=== PATIENT | male | born 1945 | race Caucasian/White ===

== ENCOUNTER 2021-02-09 09:37 | Inpatient (IN) | payer MEDICARE, MEDICAID, SELFPAY ==
[2021-02-09] VITALS (12 sets, daily range): BP systolic 134–169; BP diastolic 55–79; PULSE 61–94; RESP 14–20; TEMP 37.2–38.3; O2SAT 96–99; BMI 24.2
--- NOTE | ~2021-02-09 | FL_ITS ---
EXAMINATION: XR LUMBAR PUNCTURE CLINICAL INFORMATION: AMS, fever. COMPARISON: None TECHNIQUE: Following obtaining consent femoral fluoroscopy lumbar puncture from the ER physician, patient was placed on fluoroscopy table in prone position and low back area was cleaned and draped in usual sterile manner. 1% lidocaine was injected puncture site. A 22-gauge spinal needle was then advanced from the injection site at the skin intrathecally at the L2-L3 disc level. Images were obtained PA and lateral projections. Static was removed and clear CSF fluid collection in 3 test tubes approximately 6 mL. Postprocedure stone was introduced and needle withdrawn. Patient mendoza 60 well. Patient was very uncooperative during the exam in spite of medication. FINDINGS: On the lateral image of lumbar spine there is maintained lumbar lordosis. There is loss of superior endplate L4 to height. Rest of the vertebral heights are normal. There is loss of L5-S1 disc height. No visible acute fracture, dislocation or lytic process seen. FLUOROSCOPY TIME: 1.2 minutes. DOSE AREA PRODUCT: 22.116 uGy-m2 (microgray-meter squared) FL/FL guided lumbar puncture LP IMPRESSION: Successful fluoroscopy-guided lumbar point are performed with approximately 6 mL of clear CSF fluid was aspirated.
--- NOTE | ~2021-02-09 | CT_ITS ---
EXAMINATION: CT HEAD WITHOUT CONTRAST CLINICAL INFORMATION: AMS COMPARISON: None TECHNIQUE: Contiguous axial imaging was performed from the skull base to vertex without intravenous administration of contrast. This CT examination was performed using dose optimization techniques as appropriate, variously including the following: *Automated exposure control *Adjustment of mA and/or kV according to patient size (this includes techniques or standardized protocols for targeted exams where dose is matched to indication/reason for exam; i.e. extremities or head) *Use of iterative reconstruction technique DLP: 1385 mGy-cm FINDINGS: There is motion artifact present. There is no evidence of acute intracranial hemorrhage or territorial infarction. No abnormal mass effect or midline shift is seen. Carvajal to white matter differentiation is well preserved. No extra-axial fluid collections are identified. There is marked prominence of ventricles, sulci, and cisterns consistent with generalized atrophy. There is no abnormal attenuation within the brain parenchyma. The osseous structures and soft tissues are normal. The mastoid air cells and visualized portions of the paranasal sinuses are well aerated. There is carotid, basilar, and bilateral vertebral artery calcified plaque present. CT/CT head/brain wo con IMPRESSION: No acute intracranial pathology. Diffuse generalized atrophy.
--- NOTE | ~2021-02-09 | MR_ITS ---
EXAMINATION: MR BRAIN WITHOUT AND WITH CONTRAST CLINICAL INFORMATION: Encephalitis. COMPARISON: Head CT 02/09/2021. TECHNIQUE: Multiplanar, multisequence imaging of the brain was performed before and after the intravenous administration of 7 mL of Gadavist. FINDINGS: There is no acute infarction, hemorrhage, mass, or extra-axial fluid collection. There is moderate diffuse brain parenchymal volume loss. Mild to moderate patchy T2/FLAIR hyperintensity seen throughout the cerebral white matter and central shaka most typical of chronic microangiopathy. No definite signal abnormality seen within the limbic system. No abnormal enhancement is seen. The major arterial flow voids are preserved at the skull base. There are bilateral lens replacements. Fluid is seen within the bilateral mastoids. Advanced degenerative changes are seen within the cervical spine. There is grade 1 retrolisthesis of C3 on C4 with resultant mass effect on the ventral cord. MR/MR head/brain wo/w con IMPRESSION: No mass lesion, acute infarction, or abnormal intracranial enhancement. Moderate degree of diffuse brain parenchymal volume loss. 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 Incidentally noted advanced spondylosis with apparent mass effect on the ventral cord at the C3-C4 level which could be further characterized with cervical spine MRI.
--- NOTE | ~2021-02-09 | CT_ITS ---
EXAMINATION: CT CHEST, ABDOMEN AND PELVIS WITH CONTRAST CLINICAL INFORMATION: AMS. Question pneumonia. Pancreatitis/vomiting. COMPARISON: No pertinent prior studies are available for comparison. TECHNIQUE: Multidetector volumetric imaging was performed from the thoracic inlet through the pubic symphysis following administration of intravenous contrast of 85 mL of Omnipaque 350. Sagittal and coronal reformatted images were obtained on the technologist workstation. This CT examination was performed using dose optimization techniques as appropriate, variously including the following: *Automated exposure control *Adjustment of mA and/or kV according to patient size (this includes techniques or standardized protocols for targeted exams where dose is matched to indication/reason for exam; i.e. extremities or head) *Use of iterative reconstruction technique DLP: 368 for chest and 656 abdomen and pelvis. mGy-cm. FINDINGS: There is motion artifact present degrading study. CHEST: Lungs: Central airways are patent. No definite confluent pneumonitis is appreciated. There is some mild groundglass disease seen at the left base consistent with dependent atelectasis. No bronchiectasis appreciated. No suspicious lung nodules identified. Mediastinum: Thyroid unremarkable. Heart upper limits of normal in size. No pericardial effusion. Coronary artery calcification is seen. Nonocclusive aortic arch calcified plaque is seen. No thoracic aortic aneurysm or dissection. No mediastinal or hilar lymphadenopathy is seen. Pleura: There is no significant effusion. No pleural mass or thickening. Chest Wall/Axilla: Unremarkable. ABDOMEN/PELVIS: Motion artifact is present degrading study. Liver, Gallbladder, Biliary Tree: The liver is normal in size, shape, and attenuation. No focal hepatic lesion or biliary ductal dilatation is present. The gallbladder is unremarkable with no evidence of radiopaque gallstones, gallbladder wall thickening, or pericholecystic inflammatory changes. Pancreas: There is no evidence of acute pancreatitis. No pancreatic mass or duct dilatation is appreciated. Spleen: Unremarkable. Adrenal Glands: Unremarkable. Kidneys and Ureters: The kidneys are normal in size, shape, and attenuation. No hydronephrosis or hydroureter or calculi seen. No perinephric stranding. There is a right pelvic kidney with rotation. Bladder: Unremarkable. Gastrointestinal Tract: No dilated loops of large or small bowel are evident. No free air is identified. No free fluid is seen. No pericolonic inflammatory changes appreciated. The appendix appears unremarkable. Abdominal Wall: No hernia is demonstrated. Lymph Nodes: No lymphadenopathy appreciated. Vascular: There is moderate aortoiliac calcified plaque present. No abdominal aortic aneurysm or dissection seen. Calcified plaque is seen at the origin of the visceral vessels however they appear patent proximally. Pelvic Viscera: Prominent prostate gland with calcification present. No suspicious mass. Osseous Structures: No suspicious destructive bony lesions identified. There is multilevel degenerative disc disease seen throughout the thoracic and lumbar spine. There is compression fracture superior endplate of L4 with up to approximately 40% loss of height. There is a superior endplate compression fracture without significant loss of height of L1. CT/CT abdomen pelvis w con IMPRESSION: No significant abnormality within the chest identified. No pneumonia identified. No evidence of acute pancreatitis. No evidence of obstructive uropathy. No evidence of GI tract obstruction. Enlarged prostate gland with calcification.
--- NOTE | 2021-02-09 09:54 | ECG_ITS ---
Test Reason : SEIZURE Blood Pressure : / mmHG Vent. Rate : 066 BPM Atrial Rate : 079 BPM P-R Int : 296 ms QRS Dur : 118 ms QT Int : 438 ms P-R-T Axes : 000 -59 060 degrees QTc Int : 459 ms Sinus rhythm Mobitz 1 second degree HB Left anterior fascicular block Possible Anterior infarct , age undetermined Abnormal ECG No previous ECGs available Referred By: Derrek Mazariegos Electronically Signed By:AMELIA MATHEW
--- NOTE | 2021-02-09 10:08 | ED.GENADULT ---
HPI - General Adult General Chief complaint: Seizure Stated complaint: ams/seizure Time Seen by Provider: 02/09/21 09:54 Source: EMS and RN notes reviewed Mode of arrival: EMS Limitations: no limitations History of Present Illness HPI narrative: Patient presents to the ED for altered mental status. Patient was found altered. Patient has baseline dementia. Unaware if patient had a seizure. Patient cannot give a history. Nurse will call [facility]. Related Data Allergies Allergy/AdvReac Type Severity Reaction Status Date / Time No Known Allergies Allergy Verified 02/09/21 09:54 Review of Systems Review of Systems: Dimension altered Yes Unobtainable due to mental status Neurologic: Reports confusion Psychiatric: Psychiatric: Reports confusion [facility] Past Medical History Medical History (Updated 02/09/21 @ 17:41 by DARRYL Perez) Diabetes EtOH dependence HTN (hypertension) MDD (major depressive disorder) Wernicke encephalopathy Social History Social History Alcohol intake: never Smoked in Last 30 Days: No Use of substances other than those prescribed or required for medical reasons: No Advance Directives: Yes Advance Directives on File: Yes Advance Directives Date on File: 02/09/21 Physical Exam Vital Signs: Vital Signs: Last Vital Signs Temp 99.8 F 02/09/21 16:30 Pulse 76 02/09/21 16:30 Resp 16 02/09/21 13:13 BP 138/58 L 02/09/21 13:13 Pulse Ox 96 02/09/21 16:30 Body Mass Index 24.2 Const: General: confusion Orientation/consciousness: confusion HENMT: Head: Yes normal to inspection, Yes No palpable skull fracture present, Yes normocephalic, Yes atraumatic and No abrasion Ears: hearing grossly normal bilaterally, external ears normal, TM's normal bilaterally, TM normal on the right and TM normal on the left Neck: Neck: Yes normal visual inspection, Yes full ROM, Yes no lymphadenopathy, Yes no meningeal signs, Yes trachea midline, Yes supple and No tender Chest: Chest palpation & inspection: normal inspection of the chest and normal palpation of entire chest wall Resp: Effort & Inspection: normal respiratory effort and able to speak in complete sentences Auscultation: clear to auscultation bilaterally Cardio: Jugular venous distension: no JVD Heart sounds: S1 normal heart sound present and S2 normal heart sound present GI: Inspection: Yes normal to inspection and No abdominal wall ecchymosis Palpation (GI): Soft to palpation, not firm, nontender, no guarding and not rigid : General: No CVA tenderness and Yes no CVA tenderness Back/Spine/Pelvis: Back: no CVA tenderness, No CVA tenderness and No back tenderness Skin: General skin exam: no rashes or lesions noted and elasticity normal Neuro: Other: Patient moving all extremities. General: no meningeal signs and confusion Extrem: General: Yes normal to inspection and Yes full ROM Right lower extremity: normal to inspection and full ROM Psych: Other: Altered mental status Course Course Course Narrative: Patient is febrile will look for source of infection. Will order chest x-ray, UA and PET scan. Fluids ordered. Lactic and blood culture ordered. Reevaluation(s) Reevaluation #1: Lactic acid 4. Patient sent for head CT, chest CT, an abdominal CT. Stack tracts on 2 mg order and azithromycin. Waiting for UA. Antibiotics ordered. Spoke with Nurse Jonathon of [facility]. She states at baseline patient walks around and is alert and can have conversations. Patient able to feed himself. Last known well was last night. Nurse witnessed patient having seizure this morning. Time: 11:13 Reevaluation #2: Patient still febrile and altered mental status. Physicians signed consent was done due to patient not be able to sign from self. Patient is altered., Lumbar puncture was attempted by myself and Dr. Nesbitt and not successful. Patient will be sent for radiology fluoroscopy LP. Abdominal CT, chest CT, head CT, UA came back negative for infection Time: 14:23 Reevaluation #3: Lumbar puncture done. CSF white blood cell count of only 1. Case discussed with hospitalist Dr. Khan who agrees to accept case. Recommends MRI with gadolinum. He also recommends neuro consult for evaluation tomorrow while admitted. Patient is still altered. Time: 17:32 Medical Decision Making MDM Narrative Medical decision making narrative: Altered mental status Lab Data Result diagrams: 02/09/21 10:10 02/09/21 10:10 Labs: Lab Results 02/09/21 02/09/21 02/09/21 Range/Units 10:10 10:10 10:10 WBC 11.5 H (4.8-10.8) X10*3/uL RBC 5.10 (4.60-5.80) X10*6/uL Hgb 16.2 (14.0-18.0) g/dl Hct 46.8 (42-52) % MCV 91.8 (80-98) fL MCH 31.8 (27.0-33.0) pg MCHC 34.6 (31.0-36.0) g/dl RDW 12.1 (11.0-16.0) % Plt Count 237 (160-400) X10*3/uL MPV 9.6 (9.4-12.4) fL Immature Gran % (Auto) 0.3 (0.0-0.4) % Neut % (Auto) 88.2 H (45-73) % Lymph % (Auto) 7.1 L (20-40) % Valencia % (Auto) 4.2 (2-11) % Eos % (Auto) 0.0 (0-4) % Baso % (Auto) 0.2 (0-2) % Lymph # (Auto) 0.8 L (1.2-4.9) X10*3/uL Valencia # (Auto) 0.5 (0.1-1.2) X10*3/uL Eos # (Auto) 0.0 (0.0-0.4) X10*3/uL Baso # (Auto) 0.0 (0.0-0.2) X10*3/uL Abs Immat Gran (auto) 0.03 (0.00-0.03) X10*3/uL Absolute Neuts (auto) 10.1 H (2.0-8.3) X10*3/uL Absolute Nucleated RBC 0.000 (0.0-0.012) X10*3/uL Nucleated RBC % (auto) 0.0 (0.0-0.2) /100WBC PT (9.9-13.0) SEC INR (0.9-1.1) APTT (24.1-38.0) SEC O2 Saturation % ABG pH at Pt Temp (7.35-7.45) ABG pH (Temp Correct) (7.35-7.45) ABG pCO2 at Pt Temp (32-45) mmHg ABG pCO2 (Temp Corrct (32-45) mmHg ABG pO2 at Pt Temp (83-108) mmHg ABG pO2 (Temp Correct (83-108) ABG HCO3 (22-26) mmol/L ABG Base Excess (Actual) mmol/L Sodium 138 (135-145) mmol/L Potassium 3.9 (3.3-5.1) mmol/L Chloride 102 (96-108) mmol/L Carbon Dioxide 22 (22-29) mmol/L Anion Gap 18 (12-20) BUN 7 L (9-16) mg/dL Creatinine 0.84 (0.5-1.4) mg/dL Estim Creat Clear Calc 68.5 Estimated GFR > 60 Random Glucose 158 H (60-115) mg/dL Lactic Acid 4.0 H* (0.5-2.0) mmol/L Lactic Acid Fup @ 2Hr (0.5-2.0) mmol/L Lactic Acid Fup @ 4Hr (0.5-2.0) mmol/L Calcium 9.6 (8.4-10.2) mg/dL Total Bilirubin 2.2 H (0.0-1.0) mg/dL Direct Bilirubin 0.7 H (0.0-0.5) mg/dL AST 52 H (5-37) U/L ALT 59 H (0-40) U/L Alkaline Phosphatase 139 H (39-117) U/L Ammonia (13-55) umol/L Total Creatine Kinase 431 H (38-174) U/L Troponin I High Sens (<3.5-35.0) ng/L B-Natriuretic Peptide (<100) pg/mL Total Protein 7.1 (6.5-8.0) g/dL Albumin 4.4 (3.5-5.0) g/dL Lipase 24 (8-78) U/L Urine Color Urine Appearance Urine pH (5.0-8.0) Ur Specific Mcfarlan (1.005-1.025) Urine Protein (NEG-TRACE) MG/DL Urine Glucose (UA) (NEG) MG/DL Urine Ketones (NEG) MG/DL Urine Blood (NEG) Urine Nitrite (NEG) Ur Leukocyte Esterase (NEG) Urine RBC (0) /HPF Urine WBC (0-4) /HPF Ur Squamous Epith Cells /LPF Urine Bacteria /LPF CSF Tube Number CSF Volume ML CSF Appearance CSF Color CSF WBC MM*3 CSF RBC MM*3 CSF Monocytes % % CSF Appearance (b) CSF Glucose mg/dL CSF Total Protein (15-45) mg/dL CSF VDRL Coronavirus (PCR) (Negative) Influenza Type A (PCR) (Negative) Influenza Type B (PCR) (Negative) RSV RNA Qual (PCR) (Negative) 02/09/21 02/09/21 02/09/21 Range/Units 10:10 10:10 10:14 WBC (4.8-10.8) X10*3/uL RBC (4.60-5.80) X10*6/uL Hgb (14.0-18.0) g/dl Hct (42-52) % MCV (80-98) fL MCH (27.0-33.0) pg MCHC (31.0-36.0) g/dl RDW (11.0-16.0) % Plt Count (160-400) X10*3/uL MPV (9.4-12.4) fL Immature Gran % (Auto) (0.0-0.4) % Neut % (Auto) (45-73) % Lymph % (Auto) (20-40) % Valencia % (Auto) (2-11) % Eos % (Auto) (0-4) % Baso % (Auto) (0-2) % Lymph # (Auto) (1.2-4.9) X10*3/uL Valencia # (Auto) (0.1-1.2) X10*3/uL Eos # (Auto) (0.0-0.4) X10*3/uL Baso # (Auto) (0.0-0.2) X10*3/uL Abs Immat Gran (auto) (0.00-0.03) X10*3/uL Absolute Neuts (auto) (2.0-8.3) X10*3/uL Absolute Nucleated RBC (0.0-0.012) X10*3/uL Nucleated RBC % (auto) (0.0-0.2) /100WBC PT 11.9 (9.9-13.0) SEC INR 1.0 (0.9-1.1) APTT 26.5 (24.1-38.0) SEC O2 Saturation % ABG pH at Pt Temp (7.35-7.45) ABG pH (Temp Correct) (7.35-7.45) ABG pCO2 at Pt Temp (32-45) mmHg ABG pCO2 (Temp Corrct (32-45) mmHg ABG pO2 at Pt Temp (83-108) mmHg ABG pO2 (Temp Correct (83-108) ABG HCO3 (22-26) mmol/L ABG Base Excess (Actual) mmol/L Sodium (135-145) mmol/L Potassium (3.3-5.1) mmol/L Chloride (96-108) mmol/L Carbon Dioxide (22-29) mmol/L Anion Gap (12-20) BUN (9-16) mg/dL Creatinine (0.5-1.4) mg/dL Estim Creat Clear Calc Estimated GFR Random Glucose (60-115) mg/dL Lactic Acid (0.5-2.0) mmol/L Lactic Acid Fup @ 2Hr (0.5-2.0) mmol/L Lactic Acid Fup @ 4Hr (0.5-2.0) mmol/L Calcium (8.4-10.2) mg/dL Total Bilirubin (0.0-1.0) mg/dL Direct Bilirubin (0.0-0.5) mg/dL AST (5-37) U/L ALT (0-40) U/L Alkaline Phosphatase (39-117) U/L Ammonia (13-55) umol/L Total Creatine Kinase (38-174) U/L Troponin I High Sens 20.3 (<3.5-35.0) ng/L B-Natriuretic Peptide 148 H (<100) pg/mL Total Protein (6.5-8.0) g/dL Albumin (3.5-5.0) g/dL Lipase (8-78) U/L Urine Color Urine Appearance Urine pH (5.0-8.0) Ur Specific Mcfarlan (1.005-1.025) Urine Protein (NEG-TRACE) MG/DL Urine Glucose (UA) (NEG) MG/DL Urine Ketones (NEG) MG/DL Urine Blood (NEG) Urine Nitrite (NEG) Ur Leukocyte Esterase (NEG) Urine RBC (0) /HPF Urine WBC (0-4) /HPF Ur Squamous Epith Cells /LPF Urine Bacteria /LPF CSF Tube Number CSF Volume ML CSF Appearance CSF Color CSF WBC MM*3 CSF RBC MM*3 CSF Monocytes % % CSF Appearance (b) CSF Glucose mg/dL CSF Total Protein (15-45) mg/dL CSF VDRL Coronavirus (PCR) NEGATIVE (Negative) Influenza Type A (PCR) NEGATIVE (Negative) Influenza Type B (PCR) NEGATIVE (Negative) RSV RNA Qual (PCR) NEGATIVE (Negative) 02/09/21 02/09/21 02/09/21 Range/Units 11:59 13:01 13:21 WBC (4.8-10.8) X10*3/uL RBC (4.60-5.80) X10*6/uL Hgb (14.0-18.0) g/dl Hct (42-52) % MCV (80-98) fL MCH (27.0-33.0) pg MCHC (31.0-36.0) g/dl RDW (11.0-16.0) % Plt Count (160-400) X10*3/uL MPV (9.4-12.4) fL Immature Gran % (Auto) (0.0-0.4) % Neut % (Auto) (45-73) % Lymph % (Auto) (20-40) % Valencia % (Auto) (2-11) % Eos % (Auto) (0-4) % Baso % (Auto) (0-2) % Lymph # (Auto) (1.2-4.9) X10*3/uL Valencia # (Auto) (0.1-1.2) X10*3/uL Eos # (Auto) (0.0-0.4) X10*3/uL Baso # (Auto) (0.0-0.2) X10*3/uL Abs Immat Gran (auto) (0.00-0.03) X10*3/uL Absolute Neuts (auto) (2.0-8.3) X10*3/uL Absolute Nucleated RBC (0.0-0.012) X10*3/uL Nucleated RBC % (auto) (0.0-0.2) /100WBC PT (9.9-13.0) SEC INR (0.9-1.1) APTT (24.1-38.0) SEC O2 Saturation % ABG pH at Pt Temp (7.35-7.45) ABG pH (Temp Correct) (7.35-7.45) ABG pCO2 at Pt Temp (32-45) mmHg ABG pCO2 (Temp Corrct (32-45) mmHg ABG pO2 at Pt Temp (83-108) mmHg ABG pO2 (Temp Correct (83-108) ABG HCO3 (22-26) mmol/L ABG Base Excess (Actual) mmol/L Sodium (135-145) mmol/L Potassium (3.3-5.1) mmol/L Chloride (96-108) mmol/L Carbon Dioxide (22-29) mmol/L Anion Gap (12-20) BUN (9-16) mg/dL Creatinine (0.5-1.4) mg/dL Estim Creat Clear Calc Estimated GFR Random Glucose (60-115) mg/dL Lactic Acid (0.5-2.0) mmol/L Lactic Acid Fup @ 2Hr 2.9 H* (0.5-2.0) mmol/L Lactic Acid Fup @ 4Hr (0.5-2.0) mmol/L Calcium (8.4-10.2) mg/dL Total Bilirubin (0.0-1.0) mg/dL Direct Bilirubin (0.0-0.5) mg/dL AST (5-37) U/L ALT (0-40) U/L Alkaline Phosphatase (39-117) U/L Ammonia 26 (13-55) umol/L Total Creatine Kinase (38-174) U/L Troponin I High Sens (<3.5-35.0) ng/L B-Natriuretic Peptide (<100) pg/mL Total Protein (6.5-8.0) g/dL Albumin (3.5-5.0) g/dL Lipase (8-78) U/L Urine Color STRAW Urine Appearance CLEAR Urine pH 7.0 (5.0-8.0) Ur Specific Mcfarlan <= 1.005 (1.005-1.025) Urine Protein NEG (NEG-TRACE) MG/DL Urine Glucose (UA) 100 H (NEG) MG/DL Urine Ketones 5 (NEG) MG/DL Urine Blood TRACE (NEG) Urine Nitrite NEG (NEG) Ur Leukocyte Esterase NEG (NEG) Urine RBC 0-2 (0) /HPF Urine WBC 0 (0-4) /HPF Ur Squamous Epith Cells TRACE /LPF Urine Bacteria NONE /LPF CSF Tube Number CSF Volume ML CSF Appearance CSF Color CSF WBC MM*3 CSF RBC MM*3 CSF Monocytes % % CSF Appearance (b) CSF Glucose mg/dL CSF Total Protein (15-45) mg/dL CSF VDRL Coronavirus (PCR) (Negative) Influenza Type A (PCR) (Negative) Influenza Type B (PCR) (Negative) RSV RNA Qual (PCR) (Negative) 02/09/21 02/09/21 02/09/21 Range/Units 14:11 16:56 Unknown WBC (4.8-10.8) X10*3/uL RBC (4.60-5.80) X10*6/uL Hgb (14.0-18.0) g/dl Hct (42-52) % MCV (80-98) fL MCH (27.0-33.0) pg MCHC (31.0-36.0) g/dl RDW (11.0-16.0) % Plt Count (160-400) X10*3/uL MPV (9.4-12.4) fL Immature Gran % (Auto) (0.0-0.4) % Neut % (Auto) (45-73) % Lymph % (Auto) (20-40) % Valencia % (Auto) (2-11) % Eos % (Auto) (0-4) % Baso % (Auto) (0-2) % Lymph # (Auto) (1.2-4.9) X10*3/uL Valencia # (Auto) (0.1-1.2) X10*3/uL Eos # (Auto) (0.0-0.4) X10*3/uL Baso # (Auto) (0.0-0.2) X10*3/uL Abs Immat Gran (auto) (0.00-0.03) X10*3/uL Absolute Neuts (auto) (2.0-8.3) X10*3/uL Absolute Nucleated RBC (0.0-0.012) X10*3/uL Nucleated RBC % (auto) (0.0-0.2) /100WBC PT (9.9-13.0) SEC INR (0.9-1.1) APTT (24.1-38.0) SEC O2 Saturation 95.0 % ABG pH at Pt Temp 7.43 (7.35-7.45) ABG pH (Temp Correct) 7.41 (7.35-7.45) ABG pCO2 at Pt Temp 31 L (32-45) mmHg ABG pCO2 (Temp Corrct 33 (32-45) mmHg ABG pO2 at Pt Temp 82 L (83-108) mmHg ABG pO2 (Temp Correct 89 (83-108) ABG HCO3 21 L (22-26) mmol/L ABG Base Excess (Actual) -1.7 mmol/L Sodium (135-145) mmol/L Potassium (3.3-5.1) mmol/L Chloride (96-108) mmol/L Carbon Dioxide (22-29) mmol/L Anion Gap (12-20) BUN (9-16) mg/dL Creatinine (0.5-1.4) mg/dL Estim Creat Clear Calc Estimated GFR Random Glucose (60-115) mg/dL Lactic Acid (0.5-2.0) mmol/L Lactic Acid Fup @ 2Hr (0.5-2.0) mmol/L Lactic Acid Fup @ 4Hr 2.9 H* (0.5-2.0) mmol/L Calcium (8.4-10.2) mg/dL Total Bilirubin (0.0-1.0) mg/dL Direct Bilirubin (0.0-0.5) mg/dL AST (5-37) U/L ALT (0-40) U/L Alkaline Phosphatase (39-117) U/L Ammonia (13-55) umol/L Total Creatine Kinase (38-174) U/L Troponin I High Sens (<3.5-35.0) ng/L B-Natriuretic Peptide (<100) pg/mL Total Protein (6.5-8.0) g/dL Albumin (3.5-5.0) g/dL Lipase (8-78) U/L Urine Color Urine Appearance Urine pH (5.0-8.0) Ur Specific Mc[place]an (1.005-1.025) Urine Protein (NEG-TRACE) MG/DL Urine Glucose (UA) (NEG) MG/DL Urine Ketones (NEG) MG/DL Urine Blood (NEG) Urine Nitrite (NEG) Ur Leukocyte Esterase (NEG) Urine RBC (0) /HPF Urine WBC (0-4) /HPF Ur Squamous Epith Cells /LPF Urine Bacteria /LPF CSF Tube Number 1 CSF Volume ML CSF Appearance CSF Color CSF WBC MM*3 CSF RBC MM*3 CSF Monocytes % % CSF Appearance (b) Clear, Colorless CSF Glucose 87 mg/dL CSF Total Protein 78.0 H (15-45) mg/dL CSF VDRL Coronavirus (PCR) (Negative) Influenza Type A (PCR) (Negative) Influenza Type B (PCR) (Negative) RSV RNA Qual (PCR) (Negative) 02/09/21 02/09/21 Range/Units Unknown Unknown WBC (4.8-10.8) X10*3/uL RBC (4.60-5.80) X10*6/uL Hgb (14.0-18.0) g/dl Hct (42-52) % MCV (80-98) fL MCH (27.0-33.0) pg MCHC (31.0-36.0) g/dl RDW (11.0-16.0) % Plt Count (160-400) X10*3/uL MPV (9.4-12.4) fL Immature Gran % (Auto) (0.0-0.4) % Neut % (Auto) (45-73) % Lymph % (Auto) (20-40) % Valencia % (Auto) (2-11) % Eos % (Auto) (0-4) % Baso % (Auto) (0-2) % Lymph # (Auto) (1.2-4.9) X10*3/uL Valencia # (Auto) (0.1-1.2) X10*3/uL Eos # (Auto) (0.0-0.4) X10*3/uL Baso # (Auto) (0.0-0.2) X10*3/uL Abs Immat Gran (auto) (0.00-0.03) X10*3/uL Absolute Neuts (auto) (2.0-8.3) X10*3/uL Absolute Nucleated RBC (0.0-0.012) X10*3/uL Nucleated RBC % (auto) (0.0-0.2) /100WBC PT (9.9-13.0) SEC INR (0.9-1.1) APTT (24.1-38.0) SEC O2 Saturation % ABG pH at Pt Temp (7.35-7.45) ABG pH (Temp Correct) (7.35-7.45) ABG pCO2 at Pt Temp (32-45) mmHg ABG pCO2 (Temp Corrct (32-45) mmHg ABG pO2 at Pt Temp (83-108) mmHg ABG pO2 (Temp Correct (83-108) ABG HCO3 (22-26) mmol/L ABG Base Excess (Actual) mmol/L Sodium (135-145) mmol/L Potassium (3.3-5.1) mmol/L Chloride (96-108) mmol/L Carbon Dioxide (22-29) mmol/L Anion Gap (12-20) BUN (9-16) mg/dL Creatinine (0.5-1.4) mg/dL Estim Creat Clear Calc Estimated GFR Random Glucose (60-115) mg/dL Lactic Acid (0.5-2.0) mmol/L Lactic Acid Fup @ 2Hr (0.5-2.0) mmol/L Lactic Acid Fup @ 4Hr (0.5-2.0) mmol/L Calcium (8.4-10.2) mg/dL Total Bilirubin (0.0-1.0) mg/dL Direct Bilirubin (0.0-0.5) mg/dL AST (5-37) U/L ALT (0-40) U/L Alkaline Phosphatase (39-117) U/L Ammonia (13-55) umol/L Total Creatine Kinase (38-174) U/L Troponin I High Sens (<3.5-35.0) ng/L B-Natriuretic Peptide (<100) pg/mL Total Protein (6.5-8.0) g/dL Albumin (3.5-5.0) g/dL Lipase (8-78) U/L Urine Color Urine Appearance Urine pH (5.0-8.0) Ur Specific Mcf[place]an (1.005-1.025) Urine Protein (NEG-TRACE) MG/DL Urine Glucose (UA) (NEG) MG/DL Urine Ketones (NEG) MG/DL Urine Blood (NEG) Urine Nitrite (NEG) Ur Leukocyte Esterase (NEG) Urine RBC (0) /HPF Urine WBC (0-4) /HPF Ur Squamous Epith Cells /LPF Urine Bacteria /LPF CSF Tube Number 3 CSF Volume 2.0 ML CSF Appearance CLEAR CSF Color COLORLESS CSF WBC 1 MM*3 CSF RBC 0 MM*3 CSF Monocytes % 100 % CSF Appearance (b) CSF Glucose mg/dL CSF Total Protein (15-45) mg/dL CSF VDRL Cancelled Coronavirus (PCR) (Negative) Influenza Type A (PCR) (Negative) Influenza Type B (PCR) (Negative) RSV RNA Qual (PCR) (Negative) ECG Data Interpretation: Sinus rhythm with first-degree AV block. Ventricular rate 68. Pr interval 296. QRS 1 was 6. QTC 459. Negative STEMI Critical Care Time Critical Care Time Critical Care Time: Yes Total Critical Care Time: 60 Attestation: Patient alternative. Patient had imaging. Patient started antibiotics. Lumbar puncture done by IR was successful. Patient admitted to the hospital. Discharge Plan Discharge Clinical Impression: Acute alteration in mental status Patient Disposition: Admitted As Inpatient
[2021-02-09 10:15] LABS: MANUAL DIFF FLAG NO
[2021-02-09] MEDS: 0.9 % Sodium Chloride 1,000 ML 999 ML IV (10:15)
[2021-02-09 10:18] LABS: Basophils Percent Auto 0.2 % (0-2); Hematocrit 46.8 % (42-52); Hemoglobin 16.2 g/dl (14.0-18.0); Imm Gran Abs Auto 0.03 X10*3/uL (0.00-0.03); Imm Gran Pct Auto 0.3 % (0.0-0.4); Lymphocytes Absolute Auto 0.8 X10*3/uL (1.2-4.9); Lymphocytes Percent Auto 7.1 % (20-40); Mean Corpuscular HGB Conc 34.6 g/dl (31.0-36.0); Mean Corpuscular Hemoglobin 31.8 pg (27.0-33.0); Mean Corpuscular Volume 91.8 fL (80-98); Mean Platelet Volume 9.6 fL (9.4-12.4); Monocytes Absolute Auto 0.5 X10*3/uL (0.1-1.2); Monocytes Percent Auto 4.2 % (2-11); Neutrophils Absolute Auto 10.1 X10*3/uL (2.0-8.3); Neutrophils Percent Auto 88.2 % (45-73); Platelet Count 237 X10*3/uL (160-400); Red Cell Distribution Width 12.1 % (11.0-16.0); White Blood Count 11.5 X10*3/uL (4.8-10.8)
[2021-02-09] MEDS: Haloperidol Lactate 5 MG/ML VIAL IM (10:27)
--- NOTE | 2021-02-09 10:27 | PC.NURSE ---
pt hallucinating, grabbing at the air. vomited x 1 with noted nausea. pt cleaned up and sat up. pt continues to slide down in bed non redirectable. medicated per emar. plan for ct scan
--- NOTE | 2021-02-09 10:28 | PC.NURSE ---
pt medicated for acute nausea and restlessness to assist in stat ct scan.
[2021-02-09 10:33] LABS: Prothrombin Time 11.9 SEC (9.9-13.0)
[2021-02-09 10:36] LABS: Partial Thromboplastin Time 26.5 SEC (24.1-38.0)
[2021-02-09 10:48] LABS: B Type Natriuretic Peptide 148 pg/mL (<100); Troponin-I High Sensitivity 20.3 ng/L (<3.5-35.0)
[2021-02-09 10:57] LABS: Alanine Aminotransferase 59 U/L (0-40); Albumin Level 4.4 g/dL (3.5-5.0); Alkaline Phosphatase 139 U/L (39-117); Anion Gap 18 (12-20); Aspartate Amino Transferase 52 U/L (5-37); Bilirubin Direct 0.7 mg/dL (0.0-0.5); Bilirubin Total 2.2 mg/dL (0.0-1.0); Blood Urea Nitrogen 7 mg/dL (9-16); Calcium 9.6 mg/dL (8.4-10.2); Carbon Dioxide 22 mmol/L (22-29); Chloride 102 mmol/L (96-108); Creatinine Clr Calc Pharmacy 68.5; Estimated Glomerular Filt Rate > 60; Glucose Random 158 mg/dL (60-115); Lipase 24 U/L (8-78); Potassium 3.9 mmol/L (3.3-5.1); Sodium 138 mmol/L (135-145); Total Protein 7.1 g/dL (6.5-8.0)
[2021-02-09] MEDS: LORazepam 2 MG/ML VIAL IVPUSH (11:00)
[2021-02-09 11:02] LABS: Influenza A PCR NEGATIVE (Negative); Influenza B PCR NEGATIVE (Negative); Resp Syncy Virus RNA Qual PCR NEGATIVE (Negative); SARS COV2 PCR INHOUSE NEGATIVE (Negative)
[2021-02-09] MEDS: cefTRIAXone sodium 2 GM in 0.9 % Sodium Chloride 50 ML IV (11:11)
[2021-02-09] MEDS: iohexoL 350 MG/ML 100 ML INFUS..BTL IV (11:21)
--- NOTE | 2021-02-09 12:08 | PC.NURSE ---
pt tolerated straight cath well
[2021-02-09 12:15] LABS: Reflex Lactate? Lactic Acid Added
[2021-02-09 12:15] LABS: Glucose Urine UA 100 MG/DL (NEG); Leukocyte Esterase Urine NEG (NEG); Nitrite Urine NEG (NEG); Specific Gravity - Urine <= 1.005 (1.005-1.025); UACC Culture Trigger NO; Urine Blood TRACE (NEG); Urine Ketones 5 MG/DL (NEG); Urine Protein NEG (NEG-TRACE)
[2021-02-09] MEDS: Azithromycin 500 MG in 0.9 % Sodium Chloride 250 ML 125 MG IV (12:16)
[2021-02-09] MEDS: 0.9 % Sodium Chloride 2,041.17 ML 2041.17 ML IV (12:17)
[2021-02-09 12:24] LABS: Appearance Urine CLEAR; Color Urine STRAW
[2021-02-09 12:43] LABS: RBC Urine 0-2 /HPF (0); Squamous Epithelial Cell Urine TRACE /LPF; WBC Urine 0 /HPF (0-4)
[2021-02-09] MEDS: Acetaminophen Supp 650 MG SUPP.RECT PR (13:34)
[2021-02-09] MEDS: Lidocaine HCl 2 % MPF 5 ML VIAL INFILTRATI (13:34)
[2021-02-09 13:45] LABS: ~Lactic Acid-LAB USE ONLY 2.9 mmol/L (0.5-2.0)
[2021-02-09 13:52] LABS: Ammonia 26 umol/L (13-55)
--- NOTE | 2021-02-09 14:02 | PC.NURSE ---
attempt for lp by [place] and md archuleta
[2021-02-09 14:17] LABS: ABG Base Excess -1.7 mmol/L; ABG HCO3 21 mmol/L (22-26); ABG pCO2 31 mmHg (32-45); ABG pCO2 TC 33 mmHg (32-45); ABG pH 7.43 (7.35-7.45); ABG pH TC 7.41 (7.35-7.45); ABG pO2 82 mmHg (83-108); ABG pO2 TC 89 (83-108)
[2021-02-09 15:04] LABS: Reflex Lactate? 2 Y
--- NOTE | 2021-02-09 15:13 | PC.NURSE ---
pt to radiology for lp at this time
[2021-02-09 16:11] LABS: ABG Refer to POC result
[2021-02-09 16:48] LABS: CSF Tube # 1
[2021-02-09 16:50] LABS: CSF Appearance Clear, Colorless
[2021-02-09 16:54] LABS: Appearance CSF CLEAR; CSF Tube # 3; Color CSF COLORLESS
[2021-02-09 16:55] LABS: CSF Monos 100 %; Red Blood Cell CSF 0 MM*3; White Blood Cell CSF 1 MM*3
[2021-02-09 17:01] LABS: Adenovirus PCR Not Detected (Not Detect.); Bordetella parapertussis PCR Not Detected (Not Detect.); Bordetella pertussis PCR Not Detected (Not Detect.); Chlamydia pneumoniae PCR Not Detected (Not Detect.); Coronavirus 229E PCR Not Detected (Not Detect.); Coronavirus HKU1 PCR Not Detected (Not Detect.); Coronavirus NL63 PCR Not Detected (Not Detect.); Coronavirus OC43 PCR Not Detected (Not Detect.); Human metapneumovirus PCR Not Detected (Not Detect.); Influenza A PCR Not Detected (Not Detect.); Influenza B PCR Not Detected (Not Detect.); Mycoplasma pneumoniae PCR Not Detected (Not Detect.); Parainfluenza 1 PCR Not Detected (Not Detect.); Parainfluenza 2 PCR Not Detected (Not Detect.); Parainfluenza 3 PCR Not Detected (Not Detect.); Parainfluenza 4 PCR Not Detected (Not Detect.); RSV PCR Not Detected (Not Detect.); Rhino/Enterovirus PCR Not Detected (Not Detect.); SARS-CoV-2 PCR Not Detected (Not Detect.)
[2021-02-09 17:02] LABS: Glucose CSF 87 mg/dL
[2021-02-09 17:23] LABS: ~Lactic Acid-LAB USE ONLY 2.9 mmol/L (0.5-2.0)
[2021-02-09 17:45] LABS: Amphetamine Screen Urine Not Detected (Not Detect); Barbiturates, Urine Not Detected (Not Detect); Benzodiazepines Screen Urine Not Detected (Not Detect); Cannabinoid Screen Urine Not Detected (Not Detect); Cocaine Screen Urine Not Detected (Not Detect); Opiate Screen Urine Not Detected (Not Detect); Phencyclidine Screen Urine Not Detected (Not Detect)
--- NOTE | 2021-02-09 18:57 | PC.NURSE ---
Report from Yvonne GARRISON. Patient is sleeping, awakens to verbal stimuli and light touch. Patient heard of hearing. States Hi, I cant hear you. Able to state his first name. denies any pain. Patient then back to sleep. resp even and non labored. Vitals stable, awaiting MRI
--- NOTE | 2021-02-09 19:01 | PHA.MEDREC ---
Pharmacy Consult ? Medication Reconciliation Pharmacy has completed the medication reconciliation.
--- NOTE | 2021-02-09 20:12 | PC.NURSE ---
Patient sleeping, awakens to verbal stimuli. stating his name, states that he is okay. continues to denie pain. Patient aware that he is going for MRI. When patient asked where he is patient does not respond. Incontinent of urine. Care provided and linens changed. skin is hot to touch. rectal temp 99.6
--- NOTE | 2021-02-09 20:12 | PM.IMHP ---
History of Present Illness Date of Service: 02/09/21 Chief Complaint: encephalopathy Patient with history of alcohol abuse, who presents from rehab for confusion, increased agitation and concern for possible seizures patient was postictal and incontinent of urine at the rehab center. Apparently patient is an heavy alcohol user, who was seen at [facility], and sent to rehab and has been rehab for the past 6 weeks. Currently patient is completely obtunded, after receiving Haldol and Ativan in the ED for agitation and therefore I am unable to get much history from him. Apparently on arrival to the ED patient was agitated, combative, not compliant with care and therefore received Haldol and Ativan and currently very obtunded. Unable to review systems as patient is obtunded On arrival to the ED patient had a temp of a 100.8?, other vitals within normal range Labs are significant for 11.5, hemoglobin of 16.2, pH of 7.41, lactic acid of 4, bili of 2.2, AST of 52, ALT of 59, alk-phos of 139, CPK of 431, BNP of 148, urine negative for infection, LP done in the ED Imaging including brain MRI showed no mass acute infarction or abnormal intracranial enhancement. Moderate degree of diffuse brain parenchymal volume loss. 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 CT of the chest showed no significant abnormality within the chest identified no pneumonia Abdominal pelvic CT showed no significant abnormality Patient started on IV antibiotics and will be admitted for further management Review of Systems Review of Systems: Unable to obtain due to patient's mentation [facility] Medical History Diabetes EtOH dependence HTN (hypertension) MDD (major depressive disorder) Wernicke encephalopathy Social History Household Members: None Housing: Care Home Unable to assess alcohol history related to: Unable to respond Alcohol intake: never Patient Tobacco Use Status: Tobacco use Unknown Smoked in Last 30 Days: No Use of substances other than those prescribed or required for medical reasons: Unable to respond Currently Displaying Signs/Symptoms of Drug Intoxication Withdrawal: No Advance Directives: Yes Advance Directives on File: Yes Advance Directives Date on File: 02/09/21 Recently lost weight without trying: Unsure Meds Allergies Allergy/AdvReac Type Severity Reaction Status Date / Time No Known Allergies Allergy Verified 02/09/21 09:54 Active Medications: Current Medications Generic Name Dose Route Start Last Admin Trade Name Dorie PRN Reason Stop Dose Admin Pharmacy Consult 1 each 02/09/21 17:30 Consult Rx Perform Med Rec MISCELLANE ONCE PRN Consult order Home Medications Medication Instructions Recorded Confirmed Last Taken Type acetaminophen 325 mg tablet 650 mg PO Q4H PRN 02/09/21 02/09/21 Unknown History (Tylenol) amlodipine 5 mg tablet 1 tab PO DAILY 02/09/21 02/09/21 02/08/21 History aspirin 81 mg chewable tablet 81 mg PO DAILY 02/09/21 02/09/21 02/08/21 History atorvastatin 80 mg tablet 1 tab PO DAILY 02/09/21 02/09/21 02/08/21 History citalopram 20 mg tablet 1 tab PO DAILY 02/09/21 02/09/21 02/08/21 History donepezil 5 mg tablet 1 tab PO BEDTIME 02/09/21 02/09/21 02/08/21 History folic acid 1 mg tablet 1 mg PO DAILY 02/09/21 02/09/21 Unknown History latanoprost 0.005 % eye drops 1 drp OPHTHALMIC (EYE) BEDTIME 02/09/21 02/09/21 02/08/21 History magnesium hydroxide 400 mg/5 mL 30 ml PO BEDTIME PRN 02/09/21 02/09/21 Unknown History oral suspension (Milk of Magnesia) melatonin 3 mg tablet 6 mg PO BEDTIME PRN 02/09/21 02/09/21 Unknown History multivitamin 1 tab PO DAILY 02/09/21 02/09/21 Unknown History naltrexone 50 mg tablet 1 tab PO QAM 02/09/21 02/09/21 Unknown History Physical Exam Vital Signs and Narrative: Vital Signs: Last Vital Signs Temp 99.8 F 02/09/21 16:30 Pulse 94 02/09/21 18:51 Resp 18 02/09/21 18:51 BP 148/72 H 02/09/21 18:51 Pulse Ox 99 02/09/21 18:51 Body Mass Index 24.2 Const: Other: Obtunded, arousable to sternal rub Eyes: General: appearance normal, both eyes and all related structures Resp: Effort & Inspection: normal respiratory effort Cardio: Rate: regular rate Rhythm: regular rhythm GI: Palpation (GI): Soft to palpation Auscultation: normal bowel sounds Skin: General skin exam: no rashes or lesions noted Neuro: Other: Cannot conduct neurological exam is patient not following command Extrem: General: Yes normal to inspection and Yes no pedal edema Results Labs CBC and Chem 7: 02/10/21 05:42 02/10/21 05:42 Labs: Laboratory Results - last 24 hr 02/09/21 02/09/21 02/09/21 10:10 10:10 10:10 MCV 91.8 MCH 31.8 MCHC 34.6 RDW 12.1 Plt Count 237 MPV 9.6 Immature Gran % (Auto) 0.3 Neut % (Auto) 88.2 H Lymph % (Auto) 7.1 L [place] % (Auto) 4.2 Eos % (Auto) 0.0 Baso % (Auto) 0.2 Lymph # (Auto) 0.8 L [place] # (Auto) 0.5 Eos # (Auto) 0.0 Baso # (Auto) 0.0 Abs Immat Gran (auto) 0.03 Absolute Neuts (auto) 10.1 H Absolute Nucleated RBC 0.000 Nucleated RBC % (auto) 0.0 PT INR APTT O2 Saturation ABG pH at Pt Temp ABG pH (Temp Correct) ABG pCO2 at Pt Temp ABG pCO2 (Temp Corrct ABG pO2 at Pt Temp ABG pO2 (Temp Correct ABG HCO3 ABG Base Excess (Actual) Anion Gap 18 Estim Creat Clear Calc 68.5 Estimated GFR > 60 Random Glucose 158 H Lactic Acid 4.0 H* Lactic Acid Fup @ 2Hr Lactic Acid Fup @ 4Hr Calcium 9.6 Total Bilirubin 2.2 H Direct Bilirubin 0.7 H AST 52 H ALT 59 H Alkaline Phosphatase 139 H Ammonia Total Creatine Kinase 431 H Troponin I High Sens B-Natriuretic Peptide Total Protein 7.1 Albumin 4.4 Lipase 24 Urine Color Urine Appearance Urine pH Ur Specific [place] Urine Protein Urine Glucose (UA) Urine Ketones Urine Blood Urine Nitrite Ur Leukocyte Esterase Urine RBC Urine WBC Ur Squamous Epith Cells Urine Bacteria CSF Tube Number CSF Volume CSF Appearance CSF Color CSF WBC CSF RBC CSF Monocytes % CSF Appearance (b) CSF Glucose CSF Total Protein CSF VDRL Urine Opiates Screen Ur Barbiturates Screen Ur Phencyclidine Scrn Ur Amphetamines Screen U Benzodiazepines Scrn Urine Cocaine Screen U Marijuana (THC) Screen Coronavirus (PCR) Influenza Type A (PCR) Influenza Type B (PCR) RSV RNA Qual (PCR) 02/09/21 02/09/21 02/09/21 10:10 10:10 10:14 MCV MCH MCHC RDW Plt Count MPV Immature Gran % (Auto) Neut % (Auto) Lymph % (Auto) [place] % (Auto) Eos % (Auto) Baso % (Auto) Lymph # (Auto) [place] # (Auto) Eos # (Auto) Baso # (Auto) Abs Immat Gran (auto) Absolute Neuts (auto) Absolute Nucleated RBC Nucleated RBC % (auto) PT 11.9 INR 1.0 APTT 26.5 O2 Saturation ABG pH at Pt Temp ABG pH (Temp Correct) ABG pCO2 at Pt Temp ABG pCO2 (Temp Corrct ABG pO2 at Pt Temp ABG pO2 (Temp Correct ABG HCO3 ABG Base Excess (Actual) Anion Gap Estim Creat Clear Calc Estimated GFR Random Glucose Lactic Acid Lactic Acid Fup @ 2Hr Lactic Acid Fup @ 4Hr Calcium Total Bilirubin Direct Bilirubin AST ALT Alkaline Phosphatase Ammonia Total Creatine Kinase Troponin I High Sens 20.3 B-Natriuretic Peptide 148 H Total Protein Albumin Lipase Urine Color Urine Appearance Urine pH Ur Specific [place] Urine Protein Urine Glucose (UA) Urine Ketones Urine Blood Urine Nitrite Ur Leukocyte Esterase Urine RBC Urine WBC Ur Squamous Epith Cells Urine Bacteria CSF Tube Number CSF Volume CSF Appearance CSF Color CSF WBC CSF RBC CSF Monocytes % CSF Appearance (b) CSF Glucose CSF Total Protein CSF VDRL Urine Opiates Screen Ur Barbiturates Screen Ur Phencyclidine Scrn Ur Amphetamines Screen U Benzodiazepines Scrn Urine Cocaine Screen U Marijuana (THC) Screen Coronavirus (PCR) NEGATIVE Influenza Type A (PCR) NEGATIVE Influenza Type B (PCR) NEGATIVE RSV RNA Qual (PCR) NEGATIVE 02/09/21 02/09/21 02/09/21 11:59 11:59 13:01 MCV MCH MCHC RDW Plt Count MPV Immature Gran % (Auto) Neut % (Auto) Lymph % (Auto) [place] % (Auto) Eos % (Auto) Baso % (Auto) Lymph # (Auto) [place] # (Auto) Eos # (Auto) Baso # (Auto) Abs Immat Gran (auto) Absolute Neuts (auto) Absolute Nucleated RBC Nucleated RBC % (auto) PT INR APTT O2 Saturation ABG pH at Pt Temp ABG pH (Temp Correct) ABG pCO2 at Pt Temp ABG pCO2 (Temp Corrct ABG pO2 at Pt Temp ABG pO2 (Temp Correct ABG HCO3 ABG Base Excess (Actual) Anion Gap Estim Creat Clear Calc Estimated GFR Random Glucose Lactic Acid Lactic Acid Fup @ 2Hr 2.9 H* Lactic Acid Fup @ 4Hr Calcium Total Bilirubin Direct Bilirubin AST ALT Alkaline Phosphatase Ammonia Total Creatine Kinase Troponin I High Sens B-Natriuretic Peptide Total Protein Albumin Lipase Urine Color STRAW Urine Appearance CLEAR Urine pH 7.0 Ur Specific [place] <= 1.005 Urine Protein NEG Urine Glucose (UA) 100 H Urine Ketones 5 Urine Blood TRACE Urine Nitrite NEG Ur Leukocyte Esterase NEG Urine RBC 0-2 Urine WBC 0 Ur Squamous Epith Cells TRACE Urine Bacteria NONE CSF Tube Number CSF Volume CSF Appearance CSF Color CSF WBC CSF RBC CSF Monocytes % CSF Appearance (b) CSF Glucose CSF Total Protein CSF VDRL Urine Opiates Screen Not Detected Ur Barbiturates Screen Not Detected Ur Phencyclidine Scrn Not Detected Ur Amphetamines Screen Not Detected U Benzodiazepines Scrn Not Detected Urine Cocaine Screen Not Detected U Marijuana (THC) Screen Not Detected Coronavirus (PCR) Influenza Type A (PCR) Influenza Type B (PCR) RSV RNA Qual (PCR) 02/09/21 02/09/21 02/09/21 13:21 14:11 16:56 MCV MCH MCHC RDW Plt Count MPV Immature Gran % (Auto) Neut % (Auto) Lymph % (Auto) [place] % (Auto) Eos % (Auto) Baso % (Auto) Lymph # (Auto) [place] # (Auto) Eos # (Auto) Baso # (Auto) Abs Immat Gran (auto) Absolute Neuts (auto) Absolute Nucleated RBC Nucleated RBC % (auto) PT INR APTT O2 Saturation 95.0 ABG pH at Pt Temp 7.43 ABG pH (Temp Correct) 7.41 ABG pCO2 at Pt Temp 31 L ABG pCO2 (Temp Corrct 33 ABG pO2 at Pt Temp 82 L ABG pO2 (Temp Correct 89 ABG HCO3 21 L ABG Base Excess (Actual) -1.7 Anion Gap Estim Creat Clear Calc Estimated GFR Random Glucose Lactic Acid Lactic Acid Fup @ 2Hr Lactic Acid Fup @ 4Hr 2.9 H* Calcium Total Bilirubin Direct Bilirubin AST ALT Alkaline Phosphatase Ammonia 26 Total Creatine Kinase Troponin I High Sens B-Natriuretic Peptide Total Protein Albumin Lipase Urine Color Urine Appearance Urine pH Ur Specific [place] Urine Protein Urine Glucose (UA) Urine Ketones Urine Blood Urine Nitrite Ur Leukocyte Esterase Urine RBC Urine WBC Ur Squamous Epith Cells Urine Bacteria CSF Tube Number CSF Volume CSF Appearance CSF Color CSF WBC CSF RBC CSF Monocytes % CSF Appearance (b) CSF Glucose CSF Total Protein CSF VDRL Urine Opiates Screen Ur Barbiturates Screen Ur Phencyclidine Scrn Ur Amphetamines Screen U Benzodiazepines Scrn Urine Cocaine Screen U Marijuana (THC) Screen Coronavirus (PCR) Influenza Type A (PCR) Influenza Type B (PCR) RSV RNA Qual (PCR) 02/09/21 02/09/21 02/09/21 Unknown Unknown Unknown MCV MCH MCHC RDW Plt Count MPV Immature Gran % (Auto) Neut % (Auto) Lymph % (Auto) [place] % (Auto) Eos % (Auto) Baso % (Auto) Lymph # (Auto) [place] # (Auto) Eos # (Auto) Baso # (Auto) Abs Immat Gran (auto) Absolute Neuts (auto) Absolute Nucleated RBC Nucleated RBC % (auto) PT INR APTT O2 Saturation ABG pH at Pt Temp ABG pH (Temp Correct) ABG pCO2 at Pt Temp ABG pCO2 (Temp Corrct ABG pO2 at Pt Temp ABG pO2 (Temp Correct ABG HCO3 ABG Base Excess (Actual) Anion Gap Estim Creat Clear Calc Estimated GFR Random Glucose Lactic Acid Lactic Acid Fup @ 2Hr Lactic Acid Fup @ 4Hr Calcium Total Bilirubin Direct Bilirubin AST ALT Alkaline Phosphatase Ammonia Total Creatine Kinase Troponin I High Sens B-Natriuretic Peptide Total Protein Albumin Lipase Urine Color Urine Appearance Urine pH Ur Specific [place] Urine Protein Urine Glucose (UA) Urine Ketones Urine Blood Urine Nitrite Ur Leukocyte Esterase Urine RBC Urine WBC Ur Squamous Epith Cells Urine Bacteria CSF Tube Number 1 3 CSF Volume 2.0 CSF Appearance CLEAR CSF Color COLORLESS CSF WBC 1 CSF RBC 0 CSF Monocytes % 100 CSF Appearance (b) Clear, Colorless CSF Glucose 87 CSF Total Protein 78.0 H CSF VDRL Cancelled Urine Opiates Screen Ur Barbiturates Screen Ur Phencyclidine Scrn Ur Amphetamines Screen U Benzodiazepines Scrn Urine Cocaine Screen U Marijuana (THC) Screen Coronavirus (PCR) Influenza Type A (PCR) Influenza Type B (PCR) RSV RNA Qual (PCR) Imaging Radiologist's Impressions: Impressions Head CT 02/09/21 10:18 IMPRESSION: No acute intracranial pathology. Diffuse generalized atrophy. Abdomen/Pelvis CT 02/09/21 10:41 IMPRESSION: No significant abnormality within the chest identified. No pneumonia identified. No evidence of acute pancreatitis. No evidence of obstructive uropathy. No evidence of GI tract obstruction. Enlarged prostate gland with calcification. Chest CT 02/09/21 10:41 IMPRESSION: No significant abnormality within the chest identified. No pneumonia identified. No evidence of acute pancreatitis. No evidence of obstructive uropathy. No evidence of GI tract obstruction. Enlarged prostate gland with calcification. Lumbar Puncture Fluoroscopy 02/09/21 14:05 IMPRESSION: Successful fluoroscopy-guided lumbar point are performed with approximately 6 mL of clear CSF fluid was aspirated. Assessment and Plan (1) Encephalopathy: Status: Acute (2) Sepsis: Status: Acute (3) History of alcohol abuse: Status: Acute 75-year-old male with past medical history of alcohol abuse, who is brought into the hospital from rehab for agitation, change in mental status # encephalopathy - unclear etiology possibly secondary to Wernicke's encephalopathy given his history of alcohol abuse - patient did develop fever and has leukocytosis - LP done does not show significant infection based on WBC, glucose, and protein CT - consulted Infectious Disease - MRI, and CT scan of the head negative for any acute pathology - pending further CSF culture, added meningitis encephalitis by Infectious Disease, patient will be covered with ceftriaxone, ampicillin, vancomycin, and IV acyclovir until further results of the CSF # sepsis - unclear etiology - negative UA, chest CT negative, no soft tissue infection - LP unremarkable - pending C&S and meningitis encephalitis workup - covered with broad-spectrum antibiotics as above - follow culture # history of alcohol abuse - given concern for Wernicke's encephalopathy all start him on IV folic acid and high dose of IV thiamine - although has not had any alcohol in the last 6 with DVT prophylaxis:heparin subq Quality Stroke Does the patient have a stroke diagnosis?: No VTE Prior VTE?: No VTE Risk Level:: Medical - moderate - high VTE Device Contraindication: Treatment Not Indicated VTE Drug Contraindication: N/A - Med Ordered
[2021-02-09] MEDS: LORazepam 2 MG/ML VIAL 1 MG IVPUSH (20:36)
--- NOTE | 2021-02-09 21:23 | PC.NURSE ---
patient remains at MRI monitored by Jumana GARRISON. [place] [facility] [place], awaiting call back
--- NOTE | 2021-02-09 21:28 | PC.NURSE ---
Pt required 1mg IV Ativan during MRI in order to enable pt to particupate and remain still for scan. Tolerated well s/p medication.
[2021-02-09] MEDS: Thiamine HCL 500 MG in 0.9 % Sodium Chloride 100 ML 210 MG IV (21:45)
[2021-02-09] MEDS: Heparin Sodium,Porcine 5,000 UNIT/ML VIAL 5000 UNIT SUBCUT (21:52)
[2021-02-09] MEDS: vancomycin HCL 1,500 MG in 0.9 % Sodium Chloride 500 ML 333.33 MG IV (21:52)
[2021-02-09] MEDS: Lactated Ringers 1,000 ML 100 ML IVCONT (21:53)
--- NOTE | 2021-02-09 21:58 | PC.NURSE ---
report given to Greg GARRISON on IMC
[2021-02-09 23:00] LABS: Glucose, Whole Blood 91 mg/dL (60-115)
--- NOTE | 2021-02-10 | EEG_ITS ---
The waking background activity consists of a poorly defined 7.5 to 8 hertz posterior slow alpha, intermixed anteriorly with low-voltage fast frequencies and intermittent scattered 5 to 6 hertz theta over both hemispheres. Photic stimulation is without activation. Hyperventilation was omitted. No focal, lateralizing, or paroxysmal discharges seen. IMPRESSION: This EEG is considered mildly abnormal due to mild scattered slowing consistent with a mild encephalopathic process. No epileptiform discharges seen. MD ANCA Stephen/ENZO / [id number]
[2021-02-10] MEDS: cefTRIAXone sodium 1 GM in 0.9 % Sodium Chloride 50 ML IV (00:36)
[2021-02-10] MEDS: Ampicillin Sodium 500 MG in 0.9 % Sodium Chloride 50 ML 100 MG IV ×2 (01:26→09:02)
[2021-02-10 04:00] VITALS: BP 136/76; PULSE 73; RESP 18; TEMP 36.8; O2SAT 97
[2021-02-10] MEDS: Lactated Ringers 1,000 ML 100 ML IVCONT ×2 (05:40→15:45)
[2021-02-10] MEDS: vancomycin HCL 750 MG in 0.9 % Sodium Chloride 250 ML 265 MG IV (05:53)
[2021-02-10 05:58] LABS: MANUAL DIFF FLAG NO
[2021-02-10 06:04] LABS: Basophils Percent Auto 0.4 % (0-2); Eosinophils Absolute Auto 0.1 X10*3/uL (0.0-0.4); Hematocrit 41.9 % (42-52); Hemoglobin 14.5 g/dl (14.0-18.0); Imm Gran Abs Auto 0.01 X10*3/uL (0.00-0.03); Imm Gran Pct Auto 0.1 % (0.0-0.4); Lymphocytes Absolute Auto 1.7 X10*3/uL (1.2-4.9); Lymphocytes Percent Auto 21.8 % (20-40); Mean Corpuscular HGB Conc 34.6 g/dl (31.0-36.0); Mean Corpuscular Hemoglobin 31.9 pg (27.0-33.0); Mean Corpuscular Volume 92.3 fL (80-98); Mean Platelet Volume 9.7 fL (9.4-12.4); Monocytes Absolute Auto 0.7 X10*3/uL (0.1-1.2); Monocytes Percent Auto 9.2 % (2-11); Neutrophils Absolute Auto 5.3 X10*3/uL (2.0-8.3); Neutrophils Percent Auto 67.5 % (45-73); Platelet Count 181 X10*3/uL (160-400); Red Blood Count 4.54 X10*6/uL (4.60-5.80); Red Cell Distribution Width 12.2 % (11.0-16.0); White Blood Count 7.8 X10*3/uL (4.8-10.8)
[2021-02-10 06:42] LABS: Anion Gap 11 (12-20); Blood Urea Nitrogen 5 mg/dL (9-16); Calcium 8.8 mg/dL (8.4-10.2); Carbon Dioxide 28 mmol/L (22-29); Chloride 106 mmol/L (96-108); Creatinine Clr Calc Pharmacy 79.9; Estimated Glomerular Filt Rate > 60; Glucose Random 84 mg/dL (60-115); Potassium 3.6 mmol/L (3.3-5.1); Sodium 141 mmol/L (135-145)
[2021-02-10 07:33] VITALS: BP 154/69; PULSE 56; RESP 16; TEMP 36.3; O2SAT 98
[2021-02-10] MEDS: 0.9 % Sodium Chloride Flush 3 ML SYRINGE IVFLUSH ×4 (07:49→21:16)
[2021-02-10 07:56] LABS: Lactic Acid 0.8 mmol/L (0.5-2.0)
--- NOTE | 2021-02-10 08:37 | PC.NURSE ---
Skin/wound assessment completed today. Patient has skin tears to left elbow and left knee. Scattered bruising on arm, legs and body. Patient is turned and repositioned every two hours. All present on admission.
[2021-02-10] MEDS: Multivitamin TABLET 1 TAB PO (09:04)
[2021-02-10] MEDS: Escitalopram Oxalate 10 MG TABLET PO (09:04)
[2021-02-10] MEDS: Naltrexone HCl 50 MG TABLET PO (09:04)
[2021-02-10] MEDS: amLODIPine Besylate 5 MG TABLET PO (09:04)
[2021-02-10] MEDS: Aspirin 81 MG TAB.CHEW PO (09:05)
[2021-02-10] MEDS: Atorvastatin Calcium 80 MG TABLET PO (09:05)
[2021-02-10] MEDS: Heparin Sodium,Porcine 5,000 UNIT/ML VIAL 5000 UNIT SUBCUT ×2 (09:05→21:15)
[2021-02-10] MEDS: Thiamine HCL 500 MG in 0.9 % Sodium Chloride 100 ML 210 MG IV ×3 (09:48→21:15)
[2021-02-10 11:07] VITALS: BP 147/67; PULSE 66; RESP 20; TEMP 36.9; O2SAT 97
--- NOTE | 2021-02-10 13:53 | PM.NEUROCN ---
History of Present Illness Data of Consult Service Date: 02/10/21 Primary Care Provider: Jelena Schwartz MD HPI Reason for consult: Confusion, agitation This is a 75-year-old man with a history of alcohol abuse depression and hypertension who is an unreliable historian was brought in very confused and agitated and apparently could have been postictal and was incontinent. He now tells me that he fell down playing with his cat but did not pass out. His history is completely unreliable. He was initially sedated with Haldol and Ativan and subsequeently had the lumbar ppuncture with normal spinal fluid studies Sick CAT scan and MRI of the brain which did not show any acute findings, but age-related atrophy and microvascular disease. His mental status has improved but a he appears to be a quite confused. Review of Systems Eyes: Eyes: Reports no additional eye complaints ENT: Reports system reviewed and no additional complaints, except as documented and Reports Normal hearing present Cardiovascular: Cardiovascular: Reports no additional cardiovascular complaints Respiratory: Respiratory: Reports no additional respiratory complaints Gastrointestinal: Gastrointestinal: Reports no additional gastrointestinal complaints Genitourinary: Genitourinary: Reports no additional male genitourinary complaints Musculoskeletal: Musculoskeletal: Reports no additional musculoskeletal complaints Integumentary/Breasts: Skin/Breast: Reports system reviewed and no additional complaints, except as docu Neurologic: Reports as per HPI and Reports Normal hearing present Comments: He is alert and oriented to of person and partially to time. He knows the year and he thought it was February. He thinks he is in a nursing facility transferred there from [facility]. He follows simple commands but perseveres and confabulates a little bit. His cranial nerves are normal muscle tone and strength are normal. Reflexes hypoactive. Plantar response are flexor. Psychiatric: Psychiatric: Reports as per HPI Endocrine: Endocrine: Reports no additional endocrine complaints Hematologic/Lymphatic: Hematologic/Lymphatic: Reports no additional hematologic/lymphatic complaints Allergic/Immunologic: Allergic/Immunologic: Reports no additional allergic/immunologic complaints [facility] Past Medical History Medical History Diabetes EtOH dependence HTN (hypertension) MDD (major depressive disorder) Wernicke encephalopathy Social History Social History Household Members: None Housing: Longterm Unable to assess alcohol history related to: Unable to respond Alcohol intake: never Patient Tobacco Use Status: Tobacco use Unknown Smoked in Last 30 Days: No Use of substances other than those prescribed or required for medical reasons: Unable to respond Currently Displaying Signs/Symptoms of Drug Intoxication Withdrawal: No Advance Directives: Yes Advance Directives on File: Yes Advance Directives Date on File: 02/09/21 Recently lost weight without trying: Unsure Meds Allergies Allergy/AdvReac Type Severity Reaction Status Date / Time No Known Allergies Allergy Verified 02/09/21 09:54 Active Medications: Current Medications Generic Name Dose Route Start Last Admin Trade Name Freq PRN Reason Stop Dose Admin Acetaminophen 650 mg 02/09/21 20:36 Acetaminophen 325 Mg Tablet PO Q6H PRN Pain, Mild (Pain Scale 1-3) Amlodipine Besylate 5 mg 02/10/21 09:00 02/10/21 09:04 Amlodipine Besylate 5 Mg Tablet PO 5 mg DAILY [facility] Administration Protocol Aspirin 81 mg 02/10/21 09:00 02/10/21 09:05 Aspirin 81 Mg Tab.Chew PO 81 mg DAILY [facility] Administration Atorvastatin Calcium 80 mg 02/10/21 09:00 02/10/21 09:05 Atorvastatin Calcium 80 Mg Tablet PO 80 mg DAILY [facility] Administration Donepezil HCl 5 mg 02/09/21 21:00 02/09/21 22:59 Donepezil Hcl 5 Mg Tablet PO Not Given BEDTIME [facility] Escitalopram Oxalate 10 mg 02/10/21 09:00 02/10/21 09:04 Escitalopram Oxalate 10 Mg Tablet PO 10 mg DAILY [facility] Administration Folic Acid 1 mg 02/09/21 20:15 02/10/21 09:05 Folic Acid 1 Mg/0.2 Ml Syringe IVPUSH 1 mg DAILY [facility] Administration Heparin Sodium (Porcine) 5,000 unit 02/09/21 20:36 02/10/21 09:05 Heparin Sodium,Porcine 5,000 Unit/Ml Vial SUBCUT 5,000 unit Q12H [facility] Administration Lactated Ringer's 1,000 mls @ 100 mls/hr 02/09/21 20:36 02/10/21 05:40 Lr IVCONT 100 mls/hr .Q10H [facility] Administration Vancomycin HCl 750 mg/ Sodium 265 mls @ 265 mls/hr 02/10/21 07:00 02/10/21 07:00 Chloride IV Infused Q12H [facility] Infusion Ceftriaxone Sodium 1 gm/ 50 mls @ 100 mls/hr 02/09/21 23:45 02/10/21 01:53 Sodium Chloride IV Infused Q24H [facility] Infusion Ampicillin Sodium 500 mg/ 50 mls @ 100 mls/hr 02/09/21 23:45 02/10/21 09:32 Sodium Chloride IV Infused Q8H [facility] Infusion Acyclovir Sodium 680.39 mg/ 113.6078 mls @ 110.002 mls/hr 02/10/21 15:45 Dextrose IV Q8H [facility] Thiamine HCl 500 mg/ Sodium 105 mls @ 210 mls/hr 02/10/21 09:00 02/10/21 10:18 Chloride IV Infused TID [facility] Infusion Latanoprost 1 drop 02/09/21 21:00 02/10/21 01:05 Latanoprost 0.005 % Ophth Patricia 2.5 Ml Drops EYE-BOTH Not Given BEDTIME [facility] Magnesium Hydroxide 30 ml 02/09/21 20:36 Milk Of Magnesia 30 Ml Oral.Susp PO BEDTIME PRN Constipation Melatonin 6 mg 02/09/21 21:00 Melatonin 3 Mg Tablet PO BEDTIME PRN Insomnia Multivitamins/Vitamin C 1 tab 02/10/21 09:00 02/10/21 09:04 Multivitamin Tablet PO 1 tab DAILY [facility] Administration Naltrexone HCl 50 mg 02/10/21 09:00 02/10/21 09:04 Naltrexone Hcl 50 Mg Tablet PO 50 mg DAILY [facility] Administration Ondansetron HCl 4 mg 02/09/21 20:36 Ondansetron Hcl 4 Mg/2 Ml Vial IVPUSH Q8H PRN Nausea and Vomiting Pharmacy Consult 1 each 02/09/21 17:30 Consult Rx Perform Med Rec MISCELLANE ONCE PRN Consult order Pharmacy Consult 1 each 02/09/21 20:36 Consult Rx Vancomycin Dosing MISCELLANE DAILY PRN Consult order Sodium Chloride 3 ml 02/10/21 00:00 02/10/21 07:49 0.9 % Sodium Chloride Flush 3 Ml Syringe IVFLUSH 3 ml QSHIFT [facility] Administration Home Medications Medication Instructions Recorded Confirmed Last Taken Type acetaminophen 325 mg tablet 650 mg PO Q4H PRN 02/09/21 02/09/21 Unknown History (Tylenol) amlodipine 5 mg tablet 1 tab PO DAILY 02/09/21 02/09/21 02/08/21 History aspirin 81 mg chewable tablet 81 mg PO DAILY 02/09/21 02/09/21 02/08/21 History atorvastatin 80 mg tablet 1 tab PO DAILY 02/09/21 02/09/21 02/08/21 History citalopram 20 mg tablet 1 tab PO DAILY 02/09/21 02/09/21 02/08/21 History donepezil 5 mg tablet 1 tab PO BEDTIME 02/09/21 02/09/21 02/08/21 History folic acid 1 mg tablet 1 mg PO DAILY 02/09/21 02/09/21 Unknown History latanoprost 0.005 % eye drops 1 drp OPHTHALMIC (EYE) BEDTIME 02/09/21 02/09/21 02/08/21 History magnesium hydroxide 400 mg/5 mL 30 ml PO BEDTIME PRN 02/09/21 02/09/21 Unknown History oral suspension (Milk of Magnesia) melatonin 3 mg tablet 6 mg PO BEDTIME PRN 02/09/21 02/09/21 Unknown History multivitamin 1 tab PO DAILY 02/09/21 02/09/21 Unknown History naltrexone 50 mg tablet 1 tab PO QAM 02/09/21 02/09/21 Unknown History Physical Exam Vital Signs: Vital Signs: Last Vital Signs Temp 98.4 F 02/10/21 11:07 Pulse 66 02/10/21 11:07 Resp 20 02/10/21 11:07 BP 147/67 H 02/10/21 11:07 Pulse Ox 97 02/10/21 11:07 Body Mass Index 24.2 Const: General: cooperative, comfortable, no acute distress, well developed, alert and awake Nutritional Appearance: well nourished Orientation/consciousness: oriented to person, oriented to place and oriented to time Limitations: no limitations HENMT: Head: Yes normal to inspection, Yes normocephalic and Yes atraumatic Ears: hearing grossly normal bilaterally General nose exam: Normal external nose present Face and sinus: Yes normal facial exam Mouth: Normal oral and palatal mucosa present Eyes: General: appearance normal, both eyes and all related structures Visual Jo: normal visual jo by confrontation Alignment and Position: alignment normal Periorbital: periorbital findings normal Eyelids: Yes eyelids normal Conjunctivae: conjunctivae normal Sclerae: sclerae normal Corneas: corneas normal Pupils: Equal, round and reactive pupils present and Pupil accommodation reflex normal EOM: EOMs intact bilaterally Direct Ophthalmoscopy: normal light reflex Neck: Neck: Yes normal visual inspection, Yes full ROM and Yes no meningeal signs Thyroid: Thyroid normal Carotids: normal carotid upstroke and bounding pulses Chest: Chest palpation & inspection: normal inspection of the chest Resp: Effort & Inspection: normal respiratory effort Auscultation: clear to auscultation bilaterally Cardio: Rate: regular rate Rhythm: regular rhythm Heart sounds: S1 normal heart sound present and S2 normal heart sound present Peripheral pulses: Peripheral pulses 2+ throughout GI: Inspection: Yes normal to inspection Percussion: Yes normal to percussion Auscultation: normal bowel sounds Rectal Exam - Male: Yes deferred Back/Spine/Pelvis: Cervical Spine: normal cervical lordosis and cervical ROM normal Thoracic/Lumbar Spine: thoracic and lumbar spine normal to inspection Skin: General skin exam: no rashes or lesions noted Neuro: General: oriented to person, oriented to place, oriented to time, gait normal, tone normal, moves all extremities, Normal light touch and pain sensation, no meningeal signs, no focal motor deficits, CN's II-XI intact bilaterally, normal sensation to monofilament and deep tendon reflexes 2+ bilaterally Cranial nerves: Yes CN's II-XII intact bilaterally, Yes Equal, round and reactive pupils present, Yes Bilaterally intact EOM present, Yes Nystagmus not present, Yes Normal facial strength present, Yes Midline tongue present, Yes Normal gag reflex present, Yes Symmetric palate elevation present, Yes Normal hearing present and Yes Ability to bilaterally rotate head present Cognition (Neuro): normal cognition Speech: Other speech findings present (Neuro) Gait exam (Neuro): Normal gait present Motor exam (neuro): 5/5 motor strength present throughout, Pronator motor function not present, no tremor noted, no asterixis, Motor fasciculations not present, Normal motor muscle tone present throughout and Motor abnormalities not present Sensory Exam: Bilaterally intact graphesthesia Deep tendon reflexes (DTR's): Right triceps reflex intensity grade: 2+, Left triceps reflex intensity grade: 2+, Rt Biceps (C5, C6): 2+, Left biceps reflex intensity grade: 2+, Right brachioradialis reflex intensity grade: 2+, Left brachioradialis reflex intensity grade: 2+, Right patellar reflex intensity grade: 2+, Left patellar reflex intensity grade: 2+, Right ankle reflex intensity grade: 2+ and Left ankle reflex intensity grade: 2+ Plantar Reflex Responses: downgoing: right, left and bilateral Coordination: [id number] test normal, [id number] test normal, tandem gait normal and Romberg test negative Pupils: Normal pupillary reactivity/response: bilateral Extrem: General: Yes normal to inspection, Yes normal exam except as noted and Yes no pedal edema Psych: Appearance: grossly normal Mental Status: mental status grossly normal Speech and movement: Normal speech and movement present and Clear speech present Affect: normal affect Attitude: cooperative Thought process: Normal thought process present Results Labs CBC & Chem 7: 02/10/21 05:42 02/10/21 05:42 Labs: Short CBC 02/10/21 Range/Units 05:42 WBC 7.8 (4.8-10.8) X10*3/uL Hgb 14.5 (14.0-18.0) g/dl Hct 41.9 L (42-52) % Plt Count 181 (160-400) X10*3/uL BMP 02/10/21 05:42 Sodium 141 Potassium 3.6 Chloride 106 Carbon Dioxide 28 BUN 5 L Creatinine 0.72 Calcium 8.8 D Cardiac Enzymes 02/09/21 Range/Units 10:10 Total Creatine Kinase 431 H (38-174) U/L Microbiology Microbiology Results: Microbiology 02/09/21 10:14 Blood - Venous Blood Culture - Preliminary No growth after 24 hours. 02/09/21 10:10 Blood - Venous Blood Culture - Preliminary No growth after 24 hours. 02/09/21 Unknown Cerebrospinal Fluid Gram Stain - Final 02/09/21 Unknown Cerebrospinal Fluid CSF Examination - Final 02/09/21 Unknown Cerebrospinal Fluid Fluid Description - Final 02/09/21 Unknown Cerebrospinal Fluid CSF Culture - Preliminary No growth after 1 day Assessment and Plan (1) History of alcohol abuse: Status: Acute (2) Acute alteration in mental status: Status: Acute His workup is negative, with a negative MRI and lumbar puncture. Would check his B12 and folate levels, thyroid profile. Given thiamine intravenously. Alcohol counseling Procedures Date of Service Date of Service: 02/10/21
[2021-02-10 15:11] VITALS: BP 122/70; PULSE 68; RESP 18; TEMP 36.9; O2SAT 96
--- NOTE | 2021-02-10 15:29 | P.PNIM_ITS ---
Subjective Subjective Date of Service: 02/11/21 Interval History: Patient awake alert this morning, remembers his home address, unable to provide any meaningful history,denies fever,chills , no neck stiffness. Review of Systems General no headache ,no dizziness, no fever chills. CVS no chest pain, no palpitation. Respiratory no cough, no sputum production . Gastrointestinal no nausea, no vomiting, no abdominal pain Physical Exam Vital Signs: Vital Signs: Last Vital Signs Temp 98.4 F 02/10/21 15:11 Pulse 68 02/10/21 15:11 Resp 18 02/10/21 15:11 BP 122/70 02/10/21 15:11 Pulse Ox 96 02/10/21 15:11 Body Mass Index 24.2 General resting comfortably in no acute distress. Neck supple no JVD. CVS regular rate rhythm, Respiratory lungs clear to auscultation, no respiratory distress, no wheeze, no rhonchi. Gastrointestinal abdomen soft, nontender, bowel sounds audible, no guarding , no rigidity. Extremities no edema. Neuro nonfocal , moving all 4 extremity, speech clear. Skin no rash Objective Data Current Medications Generic Name Dose Route Start Last Admin Trade Name Freq PRN Reason Stop Dose Admin Acetaminophen 650 mg 02/09/21 20:36 Acetaminophen 325 Mg Tablet PO Q6H PRN Pain, Mild (Pain Scale 1-3) Amlodipine Besylate 5 mg 02/10/21 09:00 02/10/21 09:04 Amlodipine Besylate 5 Mg Tablet PO 5 mg DAILY MIGNON Administration Protocol Aspirin 81 mg 02/10/21 09:00 02/10/21 09:05 Aspirin 81 Mg Tab.Chew PO 81 mg DAILY MIGNON Administration Atorvastatin Calcium 80 mg 02/10/21 09:00 02/10/21 09:05 Atorvastatin Calcium 80 Mg Tablet PO 80 mg DAILY MIGNON Administration Donepezil HCl 5 mg 02/09/21 21:00 02/09/21 22:59 Donepezil Hcl 5 Mg Tablet PO Not Given BEDTIME MIGNON Escitalopram Oxalate 10 mg 02/10/21 09:00 02/10/21 09:04 Escitalopram Oxalate 10 Mg Tablet PO 10 mg DAILY MIGNON Administration Folic Acid 1 mg 02/09/21 20:15 02/10/21 09:05 Folic Acid 1 Mg/0.2 Ml Syringe IVPUSH 1 mg DAILY MIGNON Administration Heparin Sodium (Porcine) 5,000 unit 02/09/21 20:36 02/10/21 09:05 Heparin Sodium,Porcine 5,000 Unit/Ml Vial SUBCUT 5,000 unit Q12H MIGNON Administration Lactated Ringer's 1,000 mls @ 100 mls/hr 02/09/21 20:36 02/10/21 05:40 Lr IVCONT 100 mls/hr .Q10H MIGNON Administration Vancomycin HCl 750 mg/ Sodium 265 mls @ 265 mls/hr 02/10/21 07:00 02/10/21 07:00 Chloride IV Infused Q12H MIGNON Infusion Ceftriaxone Sodium 1 gm/ 50 mls @ 100 mls/hr 02/09/21 23:45 02/10/21 01:53 Sodium Chloride IV Infused Q24H MIGNON Infusion Ampicillin Sodium 500 mg/ 50 mls @ 100 mls/hr 02/09/21 23:45 02/10/21 09:32 Sodium Chloride IV Infused Q8H MIGNON Infusion Acyclovir Sodium 680.39 mg/ 113.6078 mls @ 110.002 mls/hr 02/10/21 15:45 Dextrose IV Q8H MIGNON Thiamine HCl 500 mg/ Sodium 105 mls @ 210 mls/hr 02/10/21 09:00 02/10/21 10:18 Chloride IV Infused TID MIGNON Infusion Latanoprost 1 drop 02/09/21 21:00 02/10/21 01:05 Latanoprost 0.005 % Ophth Patricia 2.5 Ml Drops EYE-BOTH Not Given BEDTIME MIGNON Magnesium Hydroxide 30 ml 02/09/21 20:36 Milk Of Magnesia 30 Ml Oral.Susp PO BEDTIME PRN Constipation Melatonin 6 mg 02/09/21 21:00 Melatonin 3 Mg Tablet PO BEDTIME PRN Insomnia Multivitamins/Vitamin C 1 tab 02/10/21 09:00 02/10/21 09:04 Multivitamin Tablet PO 1 tab DAILY MIGNON Administration Naltrexone HCl 50 mg 02/10/21 09:00 02/10/21 09:04 Naltrexone Hcl 50 Mg Tablet PO 50 mg DAILY MIGNON Administration Ondansetron HCl 4 mg 02/09/21 20:36 Ondansetron Hcl 4 Mg/2 Ml Vial IVPUSH Q8H PRN Nausea and Vomiting Pharmacy Consult 1 each 02/09/21 17:30 Consult Rx Perform Med Rec MISCELLANE ONCE PRN Consult order Pharmacy Consult 1 each 02/09/21 20:36 Consult Rx Vancomycin Dosing MISCELLANE DAILY PRN Consult order Sodium Chloride 3 ml 02/10/21 00:00 02/10/21 07:49 0.9 % Sodium Chloride Flush 3 Ml Syringe IVFLUSH 3 ml QSHIFT MIGNON Administration Labs CBC & Chem 7: 02/10/21 05:42 02/10/21 05:42 Labs: Laboratory Results - last 24 hr 02/09/21 02/09/21 02/09/21 10:10 10:14 11:59 MCV MCH MCHC RDW Plt Count MPV Immature Gran % (Auto) Neut % (Auto) Lymph % (Auto) [place] % (Auto) Eos % (Auto) Baso % (Auto) Lymph # (Auto) [place] # (Auto) Eos # (Auto) Baso # (Auto) Abs Immat Gran (auto) Absolute Neuts (auto) Absolute Nucleated RBC Nucleated RBC % (auto) O2 Saturation ABG pH at Pt Temp ABG pH (Temp Correct) ABG pCO2 at Pt Temp ABG pCO2 (Temp Corrct ABG pO2 at Pt Temp ABG pO2 (Temp Correct ABG HCO3 ABG Base Excess (Actual) Anion Gap Estim Creat Clear Calc Estimated GFR POC Glucose Random Glucose Lactic Acid Lactic Acid Fup @ 4Hr Calcium Total Creatine Kinase 431 H CSF Tube Number CSF Volume CSF Appearance CSF Color CSF WBC CSF RBC CSF Monocytes % CSF Appearance (b) CSF Glucose CSF Total Protein CSF VDRL Urine Opiates Screen Not Detected Ur Barbiturates Screen Not Detected Ur Phencyclidine Scrn Not Detected Ur Amphetamines Screen Not Detected U Benzodiazepines Scrn Not Detected Urine Cocaine Screen Not Detected U Marijuana (THC) Screen Not Detected Respiratory Panel Morales See Note Adenovirus (Rapid PCR) Not Detected B.pert (TEM-PCR) Not Detected B.parapertussis DNA PCR Not Detected C. pneumoniae DNA (PCR) Not Detected Coronavirus OC43 (PCR) Not Detected Coronavirus HKU1 (PCR) Not Detected Coronavirus 229E (PCR) Not Detected Coronavirus NL63 (PCR) Not Detected Human Metapneumovir PCR Not Detected Influenza A (RT-PCR) Not Detected Influenza B (RT-PCR) Not Detected M. pneumoniae (PCR) Not Detected Parainfluenza 1 (PCR) Not Detected Parainfluenza 2 (PCR) Not Detected Parainfluenza 3 (PCR) Not Detected Parainfluenza 4 (PCR) Not Detected RSV (PCR) Not Detected Entero/Rhino (PCR) Not Detected SARS-CoV-2 RNA (RT-PCR) Not Detected 02/09/21 02/09/21 02/09/21 14:11 16:56 22:55 MCV MCH MCHC RDW Plt Count MPV Immature Gran % (Auto) Neut % (Auto) Lymph % (Auto) [place] % (Auto) Eos % (Auto) Baso % (Auto) Lymph # (Auto) [place] # (Auto) Eos # (Auto) Baso # (Auto) Abs Immat Gran (auto) Absolute Neuts (auto) Absolute Nucleated RBC Nucleated RBC % (auto) O2 Saturation 95.0 ABG pH at Pt Temp 7.43 ABG pH (Temp Correct) 7.41 ABG pCO2 at Pt Temp 31 L ABG pCO2 (Temp Corrct 33 ABG pO2 at Pt Temp 82 L ABG pO2 (Temp Correct 89 ABG HCO3 21 L ABG Base Excess (Actual) -1.7 Anion Gap Estim Creat Clear Calc Estimated GFR POC Glucose 91 Random Glucose Lactic Acid Lactic Acid Fup @ 4Hr 2.9 H* Calcium Total Creatine Kinase CSF Tube Number CSF Volume CSF Appearance CSF Color CSF WBC CSF RBC CSF Monocytes % CSF Appearance (b) CSF Glucose CSF Total Protein CSF VDRL Urine Opiates Screen Ur Barbiturates Screen Ur Phencyclidine Scrn Ur Amphetamines Screen U Benzodiazepines Scrn Urine Cocaine Screen U Marijuana (THC) Screen Respiratory Panel Morales Adenovirus (Rapid PCR) B.pert (TEM-PCR) B.parapertussis DNA PCR C. pneumoniae DNA (PCR) Coronavirus OC43 (PCR) Coronavirus HKU1 (PCR) Coronavirus 229E (PCR) Coronavirus NL63 (PCR) Human Metapneumovir PCR Influenza A (RT-PCR) Influenza B (RT-PCR) M. pneumoniae (PCR) Parainfluenza 1 (PCR) Parainfluenza 2 (PCR) Parainfluenza 3 (PCR) Parainfluenza 4 (PCR) RSV (PCR) Entero/Rhino (PCR) SARS-CoV-2 RNA (RT-PCR) 02/09/21 02/09/21 02/09/21 Unknown Unknown Unknown MCV MCH MCHC RDW Plt Count MPV Immature Gran % (Auto) Neut % (Auto) Lymph % (Auto) [place] % (Auto) Eos % (Auto) Baso % (Auto) Lymph # (Auto) [place] # (Auto) Eos # (Auto) Baso # (Auto) Abs Immat Gran (auto) Absolute Neuts (auto) Absolute Nucleated RBC Nucleated RBC % (auto) O2 Saturation ABG pH at Pt Temp ABG pH (Temp Correct) ABG pCO2 at Pt Temp ABG pCO2 (Temp Corrct ABG pO2 at Pt Temp ABG pO2 (Temp Correct ABG HCO3 ABG Base Excess (Actual) Anion Gap Estim Creat Clear Calc Estimated GFR POC Glucose Random Glucose Lactic Acid Lactic Acid Fup @ 4Hr Calcium Total Creatine Kinase CSF Tube Number 1 3 CSF Volume 2.0 CSF Appearance CLEAR CSF Color COLORLESS CSF WBC 1 CSF RBC 0 CSF Monocytes % 100 CSF Appearance (b) Clear, Colorless CSF Glucose 87 CSF Total Protein 78.0 H CSF VDRL Cancelled Urine Opiates Screen Ur Barbiturates Screen Ur Phencyclidine Scrn Ur Amphetamines Screen U Benzodiazepines Scrn Urine Cocaine Screen U Marijuana (THC) Screen Respiratory Panel Morales Adenovirus (Rapid PCR) B.pert (TEM-PCR) B.parapertussis DNA PCR C. pneumoniae DNA (PCR) Coronavirus OC43 (PCR) Coronavirus HKU1 (PCR) Coronavirus 229E (PCR) Coronavirus NL63 (PCR) Human Metapneumovir PCR Influenza A (RT-PCR) Influenza B (RT-PCR) M. pneumoniae (PCR) Parainfluenza 1 (PCR) Parainfluenza 2 (PCR) Parainfluenza 3 (PCR) Parainfluenza 4 (PCR) RSV (PCR) Entero/Rhino (PCR) SARS-CoV-2 RNA (RT-PCR) 02/10/21 02/10/21 02/10/21 05:42 05:42 07:11 MCV 92.3 MCH 31.9 MCHC 34.6 RDW 12.2 Plt Count 181 MPV 9.7 Immature Gran % (Auto) 0.1 Neut % (Auto) 67.5 Lymph % (Auto) 21.8 [place] % (Auto) 9.2 Eos % (Auto) 1.0 Baso % (Auto) 0.4 Lymph # (Auto) 1.7 [place] # (Auto) 0.7 Eos # (Auto) 0.1 Baso # (Auto) 0.0 Abs Immat Gran (auto) 0.01 Absolute Neuts (auto) 5.3 Absolute Nucleated RBC 0.000 Nucleated RBC % (auto) 0.0 O2 Saturation ABG pH at Pt Temp ABG pH (Temp Correct) ABG pCO2 at Pt Temp ABG pCO2 (Temp Corrct ABG pO2 at Pt Temp ABG pO2 (Temp Correct ABG HCO3 ABG Base Excess (Actual) Anion Gap 11 L Estim Creat Clear Calc 79.9 Estimated GFR > 60 POC Glucose Random Glucose 84 D Lactic Acid 0.8 Lactic Acid Fup @ 4Hr Calcium 8.8 D Total Creatine Kinase CSF Tube Number CSF Volume CSF Appearance CSF Color CSF WBC CSF RBC CSF Monocytes % CSF Appearance (b) CSF Glucose CSF Total Protein CSF VDRL Urine Opiates Screen Ur Barbiturates Screen Ur Phencyclidine Scrn Ur Amphetamines Screen U Benzodiazepines Scrn Urine Cocaine Screen U Marijuana (THC) Screen Respiratory Panel [place] Adenovirus (Rapid PCR) B.pert (TEM-PCR) B.parapertussis DNA PCR C. pneumoniae DNA (PCR) Coronavirus OC43 (PCR) Coronavirus HKU1 (PCR) Coronavirus 229E (PCR) Coronavirus NL63 (PCR) Human Metapneumovir PCR Influenza A (RT-PCR) Influenza B (RT-PCR) M. pneumoniae (PCR) Parainfluenza 1 (PCR) Parainfluenza 2 (PCR) Parainfluenza 3 (PCR) Parainfluenza 4 (PCR) RSV (PCR) Entero/Rhino (PCR) SARS-CoV-2 RNA (RT-PCR) Microbiology Microbiology Results: Microbiology 02/09/21 10:14 Blood Culture - Preliminary Blood - Venous No growth after 24 hours. 02/09/21 10:10 Blood Culture - Preliminary Blood - Venous No growth after 24 hours. 02/09/21 Unknown Gram Stain - Final Cerebrospinal Fluid CSF Examination - Final Fluid Description - Final CSF Culture - Preliminary No growth after 1 day Assessment and Plan (1) Encephalopathy: Status: Acute (2) History of alcohol abuse: Status: Acute Assessment and Plan: 75-year-old male with past medical history of alcohol abuse, who is brought into the hospital from rehab for agitation, change in mental status # Acute encephalopathy resolved, seems back to baseline - unclear etiology possibly secondary to Wernicke's encephalopathy given his history of alcohol abuse/question witnessed seizure by nurse at rehab - no recurrent fevers,wbc normalized - LP does not show significant infection based on WBC, glucose, and protein CT - MRI, and CT scan of the head negative for any acute pathology. will check EEG due to ? of seizure # SIRS present on admission with fever and tachycardia, no source of infection has been identified - negative UA, chest CT negative, no soft tissue infection, LP unremarkable, will DC all antibiotics, continue IV acyclovir and follow herpes PCR # possible seizure Unclear however ED note documented witnessed seizure by nurse at facility. no clear cause of seizure. imaging negative, negative infectious workup, tox screen negative, no acute alcohol use -seen by neurology -will obtain EEG # history of alcohol abuse - given concern for Wernicke's encephalopathy will start him on high dose of IV thiamine - has not had any alcohol in the last 6 weeks DVT prophylaxis:heparin subq Quality Stroke Does the patient have a stroke diagnosis?: No VTE Prior VTE?: No VTE Risk Level:: Medical - moderate - high VTE Device Contraindication: Treatment Not Indicated VTE Drug Contraindication: N/A - Med Ordered
[2021-02-10 19:11] VITALS: BP 116/56; PULSE 65; RESP 15; TEMP 37.2; O2SAT 95
[2021-02-10] MEDS: Donepezil HCl 5 MG TABLET PO (21:15)
[2021-02-10] MEDS: Latanoprost 0.005 % Ophth Sol 2.5 ML DROPS 1 DROP EYE-BOTH (21:17)
[2021-02-11] VITALS (7 sets, daily range): BP systolic 140–166; BP diastolic 65–78; PULSE 15–78; RESP 15–18; TEMP 36.3–36.8; O2SAT 95–99
[2021-02-11] MEDS: Lactated Ringers 1,000 ML 100 ML IVCONT (03:46)
[2021-02-11 06:45] LABS: Vancomycin Trough 3.8 mcg/mL (10.0-20.0)
[2021-02-11] MEDS: Aspirin 81 MG TAB.CHEW PO (07:38)
[2021-02-11] MEDS: Atorvastatin Calcium 80 MG TABLET PO (07:38)
[2021-02-11] MEDS: amLODIPine Besylate 5 MG TABLET PO (07:39)
[2021-02-11] MEDS: Multivitamin TABLET 1 TAB PO (07:39)
[2021-02-11] MEDS: Heparin Sodium,Porcine 5,000 UNIT/ML VIAL 5000 UNIT SUBCUT ×2 (07:39→22:00)
[2021-02-11] MEDS: Escitalopram Oxalate 10 MG TABLET PO (07:39)
[2021-02-11] MEDS: Naltrexone HCl 50 MG TABLET PO (07:39)
[2021-02-11] MEDS: 0.9 % Sodium Chloride Flush 3 ML SYRINGE IVFLUSH ×3 (07:40→22:00)
[2021-02-11] MEDS: Thiamine HCL 500 MG in 0.9 % Sodium Chloride 100 ML 210 MG IV ×3 (10:46→22:00)
--- NOTE | 2021-02-11 13:36 | P.PNIM_ITS ---
Subjective Subjective Date of Service: 02/12/21 Interval History: Patient awake alert seems to be at baseline with persistent confusion although answering some questions appropriately. Review of Systems Unable to obtain detailed review of system due to confusion however denies headache, no chest pain, no abdominal pain, no nausea , no vomiting. Physical Exam Vital Signs: Vital Signs: Last Vital Signs Temp 97.6 F 02/11/21 07:11 Pulse 56 02/11/21 07:39 Resp 16 02/11/21 07:11 BP 157/67 H 02/11/21 07:39 Pulse Ox 95 02/11/21 07:11 Body Mass Index 24.2 General resting comfortably in no acute distress.? Neck? supple no JVD. CVS? regular rate rhythm, Respiratory lungs clear to auscultation, no respiratory distress, no wheeze, no rhonchi. Gastrointestinal abdomen soft, nontender, bowel sounds audible,? no guarding , no rigidity. Extremities no edema. Neuro nonfocal , moving all 4 extremity, speech clear. Skin no rash Objective Data Current Medications Generic Name Dose Route Start Last Admin Trade Name Dorie PRN Reason Stop Dose Admin Acetaminophen 650 mg 02/09/21 20:36 Acetaminophen 325 Mg Tablet PO Q6H PRN Pain, Mild (Pain Scale 1-3) Amlodipine Besylate 5 mg 02/10/21 09:00 02/11/21 07:39 Amlodipine Besylate 5 Mg Tablet PO 5 mg DAILY MIGNON Administration Protocol Aspirin 81 mg 02/10/21 09:00 02/11/21 07:38 Aspirin 81 Mg Tab.Chew PO 81 mg DAILY MIGNON Administration Atorvastatin Calcium 80 mg 02/10/21 09:00 02/11/21 07:38 Atorvastatin Calcium 80 Mg Tablet PO 80 mg DAILY MIGNON Administration Donepezil HCl 5 mg 02/09/21 21:00 02/10/21 21:15 Donepezil Hcl 5 Mg Tablet PO 5 mg BEDTIME MIGNON Administration Escitalopram Oxalate 10 mg 02/10/21 09:00 02/11/21 07:39 Escitalopram Oxalate 10 Mg Tablet PO 10 mg DAILY MIGNON Administration Folic Acid 1 mg 02/09/21 20:15 02/11/21 10:46 Folic Acid 1 Mg/0.2 Ml Syringe IVPUSH 1 mg DAILY MIGNON Administration Heparin Sodium (Porcine) 5,000 unit 02/09/21 20:36 02/11/21 07:39 Heparin Sodium,Porcine 5,000 Unit/Ml Vial SUBCUT 5,000 unit Q12H MIGNON Administration Thiamine HCl 500 mg/ Sodium 105 mls @ 210 mls/hr 02/10/21 09:00 02/11/21 11:31 Chloride IV Infused TID MIGNON Infusion Latanoprost 1 drop 02/09/21 21:00 02/10/21 21:17 Latanoprost 0.005 % Ophth Patricia 2.5 Ml Drops EYE-BOTH 1 drop BEDTIME MIGNON Administration Magnesium Hydroxide 30 ml 02/09/21 20:36 Milk Of Magnesia 30 Ml Oral.Susp PO BEDTIME PRN Constipation Melatonin 6 mg 02/09/21 21:00 Melatonin 3 Mg Tablet PO BEDTIME PRN Insomnia Multivitamins/Vitamin C 1 tab 02/10/21 09:00 02/11/21 07:39 Multivitamin Tablet PO 1 tab DAILY MIGNON Administration Naltrexone HCl 50 mg 02/10/21 09:00 02/11/21 07:39 Naltrexone Hcl 50 Mg Tablet PO 50 mg DAILY MIGNON Administration Ondansetron HCl 4 mg 02/09/21 20:36 Ondansetron Hcl 4 Mg/2 Ml Vial IVPUSH Q8H PRN Nausea and Vomiting Pharmacy Consult 1 each 02/09/21 17:30 Consult Rx Perform Med Rec MISCELLANE ONCE PRN Consult order Pharmacy Consult 1 each 02/09/21 20:36 Consult Rx Vancomycin Dosing MISCELLANE DAILY PRN Consult order Sodium Chloride 3 ml 02/10/21 00:00 02/11/21 07:40 0.9 % Sodium Chloride Flush 3 Ml Syringe IVFLUSH 3 ml QSHIFT MIGNON Administration Labs CBC & Chem 7: 02/10/21 05:42 02/10/21 05:42 Labs: Laboratory Results - last 24 hr 02/09/21 02/11/21 Unknown 05:57 CSF Mening/Enceph PCR SEE NOTE Vancomycin Trough 3.8 L Microbiology Microbiology Results: Microbiology 02/09/21 10:14 Blood Culture - Preliminary Blood - Venous No growth after 48 hours. 02/09/21 10:10 Blood Culture - Preliminary Blood - Venous No growth after 48 hours. 02/09/21 Unknown Gram Stain - Final Cerebrospinal Fluid CSF Examination - Final Fluid Description - Final CSF Culture - Preliminary No growth after 2 days Assessment and Plan (1) History of alcohol abuse: Status: Acute (2) Encephalopathy: Status: Acute (3) Acute alteration in mental status: Status: Acute Assessment and Plan: 75-year-old male with past medical history of alcohol abuse, who is brought into the hospital from rehab for agitation, change in mental status # Acute encephalopathy ?? resolved, seems back to baseline, answer few questions appropriately then start talking that makes no sense, sister verified that this is baseline - unclear etiology possibly secondary to Wernicke's encephalopathy given history of alcohol abuse/question witnessed seizure by nurse at rehab - no recurrent fevers,wbc normalized - LP does not show infection based on WBC, glucose, and protein meningitis encephalitis panel negative - MRI, and CT scan of the head negative for any acute pathology. will check EEG due to ? of seizure Patient's sister Millie called from [place] took permission from patient to return her phone call at [phone] and updated her about patient's clinical condition # SIRS present on admission with fever and tachycardia, no source of infection has been identified - negative UA, chest CT negative, no soft tissue infection, LP unremarkable, dc IV acyclovir since meningitis and encephalitis panel is negative # possible seizure Unclear however ED note documented witnessed seizure by nurse at facility. no clear cause of seizure. imaging negative, negative infectious workup, tox screen negative, no acute alcohol use -seen by neurology -will obtain EEG # history of alcohol abuse - given concern for Wernicke's encephalopathy will start him on high dose of IV thiamine, DC IV folic acid and changed to by mouth folic acid - has not had any alcohol in the last 8 weeks, as per sister patient was sent to rehab facility end of November. DVT prophylaxis:heparin subq Quality Stroke Does the patient have a stroke diagnosis?: No VTE Prior VTE?: No VTE Risk Level:: Medical - moderate - high VTE Device Contraindication: Treatment Not Indicated VTE Drug Contraindication: N/A - Med Ordered
--- NOTE | 2021-02-11 15:18 | MHC.CM.PN ---
PT IS FROM [facility] WHERE HE IS A BED HOLD. PER SNF, PT DOES NOT HAVE A HCP. CM DID SPEAK TO PTS PRIMARY CONTACT, JOANNA, WHO REPORTED CONCERN THAT THE PT WOULD NOT BE SAFE TO RETURN HOME HE DRINKS AND FAILS TO EAT OR CARE FOR HIMSELF. PT CONFUSED ON ADMISSION. CM WILL REVISIT ONCE MENTATION IMPROVES CURRENT DC PLAN IS RETURN TO [facility] VIA BLS
[2021-02-11 18:42] LABS: HSV 1 DNA, CSF Not Detected (Not Detected); HSV 2 DNA, CSF Not Detected (Not Detected); Specimen Source CSF
[2021-02-11] MEDS: Donepezil HCl 5 MG TABLET PO (22:00)
[2021-02-11] MEDS: Latanoprost 0.005 % Ophth Sol 2.5 ML DROPS 1 DROP EYE-BOTH (22:11)
[2021-02-12] VITALS (7 sets, daily range): BP systolic 132–152; BP diastolic 59–78; PULSE 53–82; RESP 18–20; TEMP 36.2–36.8; O2SAT 96–99
[2021-02-12] MEDS: Aspirin 81 MG TAB.CHEW PO (08:36)
[2021-02-12] MEDS: Thiamine HCL 500 MG in 0.9 % Sodium Chloride 100 ML 210 MG IV ×3 (08:36→20:41)
[2021-02-12] MEDS: Folic Acid 1 MG TABLET PO (08:37)
[2021-02-12] MEDS: Naltrexone HCl 50 MG TABLET PO (08:37)
[2021-02-12] MEDS: Escitalopram Oxalate 10 MG TABLET PO (08:37)
[2021-02-12] MEDS: Multivitamin TABLET 1 TAB PO (08:37)
[2021-02-12] MEDS: amLODIPine Besylate 5 MG TABLET PO (08:37)
[2021-02-12] MEDS: Atorvastatin Calcium 80 MG TABLET PO (08:37)
[2021-02-12] MEDS: Heparin Sodium,Porcine 5,000 UNIT/ML VIAL 5000 UNIT SUBCUT ×2 (08:37→20:40)
[2021-02-12] MEDS: 0.9 % Sodium Chloride Flush 3 ML SYRINGE IVFLUSH ×3 (08:38→20:42)
--- NOTE | 2021-02-12 14:25 | HO.PM.IMPN ---
Subjective Subjective Date of Service: 02/12/21 Interval History: Patient awake alert seems to be at baseline, no behavioral issues, answers few questions appropriately otherwise does not make sense. Review of Systems General no fevers, no chills CVS no chest pain, no palpitation GI no nausea, no vomiting, no abdominal pain no dysuria Skin no rash Physical Exam Vital Signs: Vital Signs: Last Vital Signs Temp 97.6 F 02/12/21 10:45 Pulse 82 02/12/21 10:45 Resp 18 02/12/21 10:45 BP 132/76 02/12/21 10:45 Pulse Ox 98 02/12/21 10:45 Body Mass Index 24.2 General resting comfortably in no acute distress.? Neck? supple no JVD. CVS? regular rate rhythm, Respiratory lungs clear to auscultation, no respiratory distress, no wheeze, no rhonchi. Gastrointestinal abdomen soft, nontender, bowel sounds audible,? no guarding , no rigidity. Extremities no edema. Neuro nonfocal , moving all 4 extremity, speech clear. Skin no rash Objective Data Current Medications Generic Name Dose Route Start Last Admin Trade Name Freq PRN Reason Stop Dose Admin Acetaminophen 650 mg 02/09/21 20:36 Acetaminophen 325 Mg Tablet PO Q6H PRN Pain, Mild (Pain Scale 1-3) Amlodipine Besylate 5 mg 02/10/21 09:00 02/12/21 08:37 Amlodipine Besylate 5 Mg Tablet PO 5 mg DAILY MIGNON Administration Protocol Aspirin 81 mg 02/10/21 09:00 02/12/21 08:36 Aspirin 81 Mg Tab.Chew PO 81 mg DAILY MIGNON Administration Atorvastatin Calcium 80 mg 02/10/21 09:00 02/12/21 08:37 Atorvastatin Calcium 80 Mg Tablet PO 80 mg DAILY MIGNON Administration Donepezil HCl 5 mg 02/09/21 21:00 02/11/21 22:00 Donepezil Hcl 5 Mg Tablet PO 5 mg BEDTIME MIGNON Administration Escitalopram Oxalate 10 mg 02/10/21 09:00 02/12/21 08:37 Escitalopram Oxalate 10 Mg Tablet PO 10 mg DAILY MIGNON Administration Folic Acid 1 mg 02/12/21 09:00 02/12/21 08:37 Folic Acid 1 Mg Tablet PO 1 mg DAILY MIGNON Administration Heparin Sodium (Porcine) 5,000 unit 02/09/21 20:36 02/12/21 08:37 Heparin Sodium,Porcine 5,000 Unit/Ml Vial SUBCUT 5,000 unit Q12H MIGNON Administration Thiamine HCl 500 mg/ Sodium 105 mls @ 210 mls/hr 02/10/21 09:00 02/12/21 10:08 Chloride IV Infused TID MIGNON Infusion Latanoprost 1 drop 02/09/21 21:00 02/11/21 22:11 Latanoprost 0.005 % Ophth Patricia 2.5 Ml Drops EYE-BOTH 1 drop BEDTIME MIGNON Administration Magnesium Hydroxide 30 ml 02/09/21 20:36 Milk Of Magnesia 30 Ml Oral.Susp PO BEDTIME PRN Constipation Melatonin 6 mg 02/09/21 21:00 Melatonin 3 Mg Tablet PO BEDTIME PRN Insomnia Multivitamins/Vitamin C 1 tab 02/10/21 09:00 02/12/21 08:37 Multivitamin Tablet PO 1 tab DAILY MIGNON Administration Naltrexone HCl 50 mg 02/10/21 09:00 02/12/21 08:37 Naltrexone Hcl 50 Mg Tablet PO 50 mg DAILY MIGNON Administration Ondansetron HCl 4 mg 02/09/21 20:36 Ondansetron Hcl 4 Mg/2 Ml Vial IVPUSH Q8H PRN Nausea and Vomiting Pharmacy Consult 1 each 02/09/21 17:30 Consult Rx Perform Med Rec MISCELLANE ONCE PRN Consult order Pharmacy Consult 1 each 02/09/21 20:36 Consult Rx Vancomycin Dosing MISCELLANE DAILY PRN Consult order Sodium Chloride 3 ml 02/10/21 00:00 02/12/21 08:38 0.9 % Sodium Chloride Flush 3 Ml Syringe IVFLUSH 3 ml QSHIFT MIGNON Administration Labs CBC & Chem 7: 02/10/21 05:42 02/10/21 05:42 Labs: Laboratory Results - last 24 hr 02/09/21 Unknown CSF Herpes I DNA (PCR) Not Detected CSF Herpes II DNA (PCR) Not Detected Body Source CSF Microbiology Microbiology Results: Microbiology 02/09/21 Unknown Gram Stain - Final Cerebrospinal Fluid CSF Examination - Final Fluid Description - Final CSF Culture - Final No growth after 3 days. 02/09/21 10:14 Blood Culture - Preliminary Blood - Venous No growth after 48 hours. 02/09/21 10:10 Blood Culture - Preliminary Blood - Venous No growth after 48 hours. Assessment and Plan (1) History of alcohol abuse: Status: Acute (2) Encephalopathy: Status: Acute Assessment and Plan: 75-year-old male with past medical history of alcohol abuse, who is brought into the hospital from rehab for agitation, change in mental status # Acute encephalopathy ?? resolved, seems back to baseline, answer few questions appropriately then start? talking that makes no sense, sister verified that this is baseline - unclear etiology possibly secondary to Wernicke's encephalopathy given history of alcohol abuse/question witnessed seizure by nurse at rehab - no recurrent fevers,wbc normalized - LP does not show infection based on WBC, glucose, and protein meningitis encephalitis panel negative - MRI, and CT scan of the head negative for any acute pathology. await EEG due to ? of seizure ? Patient's sister is Millie her phone call at [phone] pt. wishes to discuss his medical issues with her if neeeded she is not in his contact list. Will discharge back to rehab facility after EEG is obtained # SIRS present on admission with fever and tachycardia, no source of infection has been identified - negative UA, chest CT negative, no soft tissue infection, LP unremarkable, meningitis and encephalitis panel is negative. # possible seizure Unclear however ED note documented witnessed seizure by nurse at facility. no clear cause of seizure. imaging negative, negative infectious workup, tox screen negative, no acute alcohol use seen by neurology will obtain EEG # history of alcohol abuse - given concern for Wernicke's encephalopathy will cont. high dose of IV thiamine, cont. folic acid - has not had any alcohol in the last 8 weeks, as per sister patient was sent to rehab facility end of November. DVT prophylaxis:heparin subq Quality Stroke Does the patient have a stroke diagnosis?: No VTE Prior VTE?: No VTE Risk Level:: Medical - moderate - high VTE Device Contraindication: Treatment Not Indicated VTE Drug Contraindication: N/A - Med Ordered
[2021-02-12] MEDS: Latanoprost 0.005 % Ophth Sol 2.5 ML DROPS 1 DROP EYE-BOTH (20:41)
[2021-02-12] MEDS: Donepezil HCl 5 MG TABLET PO (20:41)
[2021-02-13 03:41] VITALS: BP 158/64; PULSE 63; RESP 18; TEMP 37.1; O2SAT 97
[2021-02-13 07:34] VITALS: BP 142/66; PULSE 54; RESP 17; TEMP 19.7; O2SAT 99
[2021-02-13 08:35] VITALS: BP 142/66; PULSE 54
[2021-02-13] MEDS: Multivitamin TABLET 1 TAB PO (08:35)
[2021-02-13] MEDS: Heparin Sodium,Porcine 5,000 UNIT/ML VIAL 5000 UNIT SUBCUT (08:35)
[2021-02-13] MEDS: Aspirin 81 MG TAB.CHEW PO (08:35)
[2021-02-13] MEDS: Escitalopram Oxalate 10 MG TABLET PO (08:35)
[2021-02-13] MEDS: amLODIPine Besylate 5 MG TABLET PO (08:35)
[2021-02-13] MEDS: Folic Acid 1 MG TABLET PO (08:36)
[2021-02-13] MEDS: Thiamine HCL 100 MG TABLET PO (08:36)
[2021-02-13] MEDS: 0.9 % Sodium Chloride Flush 3 ML SYRINGE IVFLUSH (08:36)
[2021-02-13] MEDS: Naltrexone HCl 50 MG TABLET PO (08:36)
[2021-02-13] MEDS: Atorvastatin Calcium 80 MG TABLET PO (08:36)
[2021-02-13 09:08] LABS: Vitamin B12 416 pg/mL (200-900)
--- NOTE | 2021-02-13 10:47 | PM.DS ---
DS: Providers Provider Date of Service: 02/13/21 Date of admission: 02/09/21 20:10 Primary care physician: Jelena Schwartz MD Consults: 02/09/21 17:46 Consult to Neurology Routine Consulting Provider: [facility] Reason for consultation: Fever and altered Has provider been notified: Yes 02/10/21 07:47 Consult to Infectious Diseases Stat Consulting Provider: Kiarra Cason Reason for consultation: encephalopathy Has provider been notified: No DS: Diagnosis Discharge Diagnosis (1) History of alcohol abuse: Status: Acute (2) Encephalopathy: Status: Acute DS: Medications Discharge Medications Home Medications: Home Medications Medication Instructions Recorded Confirmed acetaminophen 325 mg tablet 650 mg PO Q4H PRN 02/09/21 02/09/21 (Tylenol) amlodipine 5 mg tablet 1 tab PO DAILY 02/09/21 02/09/21 aspirin 81 mg chewable tablet 81 mg PO DAILY 02/09/21 02/09/21 atorvastatin 80 mg tablet 1 tab PO DAILY 02/09/21 02/09/21 citalopram 20 mg tablet 1 tab PO DAILY 02/09/21 02/09/21 donepezil 5 mg tablet 1 tab PO BEDTIME 02/09/21 02/09/21 folic acid 1 mg tablet 1 mg PO DAILY 02/09/21 02/09/21 latanoprost 0.005 % eye drops 1 drp OPHTHALMIC (EYE) BEDTIME 02/09/21 02/09/21 magnesium hydroxide 400 mg/5 mL 30 ml PO BEDTIME PRN 02/09/21 02/09/21 oral suspension (Milk of Magnesia) melatonin 3 mg tablet 6 mg PO BEDTIME PRN 02/09/21 02/09/21 multivitamin 1 tab PO DAILY 02/09/21 02/09/21 naltrexone 50 mg tablet 1 tab PO QAM 02/09/21 02/09/21 Previous Rx's Medication Instructions Recorded thiamine HCl (vitamin B1) 100 mg 100 mg PO DAILY #30 tab 02/13/21 tablet DS: Summary Hospital Course Hospital Course: History of presenting illness Chief Complaint: encephalopathy Patient with history of alcohol abuse, who presents from rehab for confusion, increased agitation and concern for possible seizures patient was postictal and incontinent of urine at the rehab center.? Apparently patient is an heavy alcohol user, who was seen at [facility], and sent to rehab and has been rehab for the past 6 weeks.? Currently patient is completely obtunded, after receiving Haldol and Ativan in the ED for agitation and therefore I am unable to get much history from him. Apparently on arrival to the ED patient was agitated, combative, not compliant with care and therefore received Haldol and Ativan and currently very obtunded.? Unable to review systems as patient is obtunded On arrival to the ED patient had a temp of a 100.8?, other vitals within normal range Labs are significant for 11.5, hemoglobin of 16.2, pH of 7.41, lactic acid of 4, bili of 2.2, AST of 52, ALT of 59, alk-phos of 139, CPK of 431, BNP of 148, urine negative for infection, LP done in the ED Imaging including brain MRI showed no mass acute infarction or abnormal intracranial enhancement.? Moderate degree of diffuse brain parenchymal volume loss.? 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 CT of the chest showed no significant abnormality within the chest identified no pneumonia Abdominal pelvic CT showed no significant abnormality Past medical history Diabetes EtOH dependence HTN (hypertension) MDD (major depressive disorder) Wernicke encephalopathy Hospital course 75-year-old male with past medical history of alcohol abuse, who is brought into the hospital from rehab for agitation, change in mental status, patient admitted with a diagnosis of acute encephalopathy Patient underwent extensive workup MRI study, and CT head were negative for acute pathology, LP was done meningitis and encephalitis panel came back negative, initially patient was placed on IV antibiotics and IV acyclovir all medications were discontinued it is due to negative workup, due to concern for a witnessed seizure at facility patient underwent EEG that showed mild generalized slow nurse and no seizure, patient vitamin B12 and folate levels are within normal range patient was treated with IV thiamine and now transitioned to by mouth thiamine and is being discharged home patient is awake alert at times gives meaningful history, otherwise is confused that seems to be at baseline since verified by patient sister ,noted to have no behavioral issues. Patient met sirs criteria on admission with fever and tachycardia, now resolved, no source of infection was found. Patient was also evaluated by Neurology and they agreed with above treatment. Time Spent with Patient Time attestation: Total time spent providing and/or coordinating discharge services: Discharge coordination time: Greater than 30 minutes Quality: Stroke Does the patient have a stroke diagnosis?: No Physical Exam Vital Signs: Vital Signs: Last Vital Signs Temp 67.5 F L 02/13/21 07:34 Pulse 54 02/13/21 08:35 Resp 17 02/13/21 07:34 BP 142/66 H 02/13/21 08:35 Pulse Ox 99 02/13/21 07:34 Body Mass Index 24.2 General resting c omfortably in no a cute distress.? Ne ck? supple no JVD. CVS? regular rate rhythm, Respirato ry lungs clear to auscultation, no r espiratory distres s, no wheeze, no r honchi. Gastrointe stinal abdomen sof t, nontender, melba l sounds audible,? no guarding , no rigidity. Extremit ies no edema. Neur o nonfocal , movin g all 4 extremity, speech clear. Ski n no rash Psych po or insight DS: Data Data Completed and Pending Labs on day of discharge: Laboratory Results - last 24 hr 02/12/21 08:22 Vitamin B12 416 Folate 18.0 Preliminary micro results at discharge 02/09/21 10:14 Blood Culture - Preliminary Blood - Venous No growth after 48 hours. 02/09/21 10:10 Blood Culture - Preliminary Blood - Venous No growth after 48 hours. Discharge Plan Discharge Patient Disposition: [facility] Discharge Diagnosis: Acute encephalopathy SIRS Chronic alcoholism Referrals: Jelena Schwartz MD [Primary Care Provider] - 1 Week Discharge Medications: New thiamine HCl (vitamin B1) 100 mg tablet 100 mg PO DAILY Qty: 30 RF: 0 Continued multivitamin Tablet 1 tab PO DAILY RF: 0 latanoprost 0.005 % drops 1 drp ophthalmic (eye) BEDTIME RF: 0 atorvastatin 80 mg tablet 1 tab PO DAILY RF: 0 acetaminophen [Tylenol] 325 mg Tablet 650 mg PO Q4H PRN (Reason: PAIN OR TEMP >100F) RF: 0 donepezil 5 mg tablet 1 tab PO BEDTIME RF: 0 naltrexone 50 mg tablet 1 tab PO QAM RF: 0 melatonin 3 mg Tablet 6 mg PO BEDTIME PRN (Reason: Insomnia) RF: 0 amlodipine 5 mg tablet 1 tab PO DAILY RF: 0 citalopram 20 mg tablet 1 tab PO DAILY RF: 0 magnesium hydroxide [Milk of Magnesia] 400 mg/5 mL Suspension 30 ml PO BEDTIME PRN (Reason: Constipation) RF: 0 aspirin 81 mg Tablet,Chewable 81 mg PO DAILY RF: 0 folic acid 1 mg Tablet 1 mg PO DAILY RF: 0 Discharge Orders: Discharge Order (Routine); Ordered 02/13/21 Ordered By: Cassidy Mustafa Diet: low fat, low cholesterol Activity on Discharge: As tolerated Stand Alone Forms: Patient Portal Discharge page Care Plan Goals: Acute encephalopathy no cause found patient seems to be at baseline initially had fevers likely had a viral infection, EEG showed no seizure, MRI study and LP unremarkable, started on thiamine 100 mg daily Health Concerns: History of alcohol abuse/has diagnosis of Wernicke's encephalopathy, Strongly recommend to abstain from alcohol, continue all home medications. Plan of Treatment: Outpatient follow-up with PCP in 7-10 days Assessment: As above
[2021-02-13 11:34] VITALS: BP 130/72; PULSE 72; RESP 17; TEMP 36.4; O2SAT 98
--- NOTE | 2021-02-13 12:08 | MHC.CM.PN ---
Addendum entered by Lynette Cruz 02/13/21 14:40: PT IS SCHEDULED TO DC BACK TO [facility] AT 1500 HOURS VIA BLS. CM RECEIVED A CALL FROM PTS SISTER, LORRIE GILLIAM ([phone]) WHO IS AWARE OF DC TIME. CM CONFIRMED WITH LORRIE THAT THE PT DOES NOT HAVE A HCP. CM WILL TASK PT REG TO HAVE LORRIE'S CONTACT INFORMATION ADDED TO HIS CHART. Original Note: PT IS CLEARED TO RETURN TO [facility] TODAY VIA [facility]. PT DOES NOT HAVE A HCP HOWEVER CM WILL CONTACT HIS PRIMARY CONTACT JOANNA AND INFORM THEM OF PTS DC.
[2021-02-15 20:36] LABS: Lyme IgG CSF Immunoblot NO BANDS DETECTED; Lyme IgM CSF Immunoblot NO BANDS DETECTED
== END 2021-02-13 15:28 | disposition skilled nursing facility (03) | DRG 71 ==
LOC: HO.ED 17:46 → HO.IMC 21:16
PROVIDERS: Internal Medicine; Physician Assistant; Physician Assistant Medical; Admitting Provider Internal Medicine; Emergency Provider Emergency Medicine; PCP Internal Medicine; Visit Provider Hospitalist
DX: G93.40 Encephalopathy, unspecified (principal); R65.10 Systemic inflammatory response syndrome (SIRS) of non-infectious origin without acute organ dysfunction; F10.20 Alcohol dependence, uncomplicated; I10 Essential (primary) hypertension; Z20.822 Contact with and (suspected) exposure to COVID-19; Z79.82 Long term (current) use of aspirin; Z79.899 Other long term (current) drug therapy
CPT/HCPCS: 0241U; 36415; 62328; 70450; 70553; 71260; 74177; 80048; 80053; 80076; 80202; 80307; 81001; 82140; 82550; 82607; 82746; 82803; 82945; 82947; 83605; 83690; 83880; 84157; 84484; 85025; 85610; 85730; 86617; 87015; 87040; 87070; 87205; 87529; 87633; 89051; 93005; 95816; 99285; A9585; J0133; J0290; J0456; J0696; J2060; J2405; J3370; J3411; Q9967

== ENCOUNTER 2021-03-31 15:01 | Inpatient (IN) | payer MEDICARE, MEDICAID, SELFPAY ==
--- NOTE | 2021-03-31 | EEG_ITS ---
The waking background activity consists of a moderate voltage 7.5 to 8 hertz posterior alpha frequency, intermixed anteriorly with low-voltage fast frequencies. Drowsiness is characterized with diffuse theta slowing. Photic stimulation is without activation. Hyperventilation was omitted. IMPRESSION: This EEG is considered mildly abnormal due to mild generalized background slowing consistent with a mild diffuse encephalopathic process. No epileptiform discharges are seen. MD ANCA Stephen/ENZO / [id number]
--- NOTE | ~2021-03-31 | CT_ITS ---
EXAMINATION: CT CHEST, ABDOMEN AND PELVIS WITH CONTRAST CLINICAL INFORMATION: Altered mental status COMPARISON: CT chest abdomen pelvis from 02/09/2021 TECHNIQUE: Multidetector volumetric CT imaging of the chest, abdomen, and pelvis was performed. Axial MIP volume rendering provided. Sagittal and coronal reformatted images were obtained. This CT examination was performed using dose optimization techniques as appropriate, variously including the following: *Automated exposure control *Adjustment of mA and/or kV according to patient size (this includes techniques or standardized protocols for targeted exams where dose is matched to indication/reason for exam; i.e. extremities or head) *Use of iterative reconstruction technique DLP: 442.22 mGy-cm (Chest). 789.10 mGy-cm (Abdomen Pelvis). FINDINGS: CHEST: LUNGS/PLEURA: Bibasilar atelectasis. Central airways are patent. No focal consolidation. No pneumothorax. No pleural effusion. MEDIASTINUM: The heart is not enlarged. No pericardial effusion. Coronary artery and aortic valve calcifications are noted. Aorta is nonaneurysmal and demonstrates atherosclerotic calcifications. The main pulmonary artery is not enlarged. No enlarged lymph nodes per size criteria. Visualized portions of the thyroid are unremarkable. AXILLA: No lymphadenopathy. ABDOMEN AND PELVIS: LIVER, GALLBLADDER, AND BILIARY TREE: The liver is normal in size, shape, and attenuation. No focal hepatic lesion or biliary ductal dilatation is present. The gallbladder is unremarkable with no evidence of radiopaque gallstones, gallbladder wall thickening, or obvious pericholecystic inflammatory changes. PANCREAS: Unremarkable. SPLEEN: Unremarkable. An 8 mm splenule is noted. ADRENAL GLANDS: Unremarkable. KIDNEYS AND URETERS: The kidneys are normal in size, shape, and attenuation. No hydronephrosis, hydroureter, or calculi seen. No perinephric stranding. BLADDER: Unremarkable. GASTROINTESTINAL TRACT: Mild fecal loading of the rectosigmoid colon. The small and large bowel are unremarkable. The appendix is unremarkable. ABDOMINAL WALL: No significant hernia is appreciated. LYMPH NODES: No enlarged lymph nodes per size criteria. VASCULAR: Abdominal aorta is nonaneurysmal. Atherosclerotic calcifications of the abdominal aorta and its branches. Pelvic phleboliths are noted. PELVIC VISCERA: The prostate is enlarged and demonstrates coarse calcifications within its body measuring 4.8 cm in greatest dimension with mild mass effect upon the urinary bladder base. OSSEOUS STRUCTURES: Osteopenia. Loss of height of the superior endplate of L4 and L1, stable. Multilevel degenerative changes. No large lytic or blastic lesions are noted. CT/CT abdomen pelvis wo con IMPRESSION: 1. No acute process of the chest, abdomen, or pelvis identified. 2. Mild fecal loading of the rectosigmoid colon. 3. Enlarged prostate with coarse calcifications within its body. 4. Stable loss of height at the superior endplate of L1 and L4.
--- NOTE | ~2021-03-31 | CT_ITS ---
EXAMINATION: CT HEAD WITHOUT CONTRAST CLINICAL INFORMATION: Altered mental status COMPARISON: CT head from 02/09/2021 TECHNIQUE: Contiguous axial imaging was performed from the skull base to vertex without intravenous administration of contrast. This CT examination was performed using dose optimization techniques as appropriate, variously including the following: *Automated exposure control *Adjustment of mA and/or kV according to patient size (this includes techniques or standardized protocols for targeted exams where dose is matched to indication/reason for exam; i.e. extremities or head) *Use of iterative reconstruction technique DLP: 815.78 mGy-cm FINDINGS: There is no evidence of acute intracranial hemorrhage or territorial infarction. Chronic white matter small vessel ischemic changes. Cerebral atrophy with ventricular prominence. No abnormal mass effect or midline shift is seen. Carvajal to white matter differentiation is well preserved. No extra-axial fluid collections are identified. The ventricles are normal in size. There is no abnormal attenuation within the brain parenchyma. The osseous structures and soft tissues are normal. The mastoid air cells and visualized portions of the paranasal sinuses are well aerated. Vertebrobasilar atherosclerotic calcifications. CT/CT head/brain wo con IMPRESSION: 1. No acute intracranial pathology. 2. Chronic white matter small vessel ischemic changes. 3. Cerebral atrophy with ventricular prominence.
--- NOTE | 2021-03-31 15:27 | ECG_ITS ---
Test Reason : AMS Blood Pressure : / mmHG Vent. Rate : 084 BPM Atrial Rate : 084 BPM P-R Int : 246 ms QRS Dur : 108 ms QT Int : 382 ms P-R-T Axes : 050 -79 061 degrees QTc Int : 451 ms Sinus rhythm with 1st degree A-V block Left axis deviation Cannot rule out Anterior infarct (cited on or before 09-FEB-2021) Abnormal ECG When compared with ECG of 09-FEB-2021 10:14, WA interval has decreased Referred By: Ashley Wright Electronically Signed By:TRAE VARELA
[2021-03-31 15:28] VITALS: BP 138/69; PULSE 78; RESP 16; TEMP 36.9; O2SAT 96; BMI 28.3
--- NOTE | 2021-03-31 16:34 | ED.AMS ---
HPI - Altered Mental Status General Chief Complaint: Altered Mental Status Stated Complaint: period of unresponsiveness Time Seen by Provider: 03/31/21 15:27 Source: patient, EMS and RN notes reviewed Mode of arrival: EMS Limitations: altered mental status History of Present Illness HPI narrative: seen here in February for confusion possible seizures - encephalitis and seizures ruled out underwent LP and MRI at that time EEG no acute seizure activity today reportedly more confused looking off, last seen sometime today EMS stated the patient vomited and smelled of ETOH but he is at [facility] MD complaint: altered mental status, confusion and decreased responsiveness Onset (ago): unknown (sometime this AM) Timing confirmed by: caregiver Severity: moderate Consistency of symptoms: constant Context: alcohol abuse and history of similar presentation Associated symptoms: denies other symptoms Related Data Home Medications Medication Instructions Recorded Confirmed acetaminophen 325 mg tablet 650 mg PO Q4H PRN 02/09/21 02/09/21 (Tylenol) amlodipine 5 mg tablet 1 tab PO DAILY 02/09/21 02/09/21 aspirin 81 mg chewable tablet 81 mg PO DAILY 02/09/21 02/09/21 atorvastatin 80 mg tablet 1 tab PO DAILY 02/09/21 02/09/21 citalopram 20 mg tablet 1 tab PO DAILY 02/09/21 02/09/21 donepezil 5 mg tablet 1 tab PO BEDTIME 02/09/21 02/09/21 folic acid 1 mg tablet 1 mg PO DAILY 02/09/21 02/09/21 latanoprost 0.005 % eye drops 1 drp OPHTHALMIC (EYE) BEDTIME 02/09/21 02/09/21 magnesium hydroxide 400 mg/5 mL 30 ml PO BEDTIME PRN 02/09/21 02/09/21 oral suspension (Milk of Magnesia) melatonin 3 mg tablet 6 mg PO BEDTIME PRN 02/09/21 02/09/21 multivitamin 1 tab PO DAILY 02/09/21 02/09/21 naltrexone 50 mg tablet 1 tab PO QAM 02/09/21 02/09/21 Previous Rx's Medication Instructions Recorded thiamine HCl (vitamin B1) 100 mg 100 mg PO DAILY #30 tab 02/13/21 tablet Allergies Allergy/AdvReac Type Severity Reaction Status Date / Time No Known Allergies Allergy Verified 02/09/21 09:54 Review of Systems Review of Systems: ROS unable to be obtained due to altered mental status PMFSH Past Medical History Source: old records reviewed Medical History Diabetes EtOH dependence History of alcohol abuse HTN (hypertension) MDD (major depressive disorder) Wernicke encephalopathy Social History Social History Household Members: None Housing: Senior Living Unable to assess alcohol history related to: Unable to respond Alcohol intake: never Patient Tobacco Use Status: Tobacco use Unknown Advance Directives: Yes Advance Directives on File: Yes Advance Directives Date on File: 02/09/21 Current occupational status: retired Physical Exam Vital Signs: Vital Signs: Last Vital Signs Temp 98.4 F 03/31/21 15:28 Pulse 78 03/31/21 15:28 Resp 16 03/31/21 15:28 BP 138/69 03/31/21 15:28 Pulse Ox 96 03/31/21 15:28 Body Mass Index 28.3 Appearance: Somnolent but awakes to voice, mild acute distress. Eyes: Pupils equal, round and reactive to light. Rightward gaze no tremors or facial movements noted, uses L hand to itch side of face but will not look to the left ENT: Pharynx normal. Neck: Normal inspection. Neck supple. CVS: Normal heart rate and rhythm. Pulses normal. Respiratory: No respiratory distress. Breath sounds normal. Abdomen: Soft and nontender. no grimace Skin: Skin warm and dry. pale skin color. Normal skin turgor. Extremities: No lower extremity edema. No calf ttp Neuro: moves all extremities to pain, does not speak, will squeeze hands when asked. rightward gaze at times no nystagmus noted Course Course Course Narrative: signed out to Aundrea ANDREWS pending workup seems improved with ativan - will load with keppra in case of partial seizures MDM - Altered Mental Status MDM Narrative Medical decision making narrative: 75 yo male with hx of wernicke's, HLD, cognitive impairment comes in with AMS more confusion - similar to prior visit in February with neg infectious/seizure workup. At this time he does have a fixed gaze to the right but he is not neglected his L side I do not see any abnormal movements, I am going to give low dose ativan in case of subclinical seizures but he is squeezing hands and opening eyes to voice. Labs, tox screen, CT head/chest/abdomen for infection, dispo per results and findings. ECG Data ECG #1: ECG interpretation date: 03/31/21 ECG interpretation time: 16:43 Interpretation: Rate: 84 Rhythm: NSR with 1st degree AVB [place]: left Normal P waves. Normal JESSENIA. Normal QRS complex. Poor R wave progression ST T wave : nonspecific, no TORI qTC: normal prior studies: no sig ischemia The study has been interpreted contemporaneously by me. . Discharge Plan Discharge Clinical Impression: Altered mental status Qualifiers: Altered mental status type: unspecified Qualified Code(s): R41.82 - Altered mental status, unspecified Prescriptions: No [facility] multivitamin Tablet 1 tab PO DAILY RF: 0 latanoprost 0.005 % drops 1 drp ophthalmic (eye) BEDTIME RF: 0 atorvastatin 80 mg tablet 1 tab PO DAILY RF: 0 acetaminophen [Tylenol] 325 mg Tablet 650 mg PO Q4H PRN (Reason: PAIN OR TEMP >100F) RF: 0 donepezil 5 mg tablet 1 tab PO BEDTIME RF: 0 naltrexone 50 mg tablet 1 tab PO QAM RF: 0 melatonin 3 mg Tablet 6 mg PO BEDTIME PRN (Reason: Insomnia) RF: 0 amlodipine 5 mg tablet 1 tab PO DAILY RF: 0 citalopram 20 mg tablet 1 tab PO DAILY RF: 0 magnesium hydroxide [Milk of Magnesia] 400 mg/5 mL Suspension 30 ml PO BEDTIME PRN (Reason: Constipation) RF: 0 aspirin 81 mg Tablet,Chewable 81 mg PO DAILY RF: 0 folic acid 1 mg Tablet 1 mg PO DAILY RF: 0 thiamine HCl (vitamin B1) 100 mg tablet 100 mg PO DAILY Qty: 30 RF: 0
[2021-03-31] MEDS: LORazepam 2 MG/ML VIAL 0.5 MG IVPUSH (16:35)
[2021-03-31] MEDS: 0.9 % Sodium Chloride 500 ML IV (16:36)
--- NOTE | 2021-03-31 16:44 | PC.NURSE ---
pt continues rightward tic [place] motion of head and neck after ativan. pt has made purposefull arm and gand movements to adjust bedding and resists blood draws, still nonverbal.
--- NOTE | 2021-03-31 16:52 | PHA.MEDREC ---
Pharmacy Consult ? Medication Reconciliation Pharmacy has completed the medication reconciliation Natasha BarbosaD.
[2021-03-31 16:59] LABS: Appearance Urine CLEAR; Color Urine YELLOW; Glucose Urine UA NEG (NEG); Leukocyte Esterase Urine NEG (NEG); Nitrite Urine NEG (NEG); PH 5.5 (5.0-8.0); Specific Gravity - Urine >= 1.030 (1.005-1.025); UACC Culture Trigger NO; Urine Blood 1+ (NEG); Urine Ketones 40 MG/DL (NEG); Urine Protein 1+ MG/DL (NEG-TRACE)
[2021-03-31 17:07] LABS: Ethanol < 10 mg/dL
[2021-03-31 17:09] LABS: Ammonia 43 umol/L (13-55)
[2021-03-31 17:19] LABS: Amphetamine Screen Urine Not Detected (Not Detect); Barbiturates, Urine Not Detected (Not Detect); Benzodiazepines Screen Urine Not Detected (Not Detect); Cannabinoid Screen Urine Not Detected (Not Detect); Cocaine Screen Urine Not Detected (Not Detect); Fentanyl, urine POSITIVE (Not Detect); Opiate Screen Urine Not Detected (Not Detect); Phencyclidine Screen Urine Not Detected (Not Detect)
[2021-03-31] MEDS: levETIRAcetam in NaCl (iso-os) 1,000 MG/100 ML PIGGYBACK 400 MG IV (17:27)
[2021-03-31 17:46] LABS: WBC Urine 0-2 /HPF (0-4)
[2021-03-31 17:47] LABS: Amorphous Sediment Urine TRACE /LPF; Granular Casts Urine 0-2 /LPF; Hyaline Casts Urine 0-2 /LPF; Renal Epithelial Cells Urine TRACE /LPF; Squamous Epithelial Cell Urine TRACE /LPF
[2021-03-31 17:47] LABS: Basophils Percent Auto 0.1 % (0-2); Eosinophils Percent Auto 0.2 % (0-4); Hematocrit 47.9 % (42-52); Hemoglobin 16.6 g/dl (14.0-18.0); Imm Gran Abs Auto 0.05 X10*3/uL (0.00-0.03); Imm Gran Pct Auto 0.5 % (0.0-0.4); Lymphocytes Absolute Auto 0.6 X10*3/uL (1.2-4.9); Lymphocytes Percent Auto 5.3 % (20-40); MANUAL DIFF FLAG SCAN; Mean Corpuscular HGB Conc 34.7 g/dl (31.0-36.0); Mean Corpuscular Hemoglobin 31.6 pg (27.0-33.0); Mean Corpuscular Volume 91.2 fL (80-98); Mean Platelet Volume 10.2 fL (9.4-12.4); Monocytes Absolute Auto 0.2 X10*3/uL (0.1-1.2); Neutrophils Absolute Auto 9.6 X10*3/uL (2.0-8.3); Neutrophils Percent Auto 91.9 % (45-73); PLT CLUMP 1; Red Blood Count 5.25 X10*6/uL (4.60-5.80); SCAN SMEAR FLAG 1; White Blood Count 10.5 X10*3/uL (4.8-10.8)
[2021-03-31 17:51] LABS: Venous Blood Gas Refer to POC result
[2021-03-31 17:51] LABS: Prothrombin Time 11.9 SEC (9.9-13.0)
[2021-03-31 17:51] LABS: VBG HCO3 23 mmol/L (22-26); VBG pCO2 39 mmHg; VBG pH 7.38 (7.32-7.43); VBG pO2 31 mmHg
[2021-03-31 17:51] LABS: IDNOW Serial# 9DD0AD1C
[2021-03-31 17:52] LABS: COVID-19 Test Negative (Negative)
[2021-03-31 18:04] LABS: Anion Gap 16 (12-20); Blood Urea Nitrogen 7 mg/dL (9-16); Calcium 9.1 mg/dL (8.4-10.2); Carbon Dioxide 22 mmol/L (22-29); Chloride 102 mmol/L (96-108); Creatinine Clr Calc Pharmacy 66.9; Estimated Glomerular Filt Rate > 60; Glucose Random 143 mg/dL (60-115); Potassium 3.8 mmol/L (3.3-5.1); Sodium 136 mmol/L (135-145)
[2021-03-31 18:05] LABS: Alanine Aminotransferase 36 U/L (0-40); Albumin Level 4.5 g/dL (3.5-5.0); Alkaline Phosphatase 120 U/L (39-117); Aspartate Amino Transferase 31 U/L (5-37); Bilirubin Direct 0.9 mg/dL (0.0-0.5); Bilirubin Total 2.7 mg/dL (0.0-1.0); Lipase 15 U/L (8-78); Magnesium 2.1 mg/dL (1.6-2.6); Total Protein 7.1 g/dL (6.5-8.0)
[2021-03-31 18:08] LABS: Platelet Count 133 X10*3/uL (160-400)
[2021-03-31 18:09] LABS: SLIDE REVIEW VERIFIED
[2021-03-31 18:10] LABS: Troponin-I High Sensitivity 22.6 ng/L (<3.5-35.0)
[2021-03-31 18:28] VITALS: BP 126/75; PULSE 88; O2SAT 97
--- NOTE | 2021-03-31 18:30 | PC.NURSE ---
pt asleep, opens eys to painfull bu is nonverbal resps spontanepous and nonlabored. ns in lead 2. pt still has tic like glances to r.
[2021-03-31 18:39] LABS: Reflex Lactate? Lactic Acid Added
--- NOTE | 2021-03-31 21:41 | P.HPHOSP_ITS ---
History of Present Illness Date of Service: 03/31/21 Chief Complaint: Altered mental status 75-year-old male with a past medical history alcohol abuse, Wernicke's encephalopathy, diabetes, dementia, recent admission to the hospital in January of 2021 altered mental status with negative workup including MRI, CT head, LP, even had EEG which showed generalized slowing as there are concern for seizure; folate and B12 levels within the normal limits; patient was given IV time in and subsequently discharged to the group home. Presented today to the hospital with a chief complaint of altered mental status. Patient is dose in lethargic in the ER. Most of the history obtained from the patient's sister Millie Reportedly when she spoke to him yesterday he seems to be fairly coherent and has been actively involved with physical therapy; still weak and unable to ambulate independently without the help of a walker. Has been tolerating diet okay. She mentioned that she does not think he had any signs of infection. But reports patient is generally weak. Today patient was sent by the group home staff with a chief complaint of altered mental status. I tried to call the patient's group home-no one picked up phone. I also tried to reach the patient's daughter on reachable; Patient's sister patient does not have a healthcare proxy form but has signed MOLST form in January 2021 indicating full resuscitation if needed. ER course: Per ER team patient on presentation noted to be drowsy lethargic; and has right-sided gaze-given Ativan with improvement in his case. Concern for seizures; patient was given IV Keppra. Per ER team in no obvious signs of infection noticed; UA was negative, CT head, CT chest abdomen pelvis showed no acute findings; labs essentially benign; noted mild lactic acidosis. [facility] Medical History (Updated 03/31/21 @ 21:41 by Sha Coronado MD) Diabetes EtOH dependence History of alcohol abuse HTN (hypertension) MDD (major depressive disorder) Wernicke encephalopathy Pertinent family history: Reviewed Social History Household Members: None Housing: Detention Unable to assess alcohol history related to: Unable to respond Alcohol intake: never Patient Tobacco Use Status: Tobacco use Unknown Advance Directives: Yes Advance Directives on File: Yes Advance Directives Date on File: 02/09/21 Current occupational status: retired Meds Allergies Allergy/AdvReac Type Severity Reaction Status Date / Time No Known Allergies Allergy Verified 02/09/21 09:54 Active Medications: Current Medications Heparin Sodium (Porcine) (Heparin Sodium,Porcine 5,000 Unit/Ml Vial) 5,000 unit SUBCUT Q12H [facility] Levetiracetam (Keppra) 1,000 mg in 100 mls @ 400 mls/hr IV Q12H [facility] Dextrose/Sodium Chloride (D51/2ns) 1,000 mls @ 75 mls/hr IVCONT .[id number] [facility] Thiamine HCl 100 mg/ Sodium (Chloride) 101 mls @ 202 mls/hr IV DAILY [facility] Latanoprost (Latanoprost 0.005 % Ophth Patricia 2.5 Ml Drops) 1 drop EYE-BOTH BEDTIME [facility] Melatonin (Melatonin 3 Mg Tablet) 6 mg PO BEDTIME PRN PRN Reason: Insomnia Pharmacy Consult (Consult Rx Perform Med Rec) 1 each MISCELLANE ONCE PRN PRN Reason: Consult order Pharmacy Consult (Consult Rx Perform Med Rec) 1 each MISCELLANE ONCE PRN PRN Reason: Consult order Senna (Sennosides 8.6 Mg Tablet) 17.2 mg PO BEDTIME PRN PRN Reason: Constipation Sodium Chloride (0.9 % Sodium Chloride Flush 3 Ml Syringe) 3 ml IVFLUSH QSHIFT [facility] Home Medications Medication Instructions Recorded Confirmed Last Taken Type acetaminophen 325 mg tablet 650 mg PO Q4H PRN 02/09/21 03/31/21 Unknown History (Tylenol) amlodipine 5 mg tablet 1 tab PO DAILY 02/09/21 03/31/21 02/08/21 History aspirin 81 mg chewable tablet 81 mg PO DAILY 02/09/21 03/31/21 02/08/21 History atorvastatin 80 mg tablet 1 tab PO DAILY 02/09/21 03/31/21 02/08/21 History citalopram 20 mg tablet 1 tab PO DAILY 02/09/21 03/31/21 02/08/21 History donepezil 5 mg tablet 1 tab PO BEDTIME 02/09/21 03/31/21 02/08/21 History folic acid 1 mg tablet 1 mg PO DAILY 02/09/21 03/31/21 Unknown History latanoprost 0.005 % eye drops 1 drp OPHTHALMIC (EYE) BEDTIME 07/03/31/21 02/08/21 History magnesium hydroxide 400 mg/5 mL 30 ml PO BEDTIME PRN 02/09/21 03/31/21 Unknown History oral suspension (Milk of Magnesia) melatonin 3 mg tablet 6 mg PO BEDTIME PRN 02/09/21 03/31/21 Unknown History multivitamin 1 tab PO DAILY 02/09/21 03/31/21 Unknown History naltrexone 50 mg tablet 1 tab PO QAM 02/09/21 03/31/21 Unknown History dextrose 40 % oral gel (Glucose 20 g PO Q15M PRN 03/31/21 03/31/21 Unknown History Gel) Physical Exam Vital Signs and Narrative: Vital Signs: Last Vital Signs Temp 98.4 F 03/31/21 15:28 Pulse 88 03/31/21 18:28 Resp 16 03/31/21 15:28 BP 126/75 03/31/21 18:28 Pulse Ox 97 03/31/21 18:28 Body Mass Index 28.3 Gen: Appears be in no acute distress HEENT: NCAT, Moist mucosa. Pupils are equal in size. Pulmonary: Vesicular breath sounds, fair air entry CVS: Normal S1-S2 Abdomen: BS+, Soft, Nontender Extremities: Warm well perfused Neuro: Drowsy and lethargic; opens his eyes for loud verbal stimuli but goes back to sleep immediately; patient did receive Ativan in the ER. Protecting airways. Moves all extremities equally. Results Labs CBC and Chem 7: 03/31/21 17:38 03/31/21 17:38 Labs: Laboratory Results - last 24 hr 03/31/21 03/31/21 03/31/21 16:32 16:32 16:32 MCV MCH MCHC RDW Plt Count MPV Immature Gran % (Auto) Neut % (Auto) Lymph % (Auto) [place] % (Auto) Eos % (Auto) Baso % (Auto) Lymph # (Auto) [place] # (Auto) Eos # (Auto) Baso # (Auto) Abs Immat Gran (auto) Absolute Neuts (auto) Absolute Nucleated RBC Nucleated RBC % (auto) Smear Tech's Comments PT INR APTT VBG pH VBG pCO2 VBG pO2 VBG HCO3 VBG O2 Saturation VBG Base Excess Anion Gap Estim Creat Clear Calc Estimated GFR Random Glucose Lactic Acid 3.0 H* Calcium Magnesium Total Bilirubin Direct Bilirubin AST ALT Alkaline Phosphatase Ammonia 43 Troponin I High Sens Total Protein Albumin Lipase Urine Color Urine Appearance Urine pH Ur Specific [place] Urine Protein Urine Glucose (UA) Urine Ketones Urine Blood Urine Nitrite Ur Leukocyte Esterase Urine RBC Urine WBC Ur Squamous Epith Cells Ur Renal Epithelial Cell Amorphous Sediment Urine Bacteria Hyaline Casts Granular Casts Urine Opiates Screen Urine Fentanyl Screen Ur Barbiturates Screen Ur Phencyclidine Scrn Ur Amphetamines Screen U Benzodiazepines Scrn Urine Cocaine Screen U Marijuana (THC) Screen Ethyl Alcohol < 10 COVID-19 (KATIE) COVID-19 Clin Com 03/31/21 03/31/21 03/31/21 16:32 16:32 16:55 MCV MCH MCHC RDW Plt Count MPV Immature Gran % (Auto) Neut % (Auto) Lymph % (Auto) [place] % (Auto) Eos % (Auto) Baso % (Auto) Lymph # (Auto) [place] # (Auto) Eos # (Auto) Baso # (Auto) Abs Immat Gran (auto) Absolute Neuts (auto) Absolute Nucleated RBC Nucleated RBC % (auto) Smear Tech's Comments PT INR APTT VBG pH VBG pCO2 VBG pO2 VBG HCO3 VBG O2 Saturation VBG Base Excess Anion Gap Estim Creat Clear Calc Estimated GFR Random Glucose Lactic Acid Calcium Magnesium Total Bilirubin Direct Bilirubin AST ALT Alkaline Phosphatase Ammonia Troponin I High Sens Total Protein Albumin Lipase Urine Color YELLOW Urine Appearance CLEAR Urine pH 5.5 Ur Specific Bricelyn >= 1.030 H Urine Protein 1+ H Urine Glucose (UA) NEG Urine Ketones 40 Urine Blood 1+ H Urine Nitrite NEG Ur Leukocyte Esterase NEG Urine RBC 5-9 H Urine WBC 0-2 Ur Squamous Epith Cells TRACE Ur Renal Epithelial Cell TRACE Amorphous Sediment TRACE Urine Bacteria NONE Hyaline Casts 0-2 Granular Casts 0-2 Urine Opiates Screen Not Detected Urine Fentanyl Screen POSITIVE H Ur Barbiturates Screen Not Detected Ur Phencyclidine Scrn Not Detected Ur Amphetamines Screen Not Detected U Benzodiazepines Scrn Not Detected Urine Cocaine Screen Not Detected U Marijuana (THC) Screen Not Detected Ethyl Alcohol COVID-19 (KATIE) Negative COVID-19 Clin Com See Note 03/31/21 03/31/21 03/31/21 17:38 17:38 17:38 MCV 91.2 MCH 31.6 MCHC 34.7 RDW 13.0 Plt Count 133 L D MPV 10.2 Immature Gran % (Auto) 0.5 H Neut % (Auto) 91.9 H Lymph % (Auto) 5.3 L [place] % (Auto) 2.0 Eos % (Auto) 0.2 Baso % (Auto) 0.1 Lymph # (Auto) 0.6 L [place] # (Auto) 0.2 Eos # (Auto) 0.0 Baso # (Auto) 0.0 Abs Immat Gran (auto) 0.05 H Absolute Neuts (auto) 9.6 H Absolute Nucleated RBC 0.000 Nucleated RBC % (auto) 0.0 Smear Tech's Comments VERIFIED PT 11.9 INR 1.0 APTT 25.0 VBG pH VBG pCO2 VBG pO2 VBG HCO3 VBG O2 Saturation VBG Base Excess Anion Gap 16 Estim Creat Clear Calc 66.9 Estimated GFR > 60 Random Glucose 143 H D Lactic Acid Calcium 9.1 Magnesium Total Bilirubin Direct Bilirubin AST ALT Alkaline Phosphatase Ammonia Troponin I High Sens Total Protein Albumin Lipase Urine Color Urine Appearance Urine pH Ur Specific B[place]elyn Urine Protein Urine Glucose (UA) Urine Ketones Urine Blood Urine Nitrite Ur Leukocyte Esterase Urine RBC Urine WBC Ur Squamous Epith Cells Ur Renal Epithelial Cell Amorphous Sediment Urine Bacteria Hyaline Casts Granular Casts Urine Opiates Screen Urine Fentanyl Screen Ur Barbiturates Screen Ur Phencyclidine Scrn Ur Amphetamines Screen U Benzodiazepines Scrn Urine Cocaine Screen U Marijuana (THC) Screen Ethyl Alcohol COVID-19 (KATIE) COVID-19 Clin Com 03/31/21 03/31/21 03/31/21 17:38 17:38 17:45 MCV MCH MCHC RDW Plt Count MPV Immature Gran % (Auto) Neut % (Auto) Lymph % (Auto) [place] % (Auto) Eos % (Auto) Baso % (Auto) Lymph # (Auto) [place] # (Auto) Eos # (Auto) Baso # (Auto) Abs Immat Gran (auto) Absolute Neuts (auto) Absolute Nucleated RBC Nucleated RBC % (auto) Smear Tech's Comments PT INR APTT VBG pH 7.38 VBG pCO2 39 VBG pO2 31 VBG HCO3 23 VBG O2 Saturation 43.0 VBG Base Excess -1.0 Anion Gap Estim Creat Clear Calc Estimated GFR Random Glucose Lactic Acid Calcium Magnesium 2.1 Total Bilirubin 2.7 H Direct Bilirubin 0.9 H AST 31 D ALT 36 Alkaline Phosphatase 120 H Ammonia Troponin I High Sens 22.6 Total Protein 7.1 Albumin 4.5 Lipase 15 Urine Color Urine Appearance Urine pH Ur Specific [place]elyn Urine Protein Urine Glucose (UA) Urine Ketones Urine Blood Urine Nitrite Ur Leukocyte Esterase Urine RBC Urine WBC Ur Squamous Epith Cells Ur Renal Epithelial Cell Amorphous Sediment Urine Bacteria Hyaline Casts Granular Casts Urine Opiates Screen Urine Fentanyl Screen Ur Barbiturates Screen Ur Phencyclidine Scrn Ur Amphetamines Screen U Benzodiazepines Scrn Urine Cocaine Screen U Marijuana (THC) Screen Ethyl Alcohol COVID-19 (KATIE) COVID-19 Clin Com Imaging Radiologist's Impressions: Impressions Abdomen/Pelvis CT 03/31/21 15:27 IMPRESSION: 1. No acute process of the chest, abdomen, or pelvis identified. 2. Mild fecal loading of the rectosigmoid colon. 3. Enlarged prostate with coarse calcifications within its body. 4. Stable loss of height at the superior endplate of L1 and L4. Chest CT 03/31/21 15:27 IMPRESSION: 1. No acute process of the chest, abdomen, or pelvis identified. 2. Mild fecal loading of the rectosigmoid colon. 3. Enlarged prostate with coarse calcifications within its body. 4. Stable loss of height at the superior endplate of L1 and L4. Head CT 03/31/21 15:27 IMPRESSION: 1. No acute intracranial pathology. 2. Chronic white matter small vessel ischemic changes. 3. Cerebral atrophy with ventricular prominence. Assessment and Plan (1) Altered mental status: Qualifiers: Altered mental status type: unspecified Qualified Code(s): R41.82 - Altered mental status, unspecified Status: Acute (2) Wernicke encephalopathy: Status: Acute (3) Diabetes: Status: Acute 75-year-old male with a past medical history of alcohol abuse, Wernicke's encephalopathy, dementia, group home resident presented to the hospital with a chief complaint altered mental status. Altered mental status: No obvious signs of infection. Patient does have history of an acute encephalopathy/dementia. Question seizure as likely cause of the patient's altered mental status. S ER reported that his right-sided gaze improved with Ativan. Will continue Keppra for now. Neurology consult CT Head showed no acute findings NPO Seizure precautions, aspiration precautions Patient is currently drowsy, protecting airways. Will continue to monitor on telemetry. History alcohol abuse/Wernicke's encephalopathy: Will continue time in. Will continue his home medications once the patient becomes more alert and awake and passes the dysphagia screen. DVT prophylaxis: Subcu heparin Code status: Full code- has MOLST form in the chart Patient does not have healthcare proxy forms; will defer to the a.m. team to follow up with case management further input. Quality Stroke Does the patient have a stroke diagnosis?: No VTE Prior VTE?: No VTE Risk Level:: Medical - moderate - high VTE Device Contraindication: N/A - Device Ordered VTE Drug Contraindication: Treatment Not Indicated
--- NOTE | 2021-03-31 22:44 | MHC.CM.PN ---
CM attempted to meet with admitted patient with bed assignment pending. Pt from [facility] with AMS. ?seizure. Pt has HX dementia, Wernicke encephalopathy, DM and ETOH abuse. Pt opens eyes to name, but is unable to engage in conversation. Pt does not have a HCP per Medical Record. Confirmed no HCP with sister, Millie Vargas ([phone]). Millie states pt refuses to complete a HCP or name anyone to make decisions for him. Millie tells CM that pt was willing to complete a Molst, as he wants all care and full resuscitation. Pt does have a MOLST on file from 12/12/20. Millie states either she or her brother's friend, Fide Cox ([phone]) and be contacted with updates, as they are in contact with each other. Millie tells CM that daughter, Renetta Ferraro ([phone]) is estranged from her father and has little to contact with him. Millie tells CM that she spoke with pt 2 days ago on the telephone and he carried on a normal conversation, so this AMS is a real change for him. IMM reviewed with Millie Madijakob on the telephone, copy left at bedside. Pt uses a walker and was only able to ambulate from bed to with walker. D/C plan is to return to [facility] Transportation by ambulance. CM to follow for d/c needs.
[2021-03-31 23:22] VITALS: BP 104/46; PULSE 63; RESP 18
[2021-04-01] VITALS (9 sets, daily range): BP systolic 98–146; BP diastolic 44–68; PULSE 44–57; RESP 12–20; TEMP 36.1–36.9; O2SAT 97–99
[2021-04-01] MEDS: Dextrose 5 % and 0.45 % NaCl 1,000 ML 75 ML IVCONT ×2 (01:45→20:02)
[2021-04-01] MEDS: levETIRAcetam in NaCl (iso-os) 1,000 MG/100 ML PIGGYBACK 400 MG IV ×2 (04:29→19:40)
[2021-04-01 07:08] LABS: MANUAL DIFF FLAG NO
[2021-04-01 07:15] LABS: Basophils Percent Auto 0.3 % (0-2); Eosinophils Percent Auto 0.3 % (0-4); Hematocrit 43.6 % (42-52); Hemoglobin 14.8 g/dl (14.0-18.0); Imm Gran Abs Auto 0.02 X10*3/uL (0.00-0.03); Imm Gran Pct Auto 0.2 % (0.0-0.4); Lymphocytes Absolute Auto 1.8 X10*3/uL (1.2-4.9); Mean Corpuscular HGB Conc 33.9 g/dl (31.0-36.0); Mean Corpuscular Hemoglobin 31.2 pg (27.0-33.0); Mean Corpuscular Volume 91.8 fL (80-98); Mean Platelet Volume 10.8 fL (9.4-12.4); Monocytes Absolute Auto 0.8 X10*3/uL (0.1-1.2); Monocytes Percent Auto 8.9 % (2-11); Neutrophils Absolute Auto 6.7 X10*3/uL (2.0-8.3); Neutrophils Percent Auto 71.3 % (45-73); Platelet Count 176 X10*3/uL (160-400); Red Blood Count 4.75 X10*6/uL (4.60-5.80); Red Cell Distribution Width 12.9 % (11.0-16.0); White Blood Count 9.5 X10*3/uL (4.8-10.8)
[2021-04-01 07:41] LABS: Anion Gap 10 (12-20); Blood Urea Nitrogen 7 mg/dL (9-16); Calcium 8.9 mg/dL (8.4-10.2); Carbon Dioxide 25 mmol/L (22-29); Chloride 105 mmol/L (96-108); Creatinine Clr Calc Pharmacy 66.1; Estimated Glomerular Filt Rate > 60; Glucose Random 97 mg/dL (60-115); Potassium 3.4 mmol/L (3.3-5.1); Sodium 137 mmol/L (135-145)
--- NOTE | 2021-04-01 08:15 | PC.NURSE ---
pt is npo and is to have swallow eval
[2021-04-01] MEDS: 0.9 % Sodium Chloride Flush 3 ML SYRINGE IVFLUSH (09:44)
[2021-04-01] MEDS: Heparin Sodium,Porcine 5,000 UNIT/ML VIAL 5000 UNIT SUBCUT ×2 (10:03→21:29)
[2021-04-01] MEDS: Thiamine HCL 100 MG in 0.9 % Sodium Chloride 100 ML 202 MG IV (10:04)
--- NOTE | 2021-04-01 12:01 | PC.NURSE ---
PT'S SISTER LORRIE ALEXANDRELEDA ([phone]) AND SHE WAS UPDATED ON PT STATUS.
--- NOTE | 2021-04-01 12:39 | HO.PM.IMPN ---
Subjective Subjective Date of Service: 04/01/21 Interval History: cc: AMS interval history: unable to obstain due to mental condition Review of Systems Review of Systems: Yes Unobtainable due to mental condition Physical Exam Vital Signs: Vital Signs: Last Vital Signs Temp 98.4 F 03/31/21 15:28 Pulse 50 04/01/21 11:33 Resp 16 04/01/21 10:00 BP 121/48 L 04/01/21 11:33 Pulse Ox 98 04/01/21 11:33 Body Mass Index 28.3 Appearance: Somnolent but awakes to voice, no acute distress.? Eyes: Pupils equal, round and reactive to light.? ? Neck: Normal inspection.? Neck supple.? CVS: Normal heart rate and rhythm.? Pulses normal.? Respiratory: No respiratory distress.? Breath sounds normal.? Abdomen: Soft and nontender. no grimace Skin: Skin warm and dry.? pale skin color.? Normal skin turgor.? Extremities: No lower extremity edema.? No calf ttp Neuro: moves all extremities to pain, does not speak, will squeeze hands when asked Objective Data Active Medications Heparin Sodium (Porcine) (Heparin Sodium,Porcine 5,000 Unit/Ml Vial) 5,000 unit SUBCUT Q12H [facility] Last Admin: 04/01/21 10:03 Dose: 5,000 unit Documented by: FIDEL Levetiracetam (Keppra) 1,000 mg in 100 mls @ 400 mls/hr IV Q12H [facility] Last Infusion: 04/01/21 05:04 Dose: 0 mls/hr Documented by: WESLEY Dextrose/Sodium Chloride (D51/2ns) 1,000 mls @ 75 mls/hr IVCONT .[id number] [facility] Last Admin: 04/01/21 01:45 Dose: 75 mls/hr Documented by: WESLEY Thiamine HCl 100 mg/ Sodium (Chloride) 101 mls @ 202 mls/hr IV DAILY [facility] Last Infusion: 04/01/21 10:53 Dose: 0 mls/hr Documented by: FIDEL Latanoprost (Latanoprost 0.005 % Ophth Patricia 2.5 Ml Drops) 1 drop EYE-BOTH BEDTIME [facility] Melatonin (Melatonin 3 Mg Tablet) 6 mg PO BEDTIME PRN PRN Reason: Insomnia Pharmacy Consult (Consult Rx Perform Med Rec) 1 each MISCELLANE ONCE PRN PRN Reason: Consult order Pharmacy Consult (Consult Rx Perform Med Rec) 1 each MISCELLANE ONCE PRN PRN Reason: Consult order Senna (Sennosides 8.6 Mg Tablet) 17.2 mg PO BEDTIME PRN PRN Reason: Constipation Sodium Chloride (0.9 % Sodium Chloride Flush 3 Ml Syringe) 3 ml IVFLUSH QSHIFT [facility] Last Admin: 04/01/21 09:44 Dose: 3 ml Documented by: CHRISTOPHER Labs CBC & Chem 7: 04/01/21 06:45 04/01/21 06:45 Labs: Laboratory Results - last 24 hr 03/31/21 03/31/21 03/31/21 16:32 16:32 16:32 MCV MCH MCHC RDW Plt Count MPV Immature Gran % (Auto) Neut % (Auto) Lymph % (Auto) [place] % (Auto) Eos % (Auto) Baso % (Auto) Lymph # (Auto) [place] # (Auto) Eos # (Auto) Baso # (Auto) Abs Immat Gran (auto) Absolute Neuts (auto) Absolute Nucleated RBC Nucleated RBC % (auto) Smear Tech's Comments PT INR APTT VBG pH VBG pCO2 VBG pO2 VBG HCO3 VBG O2 Saturation VBG Base Excess Anion Gap Estim Creat Clear Calc Estimated GFR Random Glucose Lactic Acid 3.0 H* Lactic Acid Fup @ 2Hr Calcium Magnesium Total Bilirubin Direct Bilirubin AST ALT Alkaline Phosphatase Ammonia 43 Troponin I High Sens Total Protein Albumin Lipase Urine Color Urine Appearance Urine pH Ur Specific [place] Urine Protein Urine Glucose (UA) Urine Ketones Urine Blood Urine Nitrite Ur Leukocyte Esterase Urine RBC Urine WBC Ur Squamous Epith Cells Ur Renal Epithelial Cell Amorphous Sediment Urine Bacteria Hyaline Casts Granular Casts Urine Opiates Screen Urine Fentanyl Screen Ur Barbiturates Screen Ur Phencyclidine Scrn Ur Amphetamines Screen U Benzodiazepines Scrn Urine Cocaine Screen U Marijuana (THC) Screen Ethyl Alcohol < 10 COVID-19 (KATIE) COVID-19 Clin Com 03/31/21 03/31/21 03/31/21 16:32 16:32 16:55 MCV MCH MCHC RDW Plt Count MPV Immature Gran % (Auto) Neut % (Auto) Lymph % (Auto) [place] % (Auto) Eos % (Auto) Baso % (Auto) Lymph # (Auto) [place] # (Auto) Eos # (Auto) Baso # (Auto) Abs Immat Gran (auto) Absolute Neuts (auto) Absolute Nucleated RBC Nucleated RBC % (auto) Smear Tech's Comments PT INR APTT VBG pH VBG pCO2 VBG pO2 VBG HCO3 VBG O2 Saturation VBG Base Excess Anion Gap Estim Creat Clear Calc Estimated GFR Random Glucose Lactic Acid Lactic Acid Fup @ 2Hr Calcium Magnesium Total Bilirubin Direct Bilirubin AST ALT Alkaline Phosphatase Ammonia Troponin I High Sens Total Protein Albumin Lipase Urine Color YELLOW Urine Appearance CLEAR Urine pH 5.5 Ur Specific [place] >= 1.030 H Urine Protein 1+ H Urine Glucose (UA) NEG Urine Ketones 40 Urine Blood 1+ H Urine Nitrite NEG Ur Leukocyte Esterase NEG Urine RBC 5-9 H Urine WBC 0-2 Ur Squamous Epith Cells TRACE Ur Renal Epithelial Cell TRACE Amorphous Sediment TRACE Urine Bacteria NONE Hyaline Casts 0-2 Granular Casts 0-2 Urine Opiates Screen Not Detected Urine Fentanyl Screen POSITIVE H Ur Barbiturates Screen Not Detected Ur Phencyclidine Scrn Not Detected Ur Amphetamines Screen Not Detected U Benzodiazepines Scrn Not Detected Urine Cocaine Screen Not Detected U Marijuana (THC) Screen Not Detected Ethyl Alcohol COVID-19 (KATIE) Negative COVID-19 Clin Com See Note 03/31/21 03/31/21 03/31/21 17:38 17:38 17:38 MCV 91.2 MCH 31.6 MCHC 34.7 RDW 13.0 Plt Count 133 L D MPV 10.2 Immature Gran % (Auto) 0.5 H Neut % (Auto) 91.9 H Lymph % (Auto) 5.3 L [place] % (Auto) 2.0 Eos % (Auto) 0.2 Baso % (Auto) 0.1 Lymph # (Auto) 0.6 L [place] # (Auto) 0.2 Eos # (Auto) 0.0 Baso # (Auto) 0.0 Abs Immat Gran (auto) 0.05 H Absolute Neuts (auto) 9.6 H Absolute Nucleated RBC 0.000 Nucleated RBC % (auto) 0.0 Smear Tech's Comments VERIFIED PT 11.9 INR 1.0 APTT 25.0 VBG pH VBG pCO2 VBG pO2 VBG HCO3 VBG O2 Saturation VBG Base Excess Anion Gap 16 Estim Creat Clear Calc 66.9 Estimated GFR > 60 Random Glucose 143 H D Lactic Acid Lactic Acid Fup @ 2Hr Calcium 9.1 Magnesium Total Bilirubin Direct Bilirubin AST ALT Alkaline Phosphatase Ammonia Troponin I High Sens Total Protein Albumin Lipase Urine Color Urine Appearance Urine pH Ur Specific [place] Urine Protein Urine Glucose (UA) Urine Ketones Urine Blood Urine Nitrite Ur Leukocyte Esterase Urine RBC Urine WBC Ur Squamous Epith Cells Ur Renal Epithelial Cell Amorphous Sediment Urine Bacteria Hyaline Casts Granular Casts Urine Opiates Screen Urine Fentanyl Screen Ur Barbiturates Screen Ur Phencyclidine Scrn Ur Amphetamines Screen U Benzodiazepines Scrn Urine Cocaine Screen U Marijuana (THC) Screen Ethyl Alcohol COVID-19 (KATIE) COVID-19 Clin Com 03/31/21 03/31/21 03/31/21 17:38 17:38 17:45 MCV MCH MCHC RDW Plt Count MPV Immature Gran % (Auto) Neut % (Auto) Lymph % (Auto) [place] % (Auto) Eos % (Auto) Baso % (Auto) Lymph # (Auto) [place] # (Auto) Eos # (Auto) Baso # (Auto) Abs Immat Gran (auto) Absolute Neuts (auto) Absolute Nucleated RBC Nucleated RBC % (auto) Smear Tech's Comments PT INR APTT VBG pH 7.38 VBG pCO2 39 VBG pO2 31 VBG HCO3 23 VBG O2 Saturation 43.0 VBG Base Excess -1.0 Anion Gap Estim Creat Clear Calc Estimated GFR Random Glucose Lactic Acid Lactic Acid Fup @ 2Hr Calcium Magnesium 2.1 Total Bilirubin 2.7 H Direct Bilirubin 0.9 H AST 31 D ALT 36 Alkaline Phosphatase 120 H Ammonia Troponin I High Sens 22.6 Total Protein 7.1 Albumin 4.5 Lipase 15 Urine Color Urine Appearance Urine pH Ur Specific [place] Urine Protein Urine Glucose (UA) Urine Ketones Urine Blood Urine Nitrite Ur Leukocyte Esterase Urine RBC Urine WBC Ur Squamous Epith Cells Ur Renal Epithelial Cell Amorphous Sediment Urine Bacteria Hyaline Casts Granular Casts Urine Opiates Screen Urine Fentanyl Screen Ur Barbiturates Screen Ur Phencyclidine Scrn Ur Amphetamines Screen U Benzodiazepines Scrn Urine Cocaine Screen U Marijuana (THC) Screen Ethyl Alcohol COVID-19 (KATIE) COVID-19 Clin Com 04/01/21 04/01/21 04/01/21 00:42 06:45 06:45 MCV 91.8 MCH 31.2 MCHC 33.9 RDW 12.9 Plt Count 176 D MPV 10.8 Immature Gran % (Auto) 0.2 Neut % (Auto) 71.3 Lymph % (Auto) 19.0 L [place] % (Auto) 8.9 Eos % (Auto) 0.3 Baso % (Auto) 0.3 Lymph # (Auto) 1.8 [place] # (Auto) 0.8 Eos # (Auto) 0.0 Baso # (Auto) 0.0 Abs Immat Gran (auto) 0.02 Absolute Neuts (auto) 6.7 Absolute Nucleated RBC 0.000 Nucleated RBC % (auto) 0.0 Smear Tech's Comments PT INR APTT VBG pH VBG pCO2 VBG pO2 VBG HCO3 VBG O2 Saturation VBG Base Excess Anion Gap 10 L Estim Creat Clear Calc 66.1 Estimated GFR > 60 Random Glucose 97 Lactic Acid Lactic Acid Fup @ 2Hr 1.0 Calcium 8.9 Magnesium Total Bilirubin Direct Bilirubin AST ALT Alkaline Phosphatase Ammonia Troponin I High Sens Total Protein Albumin Lipase Urine Color Urine Appearance Urine pH Ur Specific [place] Urine Protein Urine Glucose (UA) Urine Ketones Urine Blood Urine Nitrite Ur Leukocyte Esterase Urine RBC Urine WBC Ur Squamous Epith Cells Ur Renal Epithelial Cell Amorphous Sediment Urine Bacteria Hyaline Casts Granular Casts Urine Opiates Screen Urine Fentanyl Screen Ur Barbiturates Screen Ur Phencyclidine Scrn Ur Amphetamines Screen U Benzodiazepines Scrn Urine Cocaine Screen U Marijuana (THC) Screen Ethyl Alcohol COVID-19 (KATIE) COVID-19 Clin Com Assessment and Plan (1) Wernicke encephalopathy: Status: Acute (2) Altered mental status: Status: Acute Assessment and Plan: 75-year-old male with a past medical history of alcohol abuse, Wernicke's encephalopathy, dementia, [facility] resident presented to the hospital with a chief complaint altered mental status. Altered mental status reccurent wernickes encephalopathy vs seizures conitnue keppra, thiamine follow up neuro dysphagia AEROSPACE STRESS ENGINEER eval, npo for now, maintance fluids, monitor electorylytes Quality Stroke Does the patient have a stroke diagnosis?: No VTE Prior VTE?: No VTE Risk Level:: Medical - moderate - high VTE Device Contraindication: Treatment Not Indicated VTE Drug Contraindication: N/A - Med Ordered
--- NOTE | 2021-04-01 18:56 | PM.NEUROCN ---
History of Present Illness Data of Consult Service Date: 04/01/21 Primary Care Provider: Unknown Physician HPI Reason for consult: Altered mental status. Dementia. Wernicke's encephalopathy This is a 75-year-old man with a history of chronic alcohol abuse who was recently admitted on 02/10/2021 to [facility] and had a complete neurological workup including CT scan MRI lumbar puncture and EEG and was discharged on IV thiamine to a halfway. He had been doing well no witnessed seizures. He was readmitted after off the halfway said that they noticed change in his mental status. At this time the patient is alert pleasant and says that he feels fine but cannot give any useful information. He is unaware where he is knows his name. He did recognize me as a doctor. He does not respond with appropriate answers. Review of Systems Review of Systems: ROS unable to be obtained due to altered mental status Yes Unobtainable due to mental condition PMFSH Past Medical History Medical History (Updated 04/01/21 @ 18:59 by Fanta Price MD) Diabetes EtOH dependence History of alcohol abuse HTN (hypertension) MDD (major depressive disorder) Wernicke encephalopathy Family History Pertinent family history: Reviewed Social History Social History Household Members: None Housing: Assisted Living Facility Unable to assess alcohol history related to: Unable to respond Alcohol intake: never Patient Tobacco Use Status: Tobacco use Unknown Advance Directives Date on File: 02/09/21 Current occupational status: retired Meds Allergies Allergy/AdvReac Type Severity Reaction Status Date / Time No Known Allergies Allergy Verified 02/09/21 09:54 Active Medications: Current Medications Heparin Sodium (Porcine) (Heparin Sodium,Porcine 5,000 Unit/Ml Vial) 5,000 unit SUBCUT Q12H [facility] Last Admin: 04/01/21 10:03 Dose: 5,000 unit Documented by: Levetiracetam (Keppra) 1,000 mg in 100 mls @ 400 mls/hr IV Q12H [facility] Last Infusion: 04/01/21 05:04 Dose: Infused Documented by: Dextrose/Sodium Chloride (D51/2ns) 1,000 mls @ 75 mls/hr IVCONT .[id number] [facility] Last Admin: 04/01/21 18:34 Dose: Not Given Documented by: Thiamine HCl 100 mg/ Sodium (Chloride) 101 mls @ 202 mls/hr IV DAILY [facility] Last Infusion: 04/01/21 10:53 Dose: Infused Documented by: Latanoprost (Latanoprost 0.005 % Ophth Patricia 2.5 Ml Drops) 1 drop EYE-BOTH BEDTIME [facility] Melatonin (Melatonin 3 Mg Tablet) 6 mg PO BEDTIME PRN PRN Reason: Insomnia Pharmacy Consult (Consult Rx Perform Med Rec) 1 each MISCELLANE ONCE PRN PRN Reason: Consult order Pharmacy Consult (Consult Rx Perform Med Rec) 1 each MISCELLANE ONCE PRN PRN Reason: Consult order Senna (Sennosides 8.6 Mg Tablet) 17.2 mg PO BEDTIME PRN PRN Reason: Constipation Sodium Chloride (0.9 % Sodium Chloride Flush 3 Ml Syringe) 3 ml IVFLUSH QSHIFT [facility] Last Admin: 04/01/21 18:34 Dose: Not Given Documented by: Home Medications Medication Instructions Recorded Confirmed Last Taken Type acetaminophen 325 mg tablet 650 mg PO Q4H PRN 02/09/21 03/31/21 Unknown History (Tylenol) amlodipine 5 mg tablet 1 tab PO DAILY 02/09/21 03/31/21 02/08/21 History aspirin 81 mg chewable tablet 81 mg PO DAILY 02/09/21 03/31/21 02/08/21 History atorvastatin 80 mg tablet 1 tab PO DAILY 02/09/21 03/31/21 02/08/21 History citalopram 20 mg tablet 1 tab PO DAILY 02/09/21 03/31/21 02/08/21 History donepezil 5 mg tablet 1 tab PO BEDTIME 02/09/21 03/31/21 02/08/21 History folic acid 1 mg tablet 1 mg PO DAILY 02/09/21 03/31/21 Unknown History latanoprost 0.005 % eye drops 1 drp OPHTHALMIC (EYE) BEDTIME 02/09/21 03/31/21 02/08/21 History magnesium hydroxide 400 mg/5 mL 30 ml PO BEDTIME PRN 02/09/21 03/31/21 Unknown History oral suspension (Milk of Magnesia) melatonin 3 mg tablet 6 mg PO BEDTIME PRN 02/09/21 03/31/21 Unknown History multivitamin 1 tab PO DAILY 02/09/21 03/31/21 Unknown History naltrexone 50 mg tablet 1 tab PO QAM 02/09/21 03/31/21 Unknown History dextrose 40 % oral gel (Glucose 20 g PO Q15M PRN 03/31/21 03/31/21 Unknown History Gel) Physical Exam Vital Signs: Vital Signs: Last Vital Signs Temp 96.9 F 04/01/21 16:00 Pulse 52 04/01/21 16:00 Resp 20 04/01/21 16:00 BP 131/63 04/01/21 16:00 Pulse Ox 97 04/01/21 16:00 Body Mass Index 28.3 Neuro: Other: He is alert pleasant and cooperative but does not answer questions appropriately. He talks spontaneously and appears quite happy and says that he feels fine and is doing great. When asked any factual questions he cannot respond to them. Neurological examination is nonfocal extraocular movements are full neck is supple. No lateralized weakness or numbness plantar responses flexor. Results Labs CBC & Chem 7: 04/01/21 06:45 04/01/21 06:45 Labs: Short CBC 04/01/21 Range/Units 06:45 WBC 9.5 (4.8-10.8) X10*3/uL Hgb 14.8 (14.0-18.0) g/dl Hct 43.6 (42-52) % Plt Count 176 D (160-400) X10*3/uL BMP 04/01/21 06:45 Sodium 137 Potassium 3.4 Chloride 105 Carbon Dioxide 25 BUN 7 L Creatinine 0.80 Calcium 8.9 Microbiology Microbiology Results: Microbiology 03/31/21 16:32 Blood - Venous Blood Culture - Preliminary No growth after 24 hours. Assessment and Plan (1) Wernicke encephalopathy: Status: Acute Continue thiamine 100 mg orally daily. Check thiamine levels (2) Altered mental status: Qualifiers: Altered mental status type: unspecified Qualified Code(s): R41.82 - Altered mental status, unspecified Status: Acute Rule out other metabolic infectious etiologies for his altered mental status. (3) Dementia, alcoholic: Status: Acute May start donepezil 5 mg once a day. 75-year-old male with a past medical history of alcohol abuse, Wernicke's encephalopathy, dementia, [facility] resident presented to the hospital with a chief complaint altered mental status. Altered mental status reccurent wernickes encephalopathy vs seizures conitnue keppra, thiamine follow up neuro dysphagia SUSTAINABLE PRODUCTS MARKETING MANAGER eval, npo for now, maintance fluids, monitor electorylytes Procedures Date of Service Date of Service: 04/01/21
[2021-04-01] MEDS: Latanoprost 0.005 % Ophth Sol 2.5 ML DROPS 1 DROP EYE-BOTH (22:32)
[2021-04-02 03:58] VITALS: BP 140/65; PULSE 51; RESP 18; TEMP 37; O2SAT 99
[2021-04-02] MEDS: levETIRAcetam in NaCl (iso-os) 1,000 MG/100 ML PIGGYBACK 400 MG IV (04:41)
[2021-04-02 06:58] LABS: Hematocrit 41.3 % (42-52); Hemoglobin 14.6 g/dl (14.0-18.0); Mean Corpuscular HGB Conc 35.4 g/dl (31.0-36.0); Mean Corpuscular Hemoglobin 31.9 pg (27.0-33.0); Mean Corpuscular Volume 90.4 fL (80-98); Mean Platelet Volume 10.3 fL (9.4-12.4); Platelet Count 173 X10*3/uL (160-400); Red Blood Count 4.57 X10*6/uL (4.60-5.80); Red Cell Distribution Width 12.8 % (11.0-16.0); White Blood Count 6.7 X10*3/uL (4.8-10.8)
[2021-04-02 07:17] VITALS: BP 152/67; PULSE 50; RESP 18; TEMP 36.3; O2SAT 98
[2021-04-02 07:27] LABS: Anion Gap 11 (12-20); Blood Urea Nitrogen 6 mg/dL (9-16); Calcium 8.6 mg/dL (8.4-10.2); Carbon Dioxide 26 mmol/L (22-29); Chloride 106 mmol/L (96-108); Creatinine Clr Calc Pharmacy 78.9; Estimated Glomerular Filt Rate > 60; Glucose Fasting 95 mg/dL (60-99); Potassium 3.5 mmol/L (3.3-5.1); Sodium 139 mmol/L (135-145)
[2021-04-02] MEDS: Thiamine HCL 100 MG in 0.9 % Sodium Chloride 100 ML 202 MG IV (10:01)
[2021-04-02] MEDS: Heparin Sodium,Porcine 5,000 UNIT/ML VIAL 5000 UNIT SUBCUT ×2 (10:14→21:47)
[2021-04-02] MEDS: Dextrose 5 % and 0.45 % NaCl 1,000 ML 75 ML IVCONT (10:16)
--- NOTE | 2021-04-02 10:22 | P.PNIM_ITS ---
Subjective Subjective Date of Service: 04/02/21 Interval History: cc: ams interval: much more alert today, no complaints, Cardiovascular Cardiovascular: Reports no additional cardiovascular complaints Respiratory Respiratory: Reports no additional respiratory complaints Physical Exam Vital Signs: Vital Signs: Last Vital Signs Temp 97.3 F 04/02/21 07:17 Pulse 50 04/02/21 07:17 Resp 18 04/02/21 07:17 BP 152/67 H 04/02/21 07:17 Pulse Ox 98 04/02/21 07:17 Body Mass Index 28.3 Appearance:now awake, no acute distress.? Eyes: Pupils equal, round and reactive to light.? ? Neck: Normal inspection.? Neck supple.? CVS: Normal heart rate and rhythm.? Pulses normal.? Respiratory: No respiratory distress.? Breath sounds normal.? Abdomen: Soft and nontender. no grimace Skin: Skin warm and dry.? pale skin color.? Normal skin turgor.? Extremities: No lower extremity edema.? No calf ttp Neuro: moves all extremities, now talking, oriented to person and time but thinks he is still in [facility]. Objective Data Active Medications Heparin Sodium (Porcine) (Heparin Sodium,Porcine 5,000 Unit/Ml Vial) 5,000 unit SUBCUT Q12H [facility] Last Admin: 04/02/21 10:14 Dose: 5,000 unit Documented by: MELINDA Dextrose/Sodium Chloride (D51/2ns) 1,000 mls @ 75 mls/hr IVCONT .[id number] [facility] Last Admin: 04/02/21 10:16 Dose: 75 mls/hr Documented by: MELINDA Thiamine HCl 100 mg/ Sodium (Chloride) 101 mls @ 202 mls/hr IV DAILY [facility] Last Admin: 04/02/21 10:01 Dose: 202 mls/hr Documented by: MELINDA Latanoprost (Latanoprost 0.005 % Ophth Patricia 2.5 Ml Drops) 1 drop EYE-BOTH BEDTIME [facility] Last Admin: 04/01/21 22:32 Dose: 1 drop Documented by: CHRISTELLE Melatonin (Melatonin 3 Mg Tablet) 6 mg PO BEDTIME PRN PRN Reason: Insomnia Pharmacy Consult (Consult Rx Perform Med Rec) 1 each MISCELLANE ONCE PRN PRN Reason: Consult order Pharmacy Consult (Consult Rx Perform Med Rec) 1 each MISCELLANE ONCE PRN PRN Reason: Consult order Senna (Sennosides 8.6 Mg Tablet) 17.2 mg PO BEDTIME PRN PRN Reason: Constipation Sodium Chloride (0.9 % Sodium Chloride Flush 3 Ml Syringe) 3 ml IVFLUSH QSHIFT [facility] Last Admin: 04/02/21 09:59 Dose: Not Given Documented by: MELINDA Non-Admin Reason: IV Running Labs CBC & Chem 7: 04/02/21 06:28 04/02/21 06:28 Labs: Laboratory Results - last 24 hr 04/02/21 04/02/21 06:28 06:28 MCV 90.4 MCH 31.9 MCHC 35.4 RDW 12.8 Plt Count 173 MPV 10.3 Absolute Nucleated RBC 0.000 Nucleated RBC % (auto) 0.0 Anion Gap 11 L Estim Creat Clear Calc 78.9 Estimated GFR > 60 Fasting Glucose 95 Calcium 8.6 Microbiology Microbiology Results: Microbiology 03/31/21 17:13 Blood Culture - Preliminary Blood - Venous No growth after 24 hours. 03/31/21 16:32 Blood Culture - Preliminary Blood - Venous No growth after 24 hours. Assessment and Plan (1) Wernicke encephalopathy: Status: Acute (2) Altered mental status: Status: Acute Assessment and Plan: 75-year-old male with a past medical history of alcohol abuse, Wernicke's encephalopathy, dementia, [facility] resident presented to the hospital with a chief complaint altered mental status. Altered mental status reccurent wernickes encephalopathy, less likely seizures conitnue thiamine d/w neuro stop keppra, monitor, EEG dysphagia RFID SYSTEMS ENGINEER eval, npo for now, mainatance fluids, monitor electorylytes Quality Stroke Does the patient have a stroke diagnosis?: No VTE Prior VTE?: No VTE Risk Level:: Medical - moderate - high VTE Device Contraindication: Treatment Not Indicated VTE Drug Contraindication: N/A - Med Ordered
[2021-04-02 11:20] VITALS: BP 131/63; PULSE 49; RESP 19; TEMP 36.4; O2SAT 99
[2021-04-02 15:26] VITALS: BP 141/63; PULSE 51; RESP 14; TEMP 36.5; O2SAT 99
[2021-04-02 20:00] VITALS: BP 161/70; RESP 18; TEMP 36.8; O2SAT 100
[2021-04-02] MEDS: Latanoprost 0.005 % Ophth Sol 2.5 ML DROPS 1 DROP EYE-BOTH (21:51)
[2021-04-02 23:04] VITALS: BP 161/70; PULSE 54; RESP 18; TEMP 36.9; O2SAT 98
[2021-04-03] MEDS: Dextrose 5 % and 0.45 % NaCl 1,000 ML 75 ML IVCONT (02:04)
[2021-04-03 02:56] VITALS: BP 142/63; PULSE 51; RESP 18; TEMP 37; O2SAT 99
[2021-04-03 06:47] LABS: Hematocrit 43.3 % (42-52); Hemoglobin 15.1 g/dl (14.0-18.0); Mean Corpuscular HGB Conc 34.9 g/dl (31.0-36.0); Mean Corpuscular Hemoglobin 31.4 pg (27.0-33.0); Mean Platelet Volume 10.5 fL (9.4-12.4); Platelet Count 189 X10*3/uL (160-400); Red Blood Count 4.81 X10*6/uL (4.60-5.80); Red Cell Distribution Width 12.6 % (11.0-16.0)
[2021-04-03 06:49] LABS: Anion Gap 12 (12-20); Blood Urea Nitrogen 5 mg/dL (9-16); Calcium 8.5 mg/dL (8.4-10.2); Carbon Dioxide 25 mmol/L (22-29); Chloride 104 mmol/L (96-108); Creatinine Clr Calc Pharmacy 82.6; Estimated Glomerular Filt Rate > 60; Glucose Fasting 90 mg/dL (60-99); Potassium 3.3 mmol/L (3.3-5.1); Sodium 138 mmol/L (135-145)
[2021-04-03 07:23] VITALS: BP 159/73; PULSE 64; RESP 20; TEMP 36.6; O2SAT 95
[2021-04-03] MEDS: Heparin Sodium,Porcine 5,000 UNIT/ML VIAL 5000 UNIT SUBCUT (10:39)
[2021-04-03] MEDS: Thiamine HCL 100 MG in 0.9 % Sodium Chloride 100 ML 202 MG IV (10:40)
[2021-04-03 10:54] VITALS: BP 150/71; PULSE 58; RESP 19; TEMP 36; O2SAT 99
[2021-04-03 11:43] LABS: Glucose, Whole Blood 123 mg/dL (60-115)
--- NOTE | 2021-04-03 12:48 | PM.DS ---
DS: Providers Provider Date of Service: 04/03/21 Date of admission: 03/31/21 21:21 Primary care physician: Unknown Physician Consults: 03/31/21 21:20 Consult to Neurology Routine Consulting Provider: [facility] Reason for consultation: ams; ?seizure Consult to Urology Routine Consulting Provider: Keshawn Cruz Reason for consultation: Enlarged prostate with calcifications; microscopic hematuria. DS: Diagnosis Discharge Diagnosis (1) Wernicke encephalopathy: Status: Acute (2) Altered mental status: Status: Acute DS: Summary Hospital Course Hospital Course: Patient was admitted for current episode of altered mental status. Initially this was thought to be seizure and was treated with Keppra, however, is about by Neurology who felt that seizure was unlikely. His Keppra was discontinued. Patient's mental status returned to baseline. He did have an EEG done which is pending and should be followed up. He was evaluated for dysphagia and recommendations were for NDD2 solids and nectar thick liquids. patient will be discharged back to shelter care. Time Spent with Patient Time attestation: Total time spent providing and/or coordinating discharge services: Discharge coordination time: Greater than 30 minutes Quality: Stroke Does the patient have a stroke diagnosis?: No Physical Exam Vital Signs: Vital Signs: Last Vital Signs Temp 96.8 F 04/03/21 10:54 Pulse 58 04/03/21 10:54 Resp 19 04/03/21 10:54 BP 150/71 H 04/03/21 10:54 Pulse Ox 99 04/03/21 10:54 Body Mass Index 28.3 General: AO X 3, no acute distress Resp: CTA bilateral, no accessory muscles used CVS: S1,S2,RRR GI: soft, non tender, non distended Neuro: motor grossly intact, alert Psych: appropriate affect, appropriate insight DS: Data Data Completed and Pending Completed studies during hospitalization [Text1]: Procedures Drainage of Spinal Canal, Percutaneous Approach, Diagnostic (02/09/21) Fluoroscopy of Spinal Cord (02/09/21) Labs on day of discharge: Laboratory Results - last 24 hr 04/03/21 04/03/21 04/03/21 05:49 05:49 11:40 WBC 7.0 RBC 4.81 Hgb 15.1 Hct 43.3 MCV 90.0 MCH 31.4 MCHC 34.9 RDW 12.6 Plt Count 189 MPV 10.5 Absolute Nucleated RBC 0.000 Nucleated RBC % (auto) 0.0 Sodium 138 Potassium 3.3 Chloride 104 Carbon Dioxide 25 Anion Gap 12 BUN 5 L Creatinine 0.64 Estim Creat Clear Calc 82.6 Estimated GFR > 60 POC Glucose 123 H Fasting Glucose 90 Calcium 8.5 Preliminary micro results at discharge 03/31/21 17:13 Blood Culture - Preliminary Blood - Venous No growth after 48 hours. 03/31/21 16:32 Blood Culture - Preliminary Blood - Venous No growth after 48 hours. Discharge Plan Discharge Patient Disposition: Xfer SNF Discharge Diagnosis: ams Referrals: Fanta Price MD [Physician] - 1 Week Physician,Unknown [Primary Care Provider] - 1 Week Discharge Medications: Continued multivitamin Tablet 1 tab PO DAILY RF: 0 latanoprost 0.005 % drops 1 drp ophthalmic (eye) BEDTIME RF: 0 atorvastatin 80 mg tablet 1 tab PO DAILY RF: 0 acetaminophen [Tylenol] 325 mg Tablet 650 mg PO Q4H PRN (Reason: PAIN OR TEMP >100F) RF: 0 donepezil 5 mg tablet 1 tab PO BEDTIME RF: 0 naltrexone 50 mg tablet 1 tab PO QAM RF: 0 melatonin 3 mg Tablet 6 mg PO BEDTIME PRN (Reason: Insomnia) RF: 0 amlodipine 5 mg tablet 1 tab PO DAILY RF: 0 citalopram 20 mg tablet 1 tab PO DAILY RF: 0 magnesium hydroxide [Milk of Magnesia] 400 mg/5 mL Suspension 30 ml PO BEDTIME PRN (Reason: Constipation) RF: 0 aspirin 81 mg Tablet,Chewable 81 mg PO DAILY RF: 0 folic acid 1 mg Tablet 1 mg PO DAILY RF: 0 thiamine HCl (vitamin B1) 100 mg tablet 100 mg PO DAILY Qty: 30 RF: 0 dextrose [Glucose Gel] 40 % Gel 20 g PO Q15M PRN (Reason: Hypoglycemia) RF: 0 Discharge Orders: Discharge Order (Routine); Ordered 04/03/21 Ordered By: Fredy Luciano Diet: advance to usual diet Activity on Discharge: As tolerated Stand Alone Forms: Patient Portal Discharge page Care Plan Goals: recovery Health Concerns: ams, dysphagia Plan of Treatment: NDD2 solids, nectar thick liquids, follow up eeg/neuro Assessment: see above
--- NOTE | 2021-04-03 13:10 | MHC.CM.PN ---
PT CLEARED TO DC BACK TO [facility] AT TODAY [facility]IA [facility] AT 1500 HOURS PENDING THE RESULTS OF HIS NEW COVID SWAB. PT DOES NOT HAVE A HCP. PT IS AWARE OF DC
[2021-04-03 13:26] LABS: COVID-19 Test Negative (Negative); IDNOW Serial# 9DD0AD1C
--- NOTE | 2021-04-03 13:38 | MHC.SL.SWA ---
Speech Pathologist Impression: Risk of Aspiration Oralpharyngeal Dysphagia Risk of Aspiration Due to: Neurological Condition Reduced Cognition Dysphasia Diet Status: Upgrade Liquid Consistency and Strategies for Safe Swallow: Liquid Intake Recommendation: [place] Thick Liquid Intake Strategies: Small Sips No Straws Solid Food Consistency: Dietary Recommendations: Grnd/Mech Altered (NDD2) Oral Medication Intake: Whole with Puree Compensatory Strategies and Precautions to be Taken for Safe Swallow: Sitting Upright (90 deg) No Straw Small Bites and Sips Alternate Liquids/Solids Rate of Ingestion Change Supervision While Eating and Drinking for Safe Swallow: Total Supervision (1:1) Swallowing Recommended Treatments: Compens. Strategy Educat. Recommendation for Speech: Inpatient Speech Therapy Comment: Coughing after drinking thin liquids. Limited dentition. Patient is recommended softer diet for ease of mastication. Patient tolerates nectar thick liquid with no overt s/s of aspiration. Recommend aspiration precautions and total supervision/ assistance with tray set up. MANAGER CUSTOMER SERVICE will continue to follow. Senior Military Analyst Clinican/Clinical Fellow: No Supervisory Statement: I have reviewed and agree with the student/clinical fellow's documentation: N/A Speech Language Pathologist: Tess Turpin M.A., CCC-MANAGER CUSTOMER SERVICE
--- NOTE | 2021-04-03 16:28 | PC.NURSE ---
IV AND TELE REMOVED. FAMILY UPDATED ON STATUS AND DISCHARGE. EMS GIVEN REPORT. OFF UNIT FOR D/C AT 1628.
== END 2021-04-03 16:28 | disposition skilled nursing facility (03) | DRG 641 ==
LOC: HO.ED 18:43 → HO.EDOVER 21:31 → HO.IMC 04-01 15:49
PROVIDERS: Admitting Provider Hospitalist; Emergency Provider Emergency Medicine; Visit Provider Internal Medicine
DX: E51.2 Wernicke's encephalopathy (principal); F10.27 Alcohol dependence with alcohol-induced persisting dementia; E11.9 Type 2 diabetes mellitus without complications; I10 Essential (primary) hypertension; Z20.822 Contact with and (suspected) exposure to COVID-19; Z79.82 Long term (current) use of aspirin; Z79.899 Other long term (current) drug therapy
CPT/HCPCS: 36415; 70450; 71250; 74176; 80048; 80076; 80307; 81001; 81003; 82077; 82140; 82803; 82947; 83605; 83690; 83735; 84484; 85025; 85027; 85610; 85730; 87040; 87635; 92610; 93005; 95816; 96361; 96374; 96375; 99285; J1953; J2060; J3411

== ENCOUNTER 2021-06-06 10:25 | Emergency (ER) | payer MEDICARE, MEDICAID, SELFPAY ==
[2021-06-06 10:45] VITALS: BP 133/62; PULSE 104; RESP 18; TEMP 36.8; O2SAT 99; BMI 26.9
--- NOTE | 2021-06-06 10:58 | ED.GENADULT ---
HPI - General Adult General Chief complaint: General Medical Stated complaint: SEIZURE Time Seen by Provider: 06/06/21 10:58 Source: other (RN) Mode of arrival: EMS Limitations: altered mental status History of Present Illness HPI narrative: patient with Wierneckes encephalopathy was recently taken off of Keppra and had 2 seizures today. EMS stated tonic clonic movements Onset (ago): minute(s) Severity: moderate Related Data Home Medications Medication Instructions Recorded Confirmed acetaminophen 325 mg tablet 650 mg PO Q4H PRN 02/09/21 03/31/21 (Tylenol) amlodipine 5 mg tablet 1 tab PO DAILY 02/09/21 03/31/21 aspirin 81 mg chewable tablet 81 mg PO DAILY 02/09/21 03/31/21 atorvastatin 80 mg tablet 1 tab PO DAILY 02/09/21 03/31/21 citalopram 20 mg tablet 1 tab PO DAILY 02/09/21 03/31/21 donepezil 5 mg tablet 1 tab PO BEDTIME 02/09/21 03/31/21 folic acid 1 mg tablet 1 mg PO DAILY 02/09/21 03/31/21 latanoprost 0.005 % eye drops 1 drp OPHTHALMIC (EYE) BEDTIME 02/09/21 03/31/21 magnesium hydroxide 400 mg/5 mL 30 ml PO BEDTIME PRN 02/09/21 03/31/21 oral suspension (Milk of Magnesia) melatonin 3 mg tablet 6 mg PO BEDTIME PRN 02/09/21 03/31/21 multivitamin 1 tab PO DAILY 02/09/21 03/31/21 naltrexone 50 mg tablet 1 tab PO QAM 02/09/21 03/31/21 dextrose 40 % oral gel (Glucose 20 g PO Q15M PRN 03/31/21 03/31/21 Gel) Previous Rx's Medication Instructions Recorded thiamine HCl (vitamin B1) 100 mg 100 mg PO DAILY #30 tab 02/13/21 tablet levetiracetam 500 mg tablet 500 mg PO BID #30 tab 06/06/21 (Keppra) Allergies Allergy/AdvReac Type Severity Reaction Status Date / Time No Known Allergies Allergy Verified 02/09/21 09:54 Review of Systems Review of Systems: Yes Unobtainable due to mental status PMFSH Past Medical History Medical History Diabetes EtOH dependence History of alcohol abuse HTN (hypertension) MDD (major depressive disorder) Wernicke encephalopathy Social History Social History Household Members: None Housing: Assisted Living Facility Unable to assess alcohol history related to: Unable to respond Alcohol intake: never Patient Tobacco Use Status: Tobacco use Unknown Advance Directives: Yes Advance Directives on File: Yes Advance Directives Date on File: 02/09/21 Current occupational status: retired Physical Exam Vital Signs: Vital Signs: Last Vital Signs Temp 98.2 F 06/06/21 10:45 Pulse 104 H 06/06/21 10:45 Resp 18 06/06/21 10:45 BP 133/62 06/06/21 10:45 Pulse Ox 99 06/06/21 10:45 Body Mass Index 26.9 Const: Other: elderly male responsive to tactile stimulus non verbal Nutritional Appearance: average body habitus Limitations: altered mental status HENMT: Head: Yes normal to inspection Ears: external ears normal General nose exam: Normal external nose present Mouth: Normal oral and palatal mucosa present and oropharynx normal Throat: Yes posterior oropharynx normal Eyes: General: appearance normal, both eyes and all related structures Neck: Other: supple Neck: Yes normal visual inspection Chest: Chest palpation & inspection: normal inspection of the chest Resp: Auscultation: clear to auscultation bilaterally Cardio: Jugular venous distension: no JVD Rate: regular rate Rhythm: regular rhythm Heart sounds: S1 normal heart sound present and S2 normal heart sound present GI: Inspection: Yes normal to inspection Palpation (GI): Soft to palpation, nontender and No hepatosplenomegaly present Auscultation: normal bowel sounds : General: Yes no CVA tenderness Back/Spine/Pelvis: Back: no CVA tenderness Skin: General skin exam: no rashes or lesions noted Neuro: Other: moves all extremities to tactile stimulus Extrem: General: Yes normal to inspection Psych: Other: nonverbal Course Reevaluation(s) Reevaluation #1: patient with severe encephalopathy who seized today, started patient back on his keppra Time: 12:22 Medical Decision Making Lab Data Result diagrams: 06/06/21 11:21 06/06/21 11:21 Labs: Lab Results 11/23/21 11/23/21 Range/Units 11:21 11:21 WBC 8.1 (4.8-10.8) X10*3/uL RBC 5.11 (4.60-5.80) X10*6/uL Hgb 16.5 (14.0-18.0) g/dl Hct 47.2 (42.0-52.0) % MCV 92.4 (80.0-98.0) fL MCH 32.3 (27.0-33.0) pg MCHC 35.0 (31.0-36.0) g/dl RDW 12.6 (11.0-16.0) % Plt Count 188 (160-400) X10*3/uL MPV 9.5 (9.4-12.4) fL Immature Gran % (Auto) 0.2 (0.0-0.4) % Neut % (Auto) 90.8 H (45-73) % Lymph % (Auto) 5.6 L (20-40) % [place] % (Auto) 3.3 (2-11) % Eos % (Auto) 0.0 (0-4) % Baso % (Auto) 0.1 (0-2) % Lymph # (Auto) 0.5 L (1.2-4.9) X10*3/uL [place] # (Auto) 0.3 (0.1-1.2) X10*3/uL Eos # (Auto) 0.0 (0.0-0.4) X10*3/uL Baso # (Auto) 0.0 (0.0-0.2) X10*3/uL Abs Immat Gran (auto) 0.02 (0.00-0.03) X10*3/uL Absolute Neuts (auto) 7.4 (2.0-8.3) x10*3/uL Absolute Nucleated RBC 0.000 (0.0-0.012) X10*3/uL Nucleated RBC % (auto) 0.0 (0.0-0.2) /100WBC Smear Tech's Comments VERIFIED Sodium 140 (135-145) mmol/L Potassium 3.8 (3.3-5.1) mmol/L Chloride 104 (96-108) mmol/L Carbon Dioxide 22 (22-29) mmol/L Anion Gap 18 (12-20) BUN 6 L (9-16) mg/dL Creatinine 0.85 (0.5-1.4) mg/dL Estim Creat Clear Calc 70.2 Estimated GFR > 60 Random Glucose 160 H D (60-115) mg/dL Calcium 9.7 D (8.4-10.2) mg/dL Discharge Plan Discharge Clinical Impression: Seizure Dementia, alcoholic Qualifiers: Dementia behavioral disturbance: with behavioral disturbance Qualified Code(s): F10.27 - Alcohol dependence with alcohol-induced persisting dementia Patient Disposition: Home, Self-Care Instructions: Epilepsy in Older Adults (ED) Prescriptions: New levetiracetam [Keppra] 500 mg tablet 500 mg PO BID Qty: 30 RF: 0 No Action multivitamin Tablet 1 tab PO DAILY RF: 0 latanoprost 0.005 % drops 1 drp ophthalmic (eye) BEDTIME RF: 0 atorvastatin 80 mg tablet 1 tab PO DAILY RF: 0 acetaminophen [Tylenol] 325 mg Tablet 650 mg PO Q4H PRN (Reason: PAIN OR TEMP >100F) RF: 0 donepezil 5 mg tablet 1 tab PO BEDTIME RF: 0 naltrexone 50 mg tablet 1 tab PO QAM RF: 0 melatonin 3 mg Tablet 6 mg PO BEDTIME PRN (Reason: Insomnia) RF: 0 amlodipine 5 mg tablet 1 tab PO DAILY RF: 0 citalopram 20 mg tablet 1 tab PO DAILY RF: 0 magnesium hydroxide [Milk of Magnesia] 400 mg/5 mL Suspension 30 ml PO BEDTIME PRN (Reason: Constipation) RF: 0 aspirin 81 mg Tablet,Chewable 81 mg PO DAILY RF: 0 folic acid 1 mg Tablet 1 mg PO DAILY RF: 0 thiamine HCl (vitamin B1) 100 mg tablet 100 mg PO DAILY Qty: 30 RF: 0 dextrose [Glucose Gel] 40 % Gel 20 g PO Q15M PRN (Reason: Hypoglycemia) RF: 0 Referrals: Jelena Schwartz MD [Primary Care Provider] - 1 week
[2021-06-06 11:26] LABS: Basophils Percent Auto 0.1 % (0-2); Hematocrit 47.2 % (42.0-52.0); Hemoglobin 16.5 g/dl (14.0-18.0); Imm Gran Abs Auto 0.02 X10*3/uL (0.00-0.03); Imm Gran Pct Auto 0.2 % (0.0-0.4); Lymphocytes Absolute Auto 0.5 X10*3/uL (1.2-4.9); Lymphocytes Percent Auto 5.6 % (20-40); MANUAL DIFF FLAG SCAN; Mean Corpuscular Hemoglobin 32.3 pg (27.0-33.0); Mean Corpuscular Volume 92.4 fL (80.0-98.0); Mean Platelet Volume 9.5 fL (9.4-12.4); Monocytes Absolute Auto 0.3 X10*3/uL (0.1-1.2); Monocytes Percent Auto 3.3 % (2-11); Neutrophils Absolute Auto 7.4 x10*3/uL (2.0-8.3); Neutrophils Percent Auto 90.8 % (45-73); Platelet Count 188 X10*3/uL (160-400); Red Blood Count 5.11 X10*6/uL (4.60-5.80); Red Cell Distribution Width 12.6 % (11.0-16.0); SCAN SMEAR FLAG 1; White Blood Count 8.1 X10*3/uL (4.8-10.8)
[2021-06-06] MEDS: levETIRAcetam in NaCl (iso-os) 1,000 MG/100 ML PIGGYBACK 400 MG IV (11:27)
[2021-06-06 11:44] LABS: Anion Gap 18 (12-20); Blood Urea Nitrogen 6 mg/dL (9-16); Calcium 9.7 mg/dL (8.4-10.2); Carbon Dioxide 22 mmol/L (22-29); Chloride 104 mmol/L (96-108); Creatinine Clr Calc Pharmacy 70.2; Estimated Glomerular Filt Rate > 60; Glucose Random 160 mg/dL (60-115); Potassium 3.8 mmol/L (3.3-5.1); SLIDE REVIEW VERIFIED; Sodium 140 mmol/L (135-145)
--- NOTE | 2021-06-06 12:54 | PC.NURSE ---
SPOKE TO ND. PT HAS OCCASIONAL BOUTS OF CATATONIC STATES.
== END 2021-06-06 15:03 | disposition home or self-care (01) ==
PROVIDERS: Emergency Provider Emergency Medicine; PCP Internal Medicine
DX: F10.27 Alcohol dependence with alcohol-induced persisting dementia (principal); R56.9 Unspecified convulsions; Z79.899 Other long term (current) drug therapy
CPT/HCPCS: 36415; 80048; 85025; 96374; 99283; 99284; J1953

== ENCOUNTER 2022-03-23 16:42 | Emergency (ER) | payer MEDICARE, MEDICAID, SELFPAY ==
[2022-03-23 17:00] VITALS: BP 130/80; PULSE 80; O2SAT 98; BMI 25.0
[2022-03-23 17:04] VITALS: BP 128/79; PULSE 78; RESP 14; TEMP 36.6; O2SAT 96
--- NOTE | 2022-03-23 17:06 | ED.GENADULT ---
HPI - General Adult General Chief complaint: ETOH/Substance Use Stated complaint: NEAR SYNCOPE Time Seen by Provider: 03/23/22 17:06 Source: patient and EMS Mode of arrival: EMS Limitations: altered mental status (chronically) History of Present Illness HPI narrative: Patient is a 76 year old male presenting to the emergency department today after a near syncopal episode. Patient states that he was out grocery shopping and drinking alcohol when he almost passed out. Patient states that he was waiting outside of the grocery store in the heat for multiple hours when he felt like he was going to pass out so they called an ambulance for him. Patient denies any current dizziness, lightheadedness, abdominal pain, nausea, vomiting, fever, chills, blurry vision, double vision, loss of vision, chest pain, difficulty breathing, shortness of breath, back pain, night sweats, pain with urination, increased urinary frequency, increased urinary urgency, blood in his urine or stool, syncope or a near syncopal episode, recent trauma or falls, bowel incontinence, bladder incontinence, bowel retention, bladder retention, or any other complaints at this time. Severity: mild Relieving factors: none Exacerbating factors: none Associated symptoms: denies other symptoms Treatments prior to arrival: none Related Data Home Medications Medication Instructions Recorded Confirmed acetaminophen 325 mg tablet 650 mg PO Q4H PRN PAIN OR TEMP 02/09/21 03/31/21 (Tylenol) >100F amlodipine 5 mg tablet 1 tab PO DAILY 02/09/21 03/31/21 aspirin 81 mg chewable tablet 81 mg PO DAILY 02/09/21 03/31/21 atorvastatin 80 mg tablet 1 tab PO DAILY 02/09/21 03/31/21 citalopram 20 mg tablet 1 tab PO DAILY 02/09/21 03/31/21 donepezil 5 mg tablet 1 tab PO BEDTIME 02/09/21 03/31/21 folic acid 1 mg tablet 1 mg PO DAILY 02/09/21 03/31/21 latanoprost 0.005 % eye drops 1 drp ophthalmic (eye) BEDTIME 02/09/21 03/31/21 magnesium hydroxide 400 mg/5 mL 30 ml PO BEDTIME PRN Constipation 02/09/21 03/31/21 oral suspension (Milk of Magnesia) melatonin 3 mg tablet 6 mg PO BEDTIME PRN Insomnia 02/09/21 03/31/21 multivitamin 1 tab PO DAILY 02/09/21 03/31/21 naltrexone 50 mg tablet 1 tab PO QAM 02/09/21 03/31/21 dextrose 40 % oral gel (Glucose 20 g PO Q15M PRN Hypoglycemia 03/31/21 03/31/21 Gel) Previous Rx's Medication Instructions Recorded thiamine HCl (vitamin B1) 100 mg 100 mg PO DAILY #30 tabs 02/13/21 tablet levetiracetam 500 mg tablet 500 mg PO BID #30 tabs 06/06/21 (Keppra) Allergies Allergy/AdvReac Type Severity Reaction Status Date / Time No Known Allergies Allergy Verified 02/09/21 09:54 Review of Systems Constitutional: Constitutional: Reports no additional constitutional complaints, Denies chills, Denies fever(s) and Denies night sweats Eyes: Eyes: Reports no additional eye complaints, Denies blurry vision, Denies change in vision, Denies diplopia, Denies eye discharge, Denies loss of vision and Denies eye pain ENT: Denies dizziness Cardiovascular: Cardiovascular: Reports no additional cardiovascular complaints, Denies chest pain, Denies lightheadedness, Denies Loss of Consciousness and Denies dyspnea Respiratory: Respiratory: Reports no additional respiratory complaints and Denies dyspnea Gastrointestinal: Gastrointestinal: Reports no additional gastrointestinal complaints, Denies abdominal pain, Denies melena, Denies hematochezia, Denies change in bowel habits and Denies change in stool character Genitourinary: Genitourinary: Reports no additional male genitourinary complaints, Denies hematuria, Denies oliguria, Denies difficulty urinating, Denies dysuria, Denies urinary frequency, Denies urinary hesitancy, Denies urinary incontinence and Denies urinary urgency Musculoskeletal: Musculoskeletal: Reports no additional musculoskeletal complaints, Denies numbness and Denies tingling Neurologic: Denies dizziness, Denies loss of vision, Denies numbness and Denies tingling Psychiatric: Psychiatric: Reports no additional psychiatric complaints Endocrine: Endocrine: Reports no additional endocrine complaints Hematologic/Lymphatic: Hematologic/Lymphatic: Reports no additional hematologic/lymphatic complaints Allergic/Immunologic: Allergic/Immunologic: Reports no additional allergic/immunologic complaints PMFSH Past Medical History Attestation statement: The following information was validated with the patient. Source: old records reviewed Medical History Diabetes EtOH dependence History of alcohol abuse HTN (hypertension) MDD (major depressive disorder) Wernicke encephalopathy Social History Social History Household Members: None Housing: Assisted Living Facility Unable to assess alcohol history related to: Unable to respond Alcohol intake: never Patient Tobacco Use Status: Tobacco use Unknown Advance Directives: Yes Advance Directives on File: Yes Advance Directives Date on File: 02/09/21 Current occupational status: retired Physical Exam ED Vital Signs: Vital Signs - 24 hr 03/23/22 17:04 03/23/22 19:43 Temperature 97.8 F Pulse Rate 78 66 Respiratory Rate 14 18 Blood Pressure 128/79 128/65 Pulse Oximetry 96 98 Oxygen Delivery Method Room Air Room Air BMI result Body Mass Index 25.0 Const General: cooperative, no acute distress, alert and awake Nutritional Appearance: well nourished Orientation/consciousness: patient oriented x3 Limitations: no limitations HENMT Head: Yes normal to inspection and Yes atraumatic Ears: hearing grossly normal bilaterally and external ears normal General nose exam: Normal external nose present, no nasal discharge noted and no epistaxis Face and sinus: Yes normal facial exam, No abrasion and No laceration Mouth: Normal oral and palatal mucosa present, no drooling and no muffled voice Eyes General: appearance normal, both eyes and all related structures Periorbital: periorbital findings normal Eyelids: Yes eyelids normal Conjunctivae: conjunctivae normal Pupils: Equal, round and reactive pupils present EOM: EOMs intact bilaterally Neck Neck: Yes normal visual inspection, Yes full ROM and Yes no lymphadenopathy Chest Chest palpation & inspection: normal inspection of the chest Resp Effort & Inspection: normal respiratory effort and able to speak in complete sentences Auscultation: clear to auscultation bilaterally Cardio Rate: regular rate Rhythm: regular rhythm GI Inspection: Yes normal to inspection Neuro General: patient oriented x3 and moves all extremities Cranial nerves: Yes Equal, round and reactive pupils present Cognition (Neuro): normal cognition Motor exam (neuro): 5/5 motor strength present throughout Sensory Exam: Normal double simultaneous stimulation for sensation Coordination: [id number] test normal Extrem General: Yes normal to inspection, Yes full ROM and Yes capillary refill normal Psych Appearance: grossly normal Mental Status: mental status grossly normal Affect: normal affect Attitude: cooperative Thought process: Normal thought process present Thought content: Normal thought content present Insight: Good insight present (Psych) Medical Decision Making MDM Narrative Medical decision making narrative: Patient is a 76 year old male presenting to the emergency department today with a near syncopal episode. Patient confirmed to live in a halfway. correction staff confirms the patient is allowed to come and goes as he pleases and he has transient episodes of confusion. Patient's physical exam was unremarkable. Patient's blood work showed a slightly decreased sodium but was otherwise unremarkable. Patient's EKG was unremarkable. I explained my physical exam findings as well as all test results to the patient. I answered all questions asked by the patient. Patient received IV fluids. I stressed the importance of the patient taking his medication as prescribed. I stressed the importance of the patient following up with his primary care provider. I stressed the importance of the patient returning to the emergency department immediately if his symptoms were to worsen or if he were to develop any dizziness, shortness of breath, difficulty breathing, chest pain, blurry vision, loss of vision, nausea, vomiting, abdominal pain, fever, chills, back pain, or any other complaints. Patient verbalized agreement and understanding with this treatment plan and discharge. Medical Records Medical records reviewed: Yes I reviewed the patient's medical records. Lab Data Lab results reviewed: Yes I reviewed the patient's lab results. Result diagrams: 03/23/22 17:23 03/23/22 17:23 Labs: Lab Results 03/23/22 03/23/22 03/23/22 Range/Units 17:23 17:23 18:24 WBC 8.0 (4.8-10.8) X10*3/uL RBC 4.94 (4.60-5.80) X10*6/uL Hgb 15.6 (14.0-18.0) g/dl Hct 44.6 (42.0-52.0) % MCV 90.3 (80.0-98.0) fL MCH 31.6 (27.0-33.0) pg MCHC 35.0 (31.0-36.0) g/dl RDW 12.5 (11.0-16.0) % Plt Count 208 (160-400) X10*3/uL MPV 9.6 (9.4-12.4) fL Immature Gran % (Auto) 0.2 (0.0-0.4) % Neut % (Auto) 71.7 (45-73) % Lymph % (Auto) 20.6 (20-40) % [place] % (Auto) 6.6 (2-11) % Eos % (Auto) 0.5 (0-4) % Baso % (Auto) 0.4 (0-2) % Lymph # (Auto) 1.7 (1.2-4.9) X10*3/uL [place] # (Auto) 0.5 (0.1-1.2) X10*3/uL Eos # (Auto) 0.0 (0.0-0.4) X10*3/uL Baso # (Auto) 0.0 (0.0-0.2) X10*3/uL Abs Immat Gran (auto) 0.02 (0.00-0.03) X10*3/uL Absolute Neuts (auto) 5.7 (2.0-8.3) x10*3/uL Absolute Nucleated RBC 0.000 (0.0-0.012) X10*3/uL Nucleated RBC % (auto) 0.0 (0.0-0.2) /100WBC Sodium 133 L (135-145) mmol/L Potassium 3.9 (3.3-5.1) mmol/L Chloride 96 (96-108) mmol/L Carbon Dioxide 23 (22-29) mmol/L Anion Gap 18 (12-20) BUN 10 (9-16) mg/dL Creatinine 0.74 (0.5-1.4) mg/dL Estim Creat Clear Calc 79.3 Estimated GFR > 60 Random Glucose 114 (60-115) mg/dL Calcium 8.8 D (8.4-10.2) mg/dL Magnesium 1.8 (1.6-2.6) mg/dL Total Bilirubin 1.7 H (0.0-1.0) mg/dL AST 29 (5-37) U/L ALT 26 (0-40) U/L Alkaline Phosphatase 134 H (39-117) U/L Total Protein 6.9 (6.5-8.0) g/dL Albumin 4.2 (3.5-5.0) g/dL Urine Color Urine Appearance Urine pH (5.0-9.0) Ur Specific [place] (1.005-1.025) Urine Protein (Neg-Trace) mg/dL Urine Glucose (UA) (Negative) mg/dL Urine Ketones (Negative) mg/dL Urine Blood (Negative) Urine Nitrite (Negative) Ur Leukocyte Esterase (Negative) Salicylates < 5.0 L (15-30) mg/dL Urine Opiates Screen Not Detected (Not Detect) Urine Fentanyl Screen Not Detected (Not Detect) Acetaminophen 1 (<30) mcg/mL Ur Barbiturates Screen Not Detected (Not Detect) Ur Phencyclidine Scrn Not Detected (Not Detect) Ur Amphetamines Screen Not Detected (Not Detect) U Benzodiazepines Scrn Not Detected (Not Detect) Urine Cocaine Screen Not Detected (Not Detect) U Marijuana (THC) Screen Not Detected (Not Detect) Ethyl Alcohol 151 mg/dL 03/23/22 Range/Units 18:24 WBC (4.8-10.8) X10*3/uL RBC (4.60-5.80) X10*6/uL Hgb (14.0-18.0) g/dl Hct (42.0-52.0) % MCV (80.0-98.0) fL MCH (27.0-33.0) pg MCHC (31.0-36.0) g/dl RDW (11.0-16.0) % Plt Count (160-400) X10*3/uL MPV (9.4-12.4) fL Immature Gran % (Auto) (0.0-0.4) % Neut % (Auto) (45-73) % Lymph % (Auto) (20-40) % [place] % (Auto) (2-11) % Eos % (Auto) (0-4) % Baso % (Auto) (0-2) % Lymph # (Auto) (1.2-4.9) X10*3/uL [place] # (Auto) (0.1-1.2) X10*3/uL Eos # (Auto) (0.0-0.4) X10*3/uL Baso # (Auto) (0.0-0.2) X10*3/uL Abs Immat Gran (auto) (0.00-0.03) X10*3/uL Absolute Neuts (auto) (2.0-8.3) x10*3/uL Absolute Nucleated RBC (0.0-0.012) X10*3/uL Nucleated RBC % (auto) (0.0-0.2) /100WBC Sodium (135-145) mmol/L Potassium (3.3-5.1) mmol/L Chloride (96-108) mmol/L Carbon Dioxide (22-29) mmol/L Anion Gap (12-20) BUN (9-16) mg/dL Creatinine (0.5-1.4) mg/dL Estim Creat Clear Calc Estimated GFR Random Glucose (60-115) mg/dL Calcium (8.4-10.2) mg/dL Magnesium (1.6-2.6) mg/dL Total Bilirubin (0.0-1.0) mg/dL AST (5-37) U/L ALT (0-40) U/L Alkaline Phosphatase (39-117) U/L Total Protein (6.5-8.0) g/dL Albumin (3.5-5.0) g/dL Urine Color Yellow Urine Appearance Clear Urine pH 5.5 (5.0-9.0) Ur Specific [place] 1.010 (1.005-1.025) Urine Protein Negative (Neg-Trace) mg/dL Urine Glucose (UA) Negative (Negative) mg/dL Urine Ketones Trace (Negative) mg/dL Urine Blood Negative (Negative) Urine Nitrite Negative (Negative) Ur Leukocyte Esterase Negative (Negative) Salicylates (15-30) mg/dL Urine Opiates Screen (Not Detect) Urine Fentanyl Screen (Not Detect) Acetaminophen (<30) mcg/mL Ur Barbiturates Screen (Not Detect) Ur Phencyclidine Scrn (Not Detect) Ur Amphetamines Screen (Not Detect) U Benzodiazepines Scrn (Not Detect) Urine Cocaine Screen (Not Detect) U Marijuana (THC) Screen (Not Detect) Ethyl Alcohol mg/dL ECG Data Attestation: I personally reviewed and interpreted this ECG as follows: Prior ECG tracings: available for review Interpretation: Vent. Rate: 061 BPM ? ? Atrial Rate: 061 BPM P-R Int: 368 ms? QRS Dur: 104 ms QT Int: 442 ms ? ? ? P-R-T Axes: 043 -71 044 degrees QTc Int: 444 ms ? Sinus rhythm with 1st degree A-V block Left axis deviation Anterolateral infarct (cited on or before 09-FEB-2021) Abnormal ECG When compared with ECG of 31-MAR-2021 15:31, No significant change was found DD/ Discharge Plan Discharge Clinical Impression: Dementia, alcoholic Patient Disposition: Home, Self-Care Instructions: Abuse of Alcohol (ED) Additional Instructions: Follow up with your primary care provider. Return to the emergency department immediately if your symptoms worsen or if you develop any dizziness, shortness of breath, difficulty breathing, chest pain, blurry vision, loss of vision, nausea, vomiting, abdominal pain, fever, chills, back pain, or any other complaints. Prescriptions: No [facility] multivitamin Tablet 1 tab PO DAILY latanoprost 0.005 % drops 1 drp ophthalmic (eye) BEDTIME atorvastatin 80 mg tablet 1 tab PO DAILY acetaminophen [Tylenol] 325 mg Tablet 650 mg PO Q4H PRN (Reason: PAIN OR TEMP >100F) donepezil 5 mg tablet 1 tab PO BEDTIME naltrexone 50 mg tablet 1 tab PO QAM melatonin 3 mg Tablet 6 mg PO BEDTIME PRN (Reason: Insomnia) amlodipine 5 mg tablet 1 tab PO DAILY citalopram 20 mg tablet 1 tab PO DAILY magnesium hydroxide [Milk of Magnesia] 400 mg/5 mL Suspension 30 ml PO BEDTIME PRN (Reason: Constipation) aspirin 81 mg Tablet,Chewable 81 mg PO DAILY folic acid 1 mg Tablet 1 mg PO DAILY thiamine HCl (vitamin B1) 100 mg tablet 100 mg PO DAILY Qty: 30 0RF dextrose [Glucose Gel] 40 % Gel 20 g PO Q15M PRN (Reason: Hypoglycemia) levetiracetam [Keppra] 500 mg tablet 500 mg PO BID Qty: 30 0RF Referrals: [facility] Family [facility] [Provider Group] (Call to follow up and establish with a primary care provider. If you already have a primary care provider, please call and follow up with them. ) [facility] [place] (Call to follow up and establish with a primary care provider. If you already have a primary care provider, please call and follow up with them. ) [facility] [Provider Group] (Call to follow up and establish with a primary care provider. If you already have a primary care provider, please call and follow up with them. ) Print Language: Yakut
--- NOTE | 2022-03-23 17:15 | ECG_ITS ---
Test Reason : near syncope Blood Pressure : / mmHG Vent. Rate : 061 BPM Atrial Rate : 061 BPM P-R Int : 368 ms QRS Dur : 104 ms QT Int : 442 ms P-R-T Axes : 043 -71 044 degrees QTc Int : 444 ms Sinus rhythm with 1st degree A-V block Left axis deviation Anterolateral infarct (cited on or before 09-FEB-2021) Abnormal ECG When compared with ECG of 31-MAR-2021 15:31, No significant change was found Referred By: Prabha Olivares Electronically Signed By:TRAE VARELA
[2022-03-23] MEDS: 0.9 % Sodium Chloride 1,000 ML 999 ML IV (17:25)
[2022-03-23 17:29] LABS: MANUAL DIFF FLAG NO
[2022-03-23 17:34] LABS: Basophils Percent Auto 0.4 % (0-2); Eosinophils Percent Auto 0.5 % (0-4); Hematocrit 44.6 % (42.0-52.0); Hemoglobin 15.6 g/dl (14.0-18.0); Imm Gran Abs Auto 0.02 X10*3/uL (0.00-0.03); Imm Gran Pct Auto 0.2 % (0.0-0.4); Lymphocytes Absolute Auto 1.7 X10*3/uL (1.2-4.9); Lymphocytes Percent Auto 20.6 % (20-40); Mean Corpuscular Hemoglobin 31.6 pg (27.0-33.0); Mean Corpuscular Volume 90.3 fL (80.0-98.0); Mean Platelet Volume 9.6 fL (9.4-12.4); Monocytes Absolute Auto 0.5 X10*3/uL (0.1-1.2); Monocytes Percent Auto 6.6 % (2-11); Neutrophils Absolute Auto 5.7 x10*3/uL (2.0-8.3); Neutrophils Percent Auto 71.7 % (45-73); Platelet Count 208 X10*3/uL (160-400); Red Blood Count 4.94 X10*6/uL (4.60-5.80); Red Cell Distribution Width 12.5 % (11.0-16.0)
[2022-03-23 17:55] LABS: Acetaminophen LAB 1 mcg/mL (<30); Alanine Aminotransferase 26 U/L (0-40); Albumin Level 4.2 g/dL (3.5-5.0); Alkaline Phosphatase 134 U/L (39-117); Anion Gap 18 (12-20); Aspartate Amino Transferase 29 U/L (5-37); Bilirubin Total 1.7 mg/dL (0.0-1.0); Blood Urea Nitrogen 10 mg/dL (9-16); Calcium 8.8 mg/dL (8.4-10.2); Carbon Dioxide 23 mmol/L (22-29); Chloride 96 mmol/L (96-108); Creatinine Clr Calc Pharmacy 79.3; Estimated Glomerular Filt Rate > 60; Ethanol 151 mg/dL; Glucose Random 114 mg/dL (60-115); Magnesium 1.8 mg/dL (1.6-2.6); Potassium 3.9 mmol/L (3.3-5.1); Salicylate < 5.0 mg/dL (15-30); Sodium 133 mmol/L (135-145); Total Protein 6.9 g/dL (6.5-8.0)
[2022-03-23 18:32] LABS: Appearance Urine Clear; Color Urine Yellow; Glucose Urine UA Negative (Negative); Leukocyte Esterase Urine Negative (Negative); Nitrite Urine Negative (Negative); PH 5.5 (5.0-9.0); Urine Blood Negative (Negative); Urine Ketones Trace mg/dL (Negative); Urine Protein Negative (Neg-Trace)
[2022-03-23 18:44] LABS: Amphetamine Screen Urine Not Detected (Not Detect); Barbiturates, Urine Not Detected (Not Detect); Benzodiazepines Screen Urine Not Detected (Not Detect); Cannabinoid Screen Urine Not Detected (Not Detect); Cocaine Screen Urine Not Detected (Not Detect); Fentanyl, urine Not Detected (Not Detect); Opiate Screen Urine Not Detected (Not Detect); Phencyclidine Screen Urine Not Detected (Not Detect)
--- NOTE | 2022-03-23 19:39 | PC.NURSE ---
This US/PCT called [facility] at [phone] for a BLS transfer back to [facility],Spoke with Eleni booked for [phone].Rn and it support engineer aware
[2022-03-23 19:43] VITALS: BP 128/65; PULSE 66; RESP 18; O2SAT 98
[2022-03-23] MEDS: Acetaminophen 325 MG TABLET 650 MG PO (20:10)
[2022-03-23 22:48] VITALS: BP 124/59; PULSE 57; RESP 16; O2SAT 97
--- NOTE | 2022-03-24 00:24 | PC.NURSE ---
[facility] called at 2300 and spoke to Pradeep from dispatch to get an ETA on an EMS booked earlier in my shift he states they should be here around midnight.Rn and Nib Inspector aware.
== END 2022-03-24 01:22 | disposition home or self-care (01) ==
PROVIDERS: Physician Assistant Medical; Emergency Provider Emergency Medicine
DX: F10.97 Alcohol use, unspecified with alcohol-induced persisting dementia (principal); R55 Syncope and collapse; Y90.6 Blood alcohol level of 120-199 mg/100 ml; Z79.899 Other long term (current) drug therapy
CPT/HCPCS: 80053; 80143; 80179; 80307; 81003; 82077; 83735; 85025; 93005; 96360; 96361; 99285

== ENCOUNTER 2024-09-05 13:16 | Emergency (ER) | payer MEDICARE, MEDICAID, SELFPAY ==
--- NOTE | ~2024-09-05 | CT_ITS ---
CLINICAL HISTORY: seizure CT head without contrast Comparison: CT/REG - CT HEAD/BRAIN WO CON - 03/31/21 15:[address]/REG - CT HEAD/BRAIN WO CON - 02/09/21 10:53 EDT Findings: No intra-axial mass, midline shift, hydrocephalus, or acute hemorrhage. Mild diffuse cerebral volume loss. Mild degree of patchy low-density within the periventricular and subcortical white matter. There is no sinus or mastoid fluid. The orbits are within normal limits. There is no acute fracture. IMPRESSION: 1. No acute intracranial findings. This document has been electronically signed by: Fatoumata Del Angel MD on 09/05/2024 14:47:53
[2024-09-05 13:31] VITALS: BP 113/68; BP 135/69; PULSE 90; PULSE 92; RESP 14; TEMP 37; O2SAT 91; O2SAT 94; BMI 29.4
--- OUTSIDE RECORDS SUMMARY | 2024-09-05 13:50 | XMS_ITS ---
Author Organization [facility] Address Unknown Medications Medication Dose Frequency Directions Start Date End Keegan e Naltrexone HCl Tablet 50 MG 1 {tbl} Give 1 tablet by pamela th in the morning for antidote related to ALCOHOL DEPENDENCE, UNCOMPLICATED (F10.20) 12/13/2020 Citalopram Hydrobromide Tablet 20 MG 1 {tbl} Give 1 tablet by pamela th in the morning for depression related to DEPRESSION, UNSPECIFIED (F32.A) 12/13/2020 Citrate of Magnesia Solution 1 {Dose} Give 1 dose by mouth as needed for Constipation (Step 4) as needed one bottle PO if no bowel movement in 12 hours after 12/12/2020 Fleet Enema Enema 7-19 GM/118ML 1 {Dose} Insert 1 dose rectal ly as needed for Constipation (Step 3) as needed if no bowel movement for 8 hours after bisacodyl suppository. 12/12/2020 Milk of Magnesia Suspension 400 MG/5ML 30 mL Give 30 ml by mouth as needed for Constipation (Step 1) As needed if no bowel movement for three days. (Do not use for Hemodialysis patients). 12/12/2020 Bisacodyl Suppository 10 MG 1 Insert 1 suppository rectally as needed for If no bowel movement for 8 hours after Milk of Magnesia 12/12/2020 Glutose 45 Gel 40 % 1 {Dose} Give 1 d ose by mouth as needed for hypoglycemic protocol Give one tube PO/SL if FSBS <50 and able to swallow PRN. Recheck FSBS 10 minutes after administration and call provider. 12/12/2020 GlucaGen HypoKit Solution Reconstituted 1 MG 1 mg Inject 1 mg subcutaneously as needed for hypoglycemic protocol Special instructions: Glucagen 1 mg hypokit subcutaneous if FSBS below 60 and unable to swallow.Recheck FSBS in 10 minutes and update provider. 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 Recheck FSBS 10 minutes after administration and call provider. 04/07/2024 GlucaGen HypoKit Solution Reconstituted 1 MG 1 mg Inject 1 mg subcutaneously as needed for hypoglycemic protocol Special instructions: Glucagen 1 mg hypokit subcutaneous if FSBS below 60 and unable to swallow.Recheck FSBS in 10 minutes and update provider. 04/07/2024 Lipitor Oral Tablet 40 MG 40 mg Give 40 mg by mouth at bedtime related to HYPERLIPIDEMIA, UNSPECIFIED (E78.5) 04/08/2024 Comirnaty Intramuscular Suspension Prefilled Syringe 30 MCG/0.3ML 0.3 mL Inject 0.3 ml intramuscularly as needed for vaccine give x1 06/08/2024 HumaLOG Solution 100 UNIT/ML Inject as per slidin g scale: if 0 - 60 = 0 UNITS IF FSBS BETWEEN 0-60 ADMINISTER NO INSULIN AND FOLLOW HYPOGLYCEMIC PROTOCOL & NOTIFY /KRISTY; 61 - 200 = 0 UNITS IF FSBS BETWEEN 61-200 THEN NO COVERAGE IS NEEDED; 201 - 250 = 4 UNITS IF FSBS BETWEEN 201-250 ADMINISTER 4 UNITS INSULIN SUBCUTANEOUSLY; 251 - 300 = 6 UNITS IF FSBS IS BETWEEN 251-300 ADMINISTER 6 UNITS INSULIN SUBCUTANEOUSLY; 301 - 350 = 8 UNITS IF FSBS IS BETWEEN 301-350 ADMINISTER 8 UNITS INSULIN SUBCUTANEOUSLY; 351 - 400 = 10 UNITS IF FSBS IS BETWEEN 351-400 ADMINISTER 10 UNITS INSULIN SUBCUTANEOUSLY; 401+ = 12 UNITS IF FSBS OVER 401 THEN ADMINISTER 12 UNITS INSULIN SUBCUTANEOUSLY AND NOTIFY MD/BUTTON RECLAIMER, subcutaneously before meals for diabetic management 07/20/2024 08/29/2024 Naloxone HCl Liquid 4 MG/0.1ML 1 {Dose} 1 dose in nostril as needed for unresponsiveness or difficulty breathing r/t OPIOID overdose If cessation of breathing occurs and patient is FULL CODE, initiate CPR and call 911. Call 911 even if the initial response is positive. May give twice daily as needed. 07/22/2024 HumaLOG Solution 100 UNIT/ML Inject as per slidin g scale: if 0 - 60 = 0 UNITS IF FSBS BETWEEN 0-60 ADMINISTER NO INSULIN AND FOLLOW HYPOGLYCEMIC PROTOCOL & NOTIFY MD/BUTTON RECLAIMER; 61 - 200 = 0 UNITS IF FSBS BETWEEN 61-200 THEN NO COVERAGE IS NEEDED; 201 - 250 = 4 UNITS IF FSBS BETWEEN 201-250 ADMINISTER 4 UNITS INSULIN SUBCUTANEOUSLY; 251 - 300 = 6 UNITS IF FSBS IS BETWEEN 251-300 ADMINISTER 6 UNITS INSULIN SUBCUTANEOUSLY; 301 - 350 = 8 UNITS IF FSBS IS BETWEEN 301-350 ADMINISTER 8 UNITS INSULIN SUBCUTANEOUSLY; 351 - 400 = 10 UNITS IF FSBS IS BETWEEN 351-400 ADMINISTER 10 UNITS INSULIN SUBCUTANEOUSLY; 401+ = 12 UNITS IF FSBS OVER 401 THEN ADMINISTER 12 UNITS INSULIN SUBCUTANEOUSLY AND NOTIFY MD/BUTTON RECLAIMER, subcutaneously before meals related to TYPE 2 DIABETES MELLITUS WITHOUT COMPLICATIONS (E11.9) If blood sugar >400, recheck and notify MD. Once patient is treated for hyperglycemia, recheck blood sugar in one hour. 08/29/2024 Medications Administered Medication Dose Frequency Status Start Date End Date Naltrexone HCl Tablet 50 MG 1 {tbl} 09/05/2024 Citalopram Hydrobromide Tablet 20 MG 1 {tbl} 09/05/2024 Citrate of Magnesia Solution 1 {Dose} 12/12/2020 Fleet Enema Enema 7-19 GM/118ML 1 {Dose} 12/12/2020 Milk of Magnesia Suspension 400 MG/5ML 30 mL 12/12/2020 Bisacodyl Suppository 10 MG 1 12/12/2020 Glutose 45 Gel 40 % 1 {Dose} 12/12/2020 GlucaGen HypoKit Solution Reconstituted 1 MG 1 mg 12/12/2020 amLODIPine Besylate Tablet 5 MG 1 {tbl} 09/05/2024 Tylenol Extra Strength Tablet 500 MG 2 {tbl} 10/12/2023 Aspirin Oral Capsule 81 MG 1 {Capsule} 09/05/2024 Latanoprost Emulsion 0.005 % 1 [drp] 09/04/2024 Pataday Ophthalmic Solution 0.1 % 1 [drp] 12 h Other / See Progress Notes?? 09/05/2024 Combivent Respimat Inhalation Aerosol Solution 20-100 MCG/ACT 1 05/28/2023 Glutose 45 Gel 40 % 1 {Dose} 04/07/2024 GlucaGen HypoKit Solution Reconstituted 1 MG 1 mg 04/07/2024 Lipitor Oral Tablet 40 MG 40 mg 09/04/2024 Comirnaty Intramuscular Suspension Prefilled Syringe 30 MCG/0.3ML 0.3 mL 06/09/2024 HumaLOG Solution 100 UNIT/ML 08/29/2024 Naloxone HCl Liquid 4 MG/0.1ML 1 {Dose} 07/22/2024 HumaLOG Solution 100 UNIT/ML Hold/See Progress Notes 09/05/2024 Problems Problem Status Start Date End Date ALCOHOL DEPENDENCE, UNCOMPLI CATED (Primary) (F10.20 - ICD-10-CM) ACTIVE 11/20/2022 WERNICKE'S ENCEPHALOPATHY (P rimary) (E51.2 - ICD-10-CM) RESOLVED 12/12/2020 07/22/2024 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.82 - ICD-10-CM) ACTIVE 03/27/2023 ALCOHOL ABUSE, IN REMISSION (F10.11 - ICD-10-CM) ACTIV E 04/13/2022 DEPRESSION, UNSPECIFIED (F32.A - ICD-10-CM) ACTIVE 11/20/2022 TYPE 2 DIABETES MELLITUS WIT HOUT COMPLICATIONS (E11.9 - ICD-10-CM) ACTIVE 12/12/2020 ESSENTIAL (PRIMARY) HYPERTENSION (I10 - ICD-10-CM) ACT SAMIRA 12/12/2020 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 - ICD-10-CM) RESOLVED 11/20/2022 07/22/2024 HYPERLIPIDEMIA, UNSPECIFIED (E78.5 - ICD-10-CM) ACTIVE 11/20/2022 PERSONAL HISTORY OF TRANSIEN T ISCHEMIC ATTACK (TIA), AND 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 - ICD-10-CM) ACTIVE 07/22/2024 DYSPHAGIA, OROPHARYNGEAL PHASE (R13.12 - ICD-10-CM) AC TIVE 07/09/2024 PERSONAL HISTORY OF OTHER ME NTAL AND BEHAVIORAL DISORDERS (Z86.59 - ICD-10-CM) ACTIVE 10/16/2023 DERMATITIS, UNSPECIFIED (L30.9 - ICD-10-CM) RESOLVED 10/16/2023 07/22/2024 ALCOHOL USE, UNSPECIFIED, UN COMPLICATED (F10.90 - ICD-10-CM) ACTIVE 03/27/2023 UNSPECIFIED SYMPTOMS AND SIG NS INVOLVING COGNITIVE FUNCTIONS FOLLOWING CEREBRAL INFARCTION (I69.319 - ICD-10-CM) ACTIVE 03/27/2023 ALTERED MENTAL STATUS, UNSPE CIFIED (R41.82 - ICD-10-CM) RESOLVED 11/20/2022 06/08/2024 TYPE 2 DIABETES MELLITUS WIT H OTHER CIRCULATORY COMPLICATIONS (E11.59 - ICD-10-CM) ACTIVE 11/20/2022 OTHER MALAISE (R53.81 - ICD-10-CM) RESOLVED 202207/22/2024 EPILEPSY, UNSPECIFIED, NOT I NTRACTABLE, WITHOUT STATUS EPILEPTICUS (G40.909 - ICD-10-CM) ACTIVE 11/20/2022 UNSPECIFIED LACK OF COORDINATION (R27.9 - ICD-10-CM) R ESOLVED 08/07/2022 06/08/2024 HEADACHE, UNSPECIFIED (R51.9 - ICD-10-CM) RESOLVED 04/23/2022 07/22/2024 UNSPECIFIED DEMENTIA, UNSPEC IFIED SEVERITY, WITHOUT BEHAVIORAL DISTURBANCE, PSYCHOTIC DISTURBANCE, MOOD DISTURBANCE, AND ANXIETY (F03.90 - ICD-10-CM) ACTIVE 03/20/2022 OTHER SYMBOLIC DYSFUNCTIONS (R48.8 - ICD-10-CM) RESOLV ED 02/01/2022 06/08/2024 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) RESOLVED 04/03/2021 07/22/2024 OTHER SYMPTOMS AND SIGNS INV OLVING COGNITIVE FUNCTIONS AND AWARENESS (R41.89 - ICD-10-CM) ACTIVE 12/12/2020 REPEATED FALLS (R29.6 - ICD-10-CM) RESOLVED 202006/08/2024 ADULT FAILURE TO THRIVE (R62.7 - ICD-10-CM) ACTIVE 12/12/2020 URINARY TRACT INFECTION, SIT E NOT SPECIFIED (N39.0 - ICD-10-CM) RESOLVED 12/12/2020 06/08/2024 RHABDOMYOLYSIS (M62.82 - ICD-10-CM) RESOLVED 12/1206/08/2024 BENIGN PROSTATIC HYPERPLASIA WITH LOWER URINARY TRACT SYMPTOMS (N40.1 - ICD-10-CM) ACTIVE 12/12/2020 MAJOR DEPRESSIVE DISORDER, R ECURRENT, MILD (F33.0 - ICD-10-CM) ACTIVE 12/12/2020 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 - ICD-10-CM) ACTIVE 12/12/2020 PERSONAL HISTORY OF OTHER SP ECIFIED CONDITIONS (Z87.898 - ICD-10-CM) ACTIVE 12/12/2020 ALCOHOL DEPENDENCE WITH WITH DRAWAL, UNSPECIFIED (F10.239 - ICD-10-CM) ACTIVE 12/12/2020 UNSPECIFIED FALL, INITIAL EN COUNTER (W19.XXXA - ICD-10-CM) RESOLVED 10/16/2023 06/08/2024 MAJOR DEPRESSIVE DISORDER, R ECURRENT, IN PARTIAL REMISSION (F33.41 - ICD-10-CM) ACTIVE 10/16/2023 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) ACTIVE 10/16/2023 ANXIETY DISORDER, UNSPECIFIED (F41.9 - ICD-10-CM) ACTI VE 10/16/2023 ENCEPHALOPATHY, UNSPECIFIED (G93.40 - ICD-10-CM) RESOL [place] 10/16/2023 06/08/2024 CEREBRAL INFARCTION, UNSPECIFIED (I63.9 - ICD-10-CM) R ESOLVED 10/16/2023 07/22/2024 ALCOHOL USE, UNSPECIFIED WIT H INTOXICATION, UNSPECIFIED (F10.929 - ICD-10-CM) RESOLVED 10/16/20232024 DIZZINESS AND GIDDINESS (R42 - ICD-10-CM) RESOLVED 10/16/2023 07/22/2024 Results * EKG W/ INTERPRETATION Performed by: [employer] Component Value Range Date EKG W/ INTERPRETATION EKG W/ INTERPRETAT IONFINDINGS: Normal sinus rhythm First-degree AV block Delayed R wave progression Left anterior fascicular block QTc 454 ms. Abnormal ECG. Intervals:ELECTRONICALLY SIGNED BY JEAN GOLDMAN M.D. 02/12/2024 5:31:45 PM EDT.Reason for Study: Z79.899 OTHER LONG-TERM (CURRENT) DRUG THERAPYPrincipal Result Partner Manager: JEAN GOLDMAN ([phone])Associate Sales: LEIA JUAREZ (DSEXTON)Associate Agent Insurance Sales Associate Sales: EDUAR 02/12/2024 05:32 pm EDT * ANKLE COMPLETE, MIN 3V Performed by: [employer] Component Value Range Date ANKLE COMPLETE, MIN 3V ANKLE COMPLETE, M IN 3V, RIGHTFINDINGS: There is joint space narrowing, osteophytes, and osteopenia. There is no fracture or dislocation. The soft tissues are unremarkable.CONCLUSION: Osteoarthritis of the right ankle.ELECTRONICALLY SIGNED BY RUBEN AGOSTO D.O. 02/22/2022 3:02:53 PM EDT.Reason for Study: R60.0 LOCALIZED EDEMAPrincipal Result Partner Manager: RUBEN AGOSTO ([phone])Associate Sales: CANDIS RICO (MANISH)Associate Agent Insurance Sales Associate Sales: EDUAR 02/22/2022 03:03 pm EDT * FOOT COMPLETE, MIN 3V Performed by: [employer] Component Value Range Date FOOT COMPLETE, MIN 3V FOOT COMPLETE, MIN 3V, RIGHTFINDINGS: There is moderate degenerative joint disease seen. There is no fracture, dislocation, or soft tissue swelling. No osteomyelitis is seen.CONCLUSION: Moderate degenerative joint disease.ELECTRONICALLY SIGNED BY RUBEN AGOSTO D.O. 02/22/2022 3:02:53 PM EDT.Reason for Study: R60.0 LOCALIZED EDEMAPrincipal Result Partner Manager: RUBEN AGOSTO ([phone])Associate Sales: CANDIS RICO (MANISH)Associate Agent Insurance Sales Associate Sales: EDUAR 02/22/2022 03:03 pm EDT Encounters Encounter Performer Performer Role Encounter Diagnoses Location Date - . [place], [place] - [facility] 12/12/2020 04:01 pm EDT - 02/09/2021 12:26 am EDT Leave - [facility] 02/13/2021 10:43 am EDT - 04/03/2021 07:54 am EDT Leave - [facility] - [facility] 04/03/2021 05:07 pm EDT - 09/05/2024 12:50 pm EST Reason For Referral Seizure Immunizations Vaccine Date Influenza 05/13/2023 12:00 am EDT Influenza 07/21/2021 12:00 am EST Tdap 01/25/2020 12:00 am EDT Tdap 11/17/2019 12:00 am EDT PCV 13 07/21/2021 12:00 am EST Covid-19 Moderna Booster 50mcg(0.25ml)CV X 207 07/05/2021 12:00 am EST Influenza-High Dose(Fluzone) 05/20/2024 12:00 am EST Covid-19 Vaccine (Pfizer CVX 208) dose # 1 07/29/2020 12:00 am EST Covid-19 Vaccine (Pfizer CVX 208) dose # 2 08/19/2020 12:00 am EST Covid-19 Moderna Booster #2 50mcg(0.25ml )CVX 207 11/30/2021 01:00 pm EDT Influenza vaccine [id number] 04/27/2022 1 2:00 am EDT COVID-19 Bivalent Vaccine 04/27/2022 12: 00 am EDT Covid-19 [id number] 08/30/2023 12:00 am EST COVID-19, mRNA, LNP-S, PF, austin-sucrose, 30 mcg/0.3 mL 06/09/2024 12:00 am EST pneumococcal polysaccharide PPV23 2023 12:00 am EST Social History Vital Signs Vital Sign Reading Time Taken bloodSugar 198 mg/dL 09/05/2024 11:14 am EST bloodSugar 126 mg/dL 09/05/2024 07:37 am EST bloodSugar 211 mg/dL 09/04/2024 03:33 pm EST bloodSugar 197 mg/dL 09/04/2024 11:11 am EST bloodSugar 121 mg/dL 09/04/2024 07:10 am EST bloodSugar 121 mg/dL 09/03/2024 04:14 pm EST bloodSugar 257 mg/dL 09/03/2024 11:19 am EST bloodSugar 109 mg/dL 09/03/2024 07:32 am EST bloodSugar 189 mg/dL 09/02/2024 04:01 pm EST bloodSugar 192 mg/dL 09/02/2024 11:17 am EST bloodSugar 111 mg/dL 09/02/2024 07:27 am EST painLevel 0 {score} 09/05/2024 08:20 am EST painLevel 0 {score} 09/05/2024 12:55 am EST painLevel 0 {score} 09/04/2024 03:36 pm EST painLevel 0 {score} 09/04/2024 07:26 am EST painLevel 0 {score} 09/04/2024 12:07 am EST painLevel 0 {score} 09/03/2024 04:14 pm EST painLevel 0 {score} 09/03/2024 08:28 am EST painLevel 0 {score} 09/03/2024 01:54 am EST painLevel 0 {score} 09/02/2024 04:02 pm EST painLevel 0 {score} 09/02/2024 08:26 am EST painLevel 0 {score} 09/02/2024 12:03 am EST
--- OUTSIDE RECORDS SUMMARY | 2024-09-05 13:50 | XMS_ITS | Encounter Summary ---
Author Organization [facility] Address [address] [place] [address] Care Team Providers Care Well Shooter Name Role Phone Yesy Schwartz MD Primary Care Provider + Encounter Details Date Type Department Care Team (Late st Contact Info) Description 07/24/2024 Lab Requisition [facility] - Main Lab [address] [facility] [place] [address] Yesy Schwartz MD [address] [facility] [address] [place] [address] Epilepsy, unspecified, not intractable, without status epilepticus (CMS/HCC); Type 2 diabetes mellitus with other circulatory complications (CMS/HCC); Type 2 diabetes mellitus without complications (CMS/HCC) Social History Tobacco Use Types Packs/Day Years Used Date Smoking Tobacco: Never Assessed Sex and Gender Information Value Date Recorded Sex Assigned at Not on file Legal Sex Male 12:58 AM EST Gender Identity Not on file Sexual Orientation Not on file documented as of this encounter Plan of Treatment Not on file documented as of this encounter Procedures Procedure Name Priority Date/Time Associated Diagnosis Comments CBC WITH AUTO DIFFERENTIAL Routine 07/24/2024 5:25 AM EST Epilepsy, unspecified, not intractable, without status epilepticus (CMS/HCC) Type 2 diabetes mellitus with other circulatory complications (CMS/HCC) Type 2 diabetes mellitus without complications (CMS/HCC) LEVETIRACETAM LEVEL Routine 07/24/2024 5 :25 AM EST Epilepsy, unspecified, not intractable, without status epilepticus (CMS/HCC) Type 2 diabetes mellitus with other circulatory complications (CMS/HCC) Type 2 diabetes mellitus without complications (CMS/HCC) CBC AND DIFFERENTIAL Routine 07/24/2024 5:25 AM EST Epilepsy, unspecified, not intractable, without status epilepticus (CMS/HCC) Type 2 diabetes mellitus with other circulatory complications (CMS/HCC) Type 2 diabetes mellitus without complications (CMS/HCC) BASIC METABOLIC PANEL Routine 07/24/2024 5:25 AM EST Epilepsy, unspecified, not intractable, without status epilepticus (CMS/HCC) Type 2 diabetes mellitus with other circulatory complications (CMS/HCC) Type 2 diabetes mellitus without complications (CMS/HCC) documented in this encounter Results * CBC auto differential (07/24/2024 5:25 AM EST) Pathologist [facility] WBC 7.4 4.8 - 10.8 K/mcL LAB HEMETOLOGY METHOD 07/24/2024 10:30 AM [facility] RBC 5.20 4.50 - 5.50 M/mcL LAB HEMETOLOGY METHOD 07/24/2024 10:30 AM [facility] Hemoglobin 16.0 13.5 - 17.5 g/dL LAB HEMETOLOGY METHOD 07/24/2024 10:30 AM [facility] Hematocrit 47.2 42.0 - 54.0 % LAB HEMETOLOGY METHOD 07/24/2024 10:30 AM [facility] MCV 91.5 79.0 - 98.0 FL LAB HEMETOLOGY METHOD 07/24/2024 10:30 AM [facility] MCH 31.0 27.0 - 32.0 pcg LAB HEMETOLOGY METHOD 07/24/2024 10:30 AM [facility] MCHC 33.9 32.0 - 37.0 g/dL LAB HEMETOLOGY METHOD 07/24/2024 10:30 AM [facility] RDW 13.5 11.0 - 15.0 % LAB HEMETOLOGY METHOD 07/24/2024 10:30 AM [facility] Platelets 204 130 - 400 K/mcL LAB HEMETOLOGY METHOD 07/24/2024 10:30 AM [facility] MPV 10.8 7.0 - 11.0 FL LAB HEMETOLOGY METHOD 07/24/2024 10:30 AM [facility] NRBC 0.0 <1.0 % LAB HEMETOLOGY METHOD 07/24/2024 10:30 AM [facility] NRBC Absolute 0.00 <0.10 K/mcL LAB HEMETOLOGY METHOD 07/24/2024 10:30 AM [facility] Neutrophils Relative 45.1 % LAB HEMETOLOGY METHOD 07/24/2024 10:30 AM [facility] Lymphocytes Relative 39.9 % LAB HEMETOLOGY METHOD 07/24/2024 10:30 AM [facility] Monocytes Relative 7.9 % LAB HEMETOLOGY METHOD 07/24/2024 10:30 AM [facility] Eosinophils Relative 5.7 % LAB HEMETOLOGY METHOD 07/24/2024 10:30 AM [facility] Basophils Relative 1.0 % LAB HEMETOLOGY METHOD 07/24/2024 10:30 AM [facility] Immature Granulocytes Relative 0.4 % LAB HEMETOLOGY METHOD 07/24/2024 10:30 AM [facility] Neutrophils Absolute 3.32 1.50 - 7.00 K/mcL LAB HEMETOLOGY METHOD 07/24/2024 10:30 AM [facility] Lymphocytes Absolute 2.93 1.00 - 5.00 K/mcL LAB HEMETOLOGY METHOD 07/24/2024 10:30 AM [facility] Monocytes Absolute 0.58 0.20 - 1.00 K/mcL LAB HEMETOLOGY METHOD 07/24/2024 10:30 AM [facility] Eosinophils Absolute 0.42 0.00 - 0.50 K/mcL LAB HEMETOLOGY METHOD 07/24/2024 10:30 AM [facility] Basophils Absolute 0.07 0.00 - 0.20 K/mcL LAB HEMETOLOGY METHOD 07/24/2024 10:30 AM EST [facility] Immature Granulocytes Absolute 0.03 0.00 - 0.03 K/[facility] LAB HEMETOLOGY METHOD 07/24/2024 10:30 AM EST [facility] Blood Venous blood specimen / Unknown Venipuncture / Unknown 07/24/2024 5:25 AM EST 07/24/2024 9:23 AM EST us Yesy Schwartz MD LAB BLOOD ORDERABLES Fin al Result [facility] [address] [place] [address], [place] [phone] * (ABNORMAL) Basic metabolic panel (07/24/2024 5:25 AM EST) Sodium 138 133 - 145 mmol/L LAB CHEMISTRY METHOD 07/24/2024 10:43 AM [facility] Potassium 4.6 3.5 - 5.5 mmol/L LAB CHEMISTRY METHOD 07/24/2024 10:43 AM [facility] Chloride 105 96 - 110 mmol/L LAB CHEMISTRY METHOD 07/24/2024 10:43 AM [facility] CO2 31 21 - 32 mmol/L LAB CHEMISTRY METHOD 07/24/2024 10:43 AM [facility] Anion Gap 2(L) 3 - 11 LAB CHEMISTRY METHOD 07/24/2024 10:43 AM [facility] Glucose 108(H) 70 - 100 mg/dL LAB CHEMISTRY METHOD 07/24/2024 10:43 AM [facility] BUN 9 5 - 25 mg/dL LAB CHEMISTRY METHOD 07/24/2024 10:43 AM [facility] Creatinine 0.71 0.70 - 1.30 mg/dL LAB CHEMISTRY METHOD 07/24/2024 10:43 AM EST [facility] eGFR 93 >=60 mL/min/1. 73m2 LAB CHEMISTRY METHOD 07/24/2024 10:43 AM EST [facility] Comment:Calculation based on the??Chronic Kidney Disease Epidemiology Collaboration (CKD-EPI) equation refit??without adjustment for race. BUN/Creatinine Ratio 12.7 LAB CHEMISTRY METHOD 07/24/2024 10:43 AM EST [facility] Calcium 8.7 8.5 - 10.5 mg/dL LAB CHEMISTRY METHOD 07/24/2024 10:43 AM EST [facility] Blood Venous blood specimen / Unknown Venipuncture / Unknown 07/24/2024 5:25 AM EST 07/24/2024 9:23 AM EST Yesy Schwartz MD LAB BLOOD ORDERABLES Fin al Result [facility] [address] [place] [address], * Levetiracetam level (07/24/2024 5:25 AM EST) Levetiracetam <1.0 3.0 - 60.0 ug/mL 07/27/2024 6:19 AM EST [facility] Comment: Steady state trough serum or plasma levels following doses of 1000 to 3000 mg/Day: ??3 to 37 ug/mL. The same dosage regimen will typically result in peak levels of 10 to 60 ug/mL, at approximately 1.5 hours post dose. If applicable, any drug confirmation testing reported here was developed and the performance characteristics determined by [facility]. This confirmation testing has not been cleared or approved by the FDA. The laboratory is regulated under CLIA as qualified to perform high-complexity testing. This test is used for patient testing purposes. It should not be regarded as investigational or for research. Test performed at [facility], [address] , [place], [place] ??[address] ? [phone] Alma Berrios MD, PhD - [employer]ill Press Operator Blood Venous blood specimen / Unknown Venipuncture / Unknown 07/24/2024 5:25 AM EST 07/24/2024 9:23 AM EST us Yesy Schwartz MD LAB BLOOD ORDERABLES Fin al Result [facility] [address] [place] [address] documented in this encounter Visit Diagnoses Diagnosis Epilepsy, unspecified, not intractable, without status epilepticus (CMS/HCC) Type 2 diabetes mellitus with other circulatory complications (CMS/HCC) Type 2 diabetes mellitus without complications (CMS/HCC) documented in this encounter Care Teams Well Shooter Relationship Specialty Start Date End Date Yesy Schwartz MD [address] [address] PCP - General Family Medicine 07/21/24 documented as of this encounter
--- OUTSIDE RECORDS SUMMARY | 2024-09-05 13:50 | XMS_ITS | Encounter Summary ---
Author Organization [employer] Address [address] [place] [address] Care Team Providers Care Lucerne Farmer Name Role Phone Yesy Schwartz MD Primary Care Provider + Encounter Details Date Type Department Care Team (Late st Contact Info) Description 07/21/2024 Lab Requisition [facility] - Main Lab [address] [place] [address] Yesy Schwartz MD 819 [facility] 1 [place] [address] Type 2 diabetes mellitus without complications (CMS/HCC) [...] Diagnosis Comments CBC WITH AUTO DIFFERENTIAL Routine 07/21/2024 5:00 AM EST Type 2 diabetes mellitus without complications (CMS/HCC) CBC AND DIFFERENTIAL Routine 07/21/2024 5:00 AM EST Type 2 diabetes mellitus without complications (CMS/HCC) HEMOGLOBIN A1C Routine 07/21/2024 5:00 AM EST Type 2 diabetes mellitus without complications (CMS/HCC) COMPREHENSIVE METABOLIC PANEL Routine 07/21/2024 5:00 AM EST Type 2 diabetes mellitus without complications (CMS/HCC) documented in this encounter Results * (ABNORMAL) CBC auto differential (07/21/2024 5:00 AM EST) WBC 7.8 4.8 - 10.8 K/mcL LAB HEMETOLOGY METHOD 07/21/2024 10:04 AM [facility] RBC 5.00 4.50 - 5.50 M/mcL LAB HEMETOLOGY METHOD 07/21/2024 10:04 AM [facility] Hemoglobin 15.4 13.5 - 17.5 g/dL LAB HEMETOLOGY METHOD 07/21/2024 10:04 AM [facility] Hematocrit 45.2 42.0 - 54.0 % LAB HEMETOLOGY METHOD 07/21/2024 10:04 AM [facility] MCV 90.4 79.0 - 98.0 FL LAB HEMETOLOGY METHOD 07/21/2024 10:04 AM [facility] LAB MCH 30.8 27.0 - 32.0 pcg LAB HEMETOLOGY METHOD 07/21/2024 10:04 AM [facility] LAB MCHC 34.1 32.0 - 37.0 g/dL LAB HEMETOLOGY METHOD 07/21/2024 10:04 AM [facility] RDW 13.4 11.0 - 15.0 % LAB HEMETOLOGY METHOD 07/21/2024 10:04 AM [facility] Platelets 168 130 - 400 K/mcL LAB HEMETOLOGY METHOD 07/21/2024 10:04 AM [facility] MPV 11.2(H) 7.0 - 11.0 FL LAB HEMETOLOGY METHOD 07/21/2024 10:04 AM [facility] LAB NRBC 0.0 <1.0 % LAB HEMETOLOGY METHOD 07/21/2024 10:04 AM [facility] LAB NRBC Absolute 0.00 <0.10 K/mcL LAB HEMETOLOGY METHOD 07/21/2024 10:04 AM [facility] Neutrophils Relative 47.2 % LAB HEMETOLOGY METHOD 07/21/2024 10:04 AM [facility] Lymphocytes Relative 37.8 % LAB HEMETOLOGY METHOD 07/21/2024 10:04 AM [facility] Monocytes Relative 8.0 % LAB HEMETOLOGY METHOD 07/21/2024 10:04 AM [facility] Eosinophils Relative 5.9 % LAB HEMETOLOGY METHOD 07/21/2024 10:04 AM [facility] Basophils Relative 0.8 % LAB HEMETOLOGY METHOD 07/21/2024 10:04 AM [facility] Immature Granulocytes Relative 0.3 % LAB HEMETOLOGY METHOD 07/21/2024 10:04 AM [facility] Neutrophils Absolute 3.67 1.50 - 7.00 K/mcL LAB HEMETOLOGY METHOD 07/21/2024 10:04 AM [facility] Lymphocytes Absolute 2.93 1.00 - 5.00 K/mcL LAB HEMETOLOGY METHOD 07/21/2024 10:04 AM [facility] Monocytes Absolute 0.62 0.20 - 1.00 K/mcL LAB HEMETOLOGY METHOD 07/21/2024 10:04 AM [facility] Eosinophils Absolute 0.46 0.00 - 0.50 K/mcL LAB HEMETOLOGY METHOD 07/21/2024 10:04 AM [facility] Basophils Absolute 0.06 0.00 - 0.20 K/mcL LAB HEMETOLOGY METHOD 07/21/2024 10:04 AM [facility] Immature Granulocytes Absolute 0.02 0.00 - 0.03 K/mcL LAB HEMETOLOGY METHOD 07/21/2024 10:04 AM [facility] Blood Venous blood specimen / Unknown Venipuncture / Unknown 07/21/2024 5:00 AM EST 07/21/2024 8:49 AM EST Yesy Schwartz MD LAB BLOOD ORDERABLES Fin al Result [facility] [address] [place] [address], [place] [phone] * (ABNORMAL) Hemoglobin A1c (07/21/2024 5:00 AM EST) Pathologist [facility] Hemoglobin A1C 8.8(H) <6.5 % LAB CHEMISTRY METHOD 07/21/2024 11:54 AM EST [facility] Mean Bld Glu Estim. 206 mg/dL LAB CHEMISTRY METHOD 07/21/2024 11:54 AM [facility] Blood Venous blood specimen / Unknown Venipuncture / Unknown 07/21/2024 5:00 AM EST 07/21/2024 8:49 AM EST Yesy Schwartz MD LAB BLOOD ORDERABLES Fin al Result Performing Organization Address City/[facility]/ZIP Co de Phone Number [facility] [address] [place] [address], [place] [phone] * (ABNORMAL) Comprehensive metabolic panel (07/21/2024 5:00 AM EST) [facility] Sodium 137 133 - 145 mmol/L LAB CHEMISTRY METHOD 07/21/2024 11:36 AM [facility] Potassium 4.8 3.5 - 5.5 mmol/L LAB CHEMISTRY METHOD 07/21/2024 11:36 AM [facility] Chloride 104 96 - 110 mmol/L LAB CHEMISTRY METHOD 07/21/2024 11:36 AM [facility] CO2 28 21 - 32 mmol/L LAB CHEMISTRY METHOD 07/21/2024 11:36 AM [facility] Anion Gap 5 3 - 11 LAB CHEMISTRY METHOD 07/21/2024 11:36 AM [facility] Glucose 116(H) 70 - 100 mg/dL LAB CHEMISTRY METHOD 07/21/2024 11:36 AM [facility] BUN 8 5 - 25 mg/dL LAB CHEMISTRY METHOD 07/21/2024 11:36 AM [facility] Creatinine 0.70 0.70 - 1.30 mg/dL LAB CHEMISTRY METHOD 07/21/2024 11:36 AM [facility] eGFR 94 >=60 mL/min/1. 73m2 LAB CHEMISTRY METHOD 07/21/2024 11:36 AM [facility] Comment:Calculation based on the??Chronic Kidney Disease Epidemiology Collaboration (CKD-EPI) equation refit??without adjustment for race. BUN/Creatinine Ratio 11.4 LAB CHEMISTRY METHOD 07/21/2024 11:36 AM [facility] Calcium 8.6 8.5 - 10.5 mg/dL LAB CHEMISTRY METHOD 07/21/2024 11:36 AM [facility] AST (SGOT) 34 10 - 42 unit/L LAB CHEMISTRY METHOD 07/21/2024 11:36 AM [facility] ALT (SGPT) 32 10 - 60 unit/L LAB CHEMISTRY METHOD 07/21/2024 11:36 AM [facility] Alkaline Phosphatase 154(H) 42 - 121 unit/L LAB CHEMISTRY METHOD 07/21/2024 11:36 AM [facility] Total Protein 6.6 6.0 - 8.0 g/dL LAB CHEMISTRY METHOD 07/21/2024 11:36 AM [facility] Albumin 3.3 3.2 - 5.0 g/dL LAB CHEMISTRY METHOD 07/21/2024 11:36 AM [facility] Total Bilirubin 1.5(H) 0.0 - 1.4 mg/dL LAB CHEMISTRY METHOD 07/21/2024 11:36 AM [facility] Blood Venous blood specimen / Unknown Venipuncture / Unknown 07/21/2024 5:00 AM EST 07/21/2024 8:49 AM EST us Yesy Schwartz MD LAB BLOOD ORDERABLES Fin al Result [facility] [address] [place] [address], documented in this encounter Visit Diagnoses Diagnosis Type 2 diabetes mellitus without complications (CMS/HCC) documented in this encounter Care Teams Lucerne Farmer Relationship Specialty Start Date End Date Yesy Schwartz MD [address] [place] [id number] PCP - General Family Medicine 07/21/24 documented as of this encounter
--- OUTSIDE RECORDS SUMMARY | 2024-09-05 13:50 | XMS_ITS | Encounter Summary ---
Author Organization [employer] Address [address] [place] [address] Care Team Providers Care Print Developer Automatic Name Role Phone Yesy Schwartz MD Primary Care Provider + Encounter Details Date Type Department Care Team (Late st Contact Info) Description 05/20/2024 Lab Requisition [facility] - Main Lab [address] [facility] [place] [address] Yesy Schwartz MD 819 [facility] 1 [place] [address] Type 2 diabetes mellitus without complications (CMS/HCC); Unspecified convulsions (CMS/HCC); Essential (primary) hypertension Social History Tobacco Use Types Packs/Day Years [...] Procedure Name Priority Date/Time Associated Diagnosis Comments COMPLETE BLOOD COUNT Routine 05/21/2024 7:26 AM EST Unspecified convulsions (CMS/HCC) Essential (primary) hypertension Type 2 diabetes mellitus without complications (CMS/HCC) HEMOGLOBIN A1C Routine 05/21/2024 7:26 AM EST Unspecified convulsions (CMS/HCC) Essential (primary) hypertension Type 2 diabetes mellitus without complications (CMS/HCC) COMPREHENSIVE METABOLIC PANEL Routine 05/21/2024 7:26 AM EST Unspecified convulsions (CMS/HCC) Essential (primary) hypertension Type 2 diabetes mellitus without complications (CMS/HCC) documented in this encounter Results * (ABNORMAL) Hemoglobin A1c (05/21/2024 7:26 AM EST) Pathologist [facility] Hemoglobin A1C 7.7(H) <6.5 % LAB CHEMISTRY METHOD 05/21/2024 2:23 PM [facility] Mean Bld Glu Estim. 174 mg/dL LAB CHEMISTRY METHOD 05/21/2024 2:23 PM [facility] Blood Venous blood specimen / Unknown Venipuncture / Unknown 05/21/2024 7:26 AM EST 05/21/2024 9:48 AM EST us Yesy Schwartz MD LAB BLOOD ORDERABLES Fin al Result [facility] [address] [place] [address], * (ABNORMAL) Comprehensive metabolic panel (05/21/2024 7:26 AM EST) [facility] Sodium 142 133 - 145 mmol/L LAB CHEMISTRY METHOD 05/21/2024 11:08 AM [facility] Potassium 3.7 3.5 - 5.5 mmol/L LAB CHEMISTRY METHOD 05/21/2024 11:08 AM [facility] Chloride 107 96 - 110 mmol/L LAB CHEMISTRY METHOD 05/21/2024 11:08 AM [facility] CO2 29 21 - 32 mmol/L LAB CHEMISTRY METHOD 05/21/2024 11:08 AM [facility] Anion Gap 6 3 - 11 LAB CHEMISTRY METHOD 05/21/2024 11:08 AM [facility] Glucose 141(H) 70 - 100 mg/dL LAB CHEMISTRY METHOD 05/21/2024 11:08 AM [facility] BUN 7 5 - 25 mg/dL LAB CHEMISTRY METHOD 05/21/2024 11:08 AM [facility] Creatinine 0.86 0.70 - 1.30 mg/dL LAB CHEMISTRY METHOD 05/21/2024 11:08 AM [facility] eGFR 89 >=60 mL/min/1. 73m2 LAB CHEMISTRY METHOD 05/21/2024 11:08 AM [facility] Comment:Calculation based on the??Chronic Kidney Disease Epidemiology Collaboration (CKD-EPI) equation refit??without adjustment for race. BUN/Creatinine Ratio 8.1 LAB CHEMISTRY METHOD 05/21/2024 11:08 AM [facility] Calcium 8.6 8.5 - 10.5 mg/dL LAB CHEMISTRY METHOD 05/21/2024 11:08 AM [facility] AST (SGOT) 38 10 - 42 unit/L LAB CHEMISTRY METHOD 05/21/2024 11:08 AM [facility] ALT (SGPT) 34 10 - 60 unit/L LAB CHEMISTRY METHOD 05/21/2024 11:08 AM [facility] Alkaline Phosphatase 144(H) 42 - 121 unit/L LAB CHEMISTRY METHOD 05/21/2024 11:08 AM [facility] Total Protein 6.4 6.0 - 8.0 g/dL LAB CHEMISTRY METHOD 05/21/2024 11:08 AM [facility] Albumin 3.2 3.2 - 5.0 g/dL LAB CHEMISTRY METHOD 05/21/2024 11:08 AM [facility] Total Bilirubin 1.8(H) 0.0 - 1.4 mg/dL LAB CHEMISTRY METHOD 05/21/2024 11:08 AM [facility] Blood Venous blood specimen / Unknown Venipuncture / Unknown 05/21/2024 7:26 AM EST 05/21/2024 9:48 AM EST us Yesy Schwartz MD LAB BLOOD ORDERABLES Fin al Result [facility] [address] [place] [address], * Complete blood count (05/21/2024 7:26 AM EST) [facility] WBC 7.3 4.8 - 10.8 K/mcL LAB HEMETOLOGY METHOD 05/21/2024 11:19 AM [facility] RBC 4.90 4.50 - 5.50 M/mcL LAB HEMETOLOGY METHOD 05/21/2024 11:19 AM [facility] Hemoglobin 15.0 13.5 - 17.5 g/dL LAB HEMETOLOGY METHOD 05/21/2024 11:19 AM [facility] Hematocrit 44.6 42.0 - 54.0 % LAB HEMETOLOGY METHOD 05/21/2024 11:19 AM [facility] MCV 91.4 79.0 - 98.0 FL LAB HEMETOLOGY METHOD 05/21/2024 11:19 AM [facility] MCH 30.7 27.0 - 32.0 pcg LAB HEMETOLOGY METHOD 05/21/2024 11:19 AM [facility] MCHC 33.6 32.0 - 37.0 g/dL LAB HEMETOLOGY METHOD 05/21/2024 11:19 AM [facility] RDW 13.4 11.0 - 15.0 % LAB HEMETOLOGY METHOD 05/21/2024 11:19 AM [facility] Platelets 182 130 - 400 K/[facility] LAB HEMETOLOGY METHOD 05/21/2024 11:19 AM [facility] MPV 10.2 7.0 - 11.0 FL LAB HEMETOLOGY METHOD 05/21/2024 11:19 AM [facility] NRBC 0.0 <1.0 % LAB HEMETOLOGY METHOD 05/21/2024 11:19 AM [facility] NRBC Absolute 0.00 <0.10 K/mcL LAB HEMETOLOGY METHOD 05/21/2024 11:19 AM [facility] Blood Venous blood specimen / Unknown Venipuncture / Unknown 05/21/2024 7:26 AM EST 05/21/2024 9:48 AM EST Yesy Schwartz MD LAB BLOOD ORDERABLES Fin al Result [facility] [address] [place] [address], documented in this encounter Visit Diagnoses Diagnosis Type 2 diabetes mellitus without complications (CMS/HCC) Unspecified convulsions (CMS/HCC) Essential (primary) hypertension Unspecified essential hypertension documented in this encounter Care Teams Print Developer Automatic Relationship Specialty Start Date End Date Yesy Schwartz MD [address] [address] PCP - General Family Medicine 07/21/24 documented as of this encounter
--- OUTSIDE RECORDS SUMMARY | 2024-09-05 13:50 | XMS_ITS | Encounter Summary ---
Author Organization [employer] Address [address] [place] [address] Care Team Providers Care Kicking Machine Operator Name Role Phone Yesy Schwartz MD Primary Care Provider + Encounter Details Date Type Department Care Team (Late st Contact Info) Description 08/24/2024 Lab Requisition [facility] - Main Lab [address] [place] [address] Yesy Schwartz MD 819 [facility] 1 [place] [address] Other fpc (current) drug therapy Social History Tobacco Use Types Packs/Day Years [...] Procedure Name Priority Date/Time Associated Diagnosis Comments LEVETIRACETAM LEVEL Routine 08/24/2024 1 0:13 AM EST Other intermediate teacher (current) drug therapy COMPLETE BLOOD COUNT Routine 08/24/2024 10:13 AM EST Other fpc (current) drug therapy BASIC METABOLIC PANEL Routine 08/24/2024 10:13 AM EST Other intermediate teacher (current) drug therapy documented in this encounter Results * Levetiracetam level (08/24/2024 10:13 AM EST) Levetiracetam <1.0 3.0 - 60.0 ug/mL 08/27/2024 6:32 AM EST [facility] Comment: Steady state trough serum or plasma levels following doses of 1000 to 3000 mg/Day: ??3 to 37 ug/mL. The same dosage regimen will typically result in peak levels of 10 to 60 ug/mL, at approximately 1.5 hours post dose. If applicable, any drug confirmation testing reported here was developed and the performance characteristics determined by [facility]. This confirmation testing has not been cleared or approved by the FDA. The laboratory is regulated under CLIA as qualified to perform high-complexity testing. This test is used for patient testing purposes. It should not be regarded as investigational or for research. Test performed at [facility], [address] , [place], [place] ??[address] ? [phone] Alma Berrios MD, PhD - Collision Repairer Blood Venous blood specimen / Unknown Venipuncture / Unknown 08/24/2024 10:13 AM EST 08/24/2024 11:35 AM EST Yesy Schwartz MD LAB BLOOD ORDERABLES [facility] al Result [facility] [address] [place] [address] * (ABNORMAL) Basic metabolic panel (08/24/2024 10:13 AM EST) Sodium 139 133 - 145 mmol/L LAB CHEMISTRY METHOD 08/24/2024 3:33 PM [facility] Potassium 4.0 3.5 - 5.5 mmol/L LAB CHEMISTRY METHOD 08/24/2024 3:33 PM [facility] Chloride 104 96 - 110 mmol/L LAB CHEMISTRY METHOD 08/24/2024 3:33 PM [facility] CO2 30 21 - 32 mmol/L LAB CHEMISTRY METHOD 08/24/2024 3:33 PM [facility] Anion Gap 5 3 - 11 LAB CHEMISTRY METHOD 08/24/2024 3:33 PM [facility] Glucose 253(H) 70 - 100 mg/dL LAB CHEMISTRY METHOD 08/24/2024 3:33 PM [facility] BUN 8 5 - 25 mg/dL LAB CHEMISTRY METHOD 08/24/2024 3:33 PM EST [facility] Creatinine 0.89 0.70 - 1.30 mg/dL LAB CHEMISTRY METHOD 08/24/2024 3:33 PM [facility] eGFR 87 >=60 mL/min/1. 73m2 LAB CHEMISTRY METHOD 08/24/2024 3:33 PM [facility] Comment:Calculation based on the??Chronic Kidney Disease Epidemiology Collaboration (CKD-EPI) equation refit??without adjustment for race. BUN/Creatinine Ratio 9.0 LAB CHEMISTRY METHOD 08/24/2024 3:33 PM [facility] Calcium 8.5 8.5 - 10.5 mg/dL LAB CHEMISTRY METHOD 08/24/2024 3:33 PM [facility] Blood Venous blood specimen / Unknown Venipuncture / Unknown 08/24/2024 10:13 AM EST 08/24/2024 11:35 AM EST us Yesy Schwartz MD LAB BLOOD ORDERABLES Fin al Result [facility] [address] [place] [address], * Complete blood count (08/24/2024 10:13 AM EST) WBC 6.2 4.8 - 10.8 K/mcL LAB HEMETOLOGY METHOD 08/24/2024 1:07 PM [facility] RBC 4.90 4.50 - 5.50 M/mcL LAB HEMETOLOGY METHOD 08/24/2024 1:07 PM [facility] Hemoglobin 15.3 13.5 - 17.5 g/dL LAB HEMETOLOGY METHOD 08/24/2024 1:07 PM [facility] Hematocrit 45.4 42.0 - 54.0 % LAB HEMETOLOGY METHOD 08/24/2024 1:07 PM EST [facility] MCV 91.9 79.0 - 98.0 FL LAB HEMETOLOGY METHOD 08/24/2024 1:07 PM [facility] MCH 31.0 27.0 - 32.0 pcg LAB HEMETOLOGY METHOD 08/24/2024 1:07 PM [facility] MCHC 33.7 32.0 - 37.0 g/dL LAB HEMETOLOGY METHOD 08/24/2024 1:07 PM EST [facility] RDW 13.5 11.0 - 15.0 % LAB HEMETOLOGY METHOD 08/24/2024 1:07 PM [facility] Platelets 184 130 - 400 K/mcL LAB HEMETOLOGY METHOD 08/24/2024 1:07 PM [facility] MPV 10.6 7.0 - 11.0 FL LAB HEMETOLOGY METHOD 08/24/2024 1:07 PM EST [facility] NRBC 0.0 <1.0 % LAB HEMETOLOGY METHOD 08/24/2024 1:07 PM [facility] NRBC Absolute 0.00 <0.10 K/mcL LAB HEMETOLOGY METHOD 08/24/2024 1:07 PM [facility] Blood Venous blood specimen / Unknown Venipuncture / Unknown 08/24/2024 10:13 AM EST 08/24/2024 11:35 AM EST us Yesy Schwartz MD LAB BLOOD ORDERABLES Fin al Result [facility] [address] [place] [address], documented in this encounter Visit Diagnoses Diagnosis Other fpc (current) drug therapy documented in this encounter Care Teams Kicking Machine Operator Relationship Specialty Start Date End Date Yesy Schwartz MD NPI: [id number] [place], [place] [id number] PCP - General Family Medicine 07/21/24 documented as of this encounter
--- OUTSIDE RECORDS SUMMARY | 2024-09-05 13:50 | XMS_ITS | Encounter Summary ---
Author Organization [facility] Address [address] [place] [address] Care Team Providers Care Steno Typist Name Role Phone Yesy Schwartz MD Primary Care Provider + Encounter Details Date Type Department Care Team (Late st Contact Info) Description 08/18/2024 Lab Requisition [facility] - Main Lab [address] [place] [address] Yesy Schwartz MD [address] [address] Other mcc (current) drug therapy Social History Tobacco Use [...] Procedure Name Priority Date/Time Associated Diagnosis Comments BASIC METABOLIC PANEL Routine 08/19/2024 7:34 AM EST Other terminal operations supervisor (current) drug therapy documented in this encounter Results * (ABNORMAL) Basic metabolic panel (08/19/2024 7:34 AM EST) Sodium 138 133 - 145 mmol/L LAB CHEMISTRY METHOD 08/19/2024 11:08 AM EST [facility] Potassium 3.8 3.5 - 5.5 mmol/L LAB CHEMISTRY METHOD 08/19/2024 11:08 AM EST [facility] Chloride 106 96 - 110 mmol/L LAB CHEMISTRY METHOD 08/19/2024 11:08 AM EST [facility] CO2 28 21 - 32 mmol/L LAB CHEMISTRY METHOD 08/19/2024 11:08 AM EST [facility] Anion Gap 4 3 - 11 LAB CHEMISTRY METHOD 08/19/2024 11:08 AM [facility] Glucose 153(H) 70 - 100 mg/dL LAB CHEMISTRY METHOD 08/19/2024 11:08 AM [facility] BUN 8 5 - 25 mg/dL LAB CHEMISTRY METHOD 08/19/2024 11:08 AM [facility] Creatinine 0.69(L) 0.70 - 1.30 mg/dL LAB CHEMISTRY METHOD 08/19/2024 11:08 AM [facility] eGFR 94 >=60 mL/min/1. 73m2 LAB CHEMISTRY METHOD 08/19/2024 11:08 AM [facility] Comment:Calculation based on the??Chronic Kidney Disease Epidemiology Collaboration (CKD-EPI) equation refit??without adjustment for race. BUN/Creatinine Ratio 11.6 LAB CHEMISTRY METHOD 08/19/2024 11:08 AM [facility] Calcium 8.5 8.5 - 10.5 mg/dL LAB CHEMISTRY METHOD 08/19/2024 11:08 AM [facility] Blood Venous blood specimen / Unknown Venipuncture / Unknown 08/19/2024 7:34 AM EST 08/19/2024 10:34 AM EST us Yesy Schwartz MD LAB BLOOD ORDERABLES Fin al Result [facility] [address] [place] [address], documented in this encounter Visit Diagnoses Diagnosis Other mcc (current) drug therapy documented in this encounter Care Teams Steno Typist Relationship Specialty Start Date End Date Yesy Schwartz MD [address] [place] [id number] PCP - General Family Medicine 07/21/24 documented as of this encounter
--- OUTSIDE RECORDS SUMMARY | 2024-09-05 13:50 | XMS_ITS | Encounter Summary ---
Author Organization [employer] Address [address] [place] [address] Care Team Providers Care Scaler Packer Name Role Phone Yesy Schwartz MD Primary Care Provider + Encounter Details Date Type Department Care Team (Late st Contact Info) Description 05/20/2024 Lab Requisition [facility] - Main Lab [address] [facility] [place] [address] Yesy Schwartz MD [address] [facility] 1 [place] [address] Essential (primary) hypertension Social History Tobacco Use [...] Procedure Name Priority Date/Time Associated Diagnosis Comments TRAVEL PHLEBOTOMY FEE Routine 05/20/2024 7:29 AM EST Essential (primary) hypertension COMPLETE BLOOD COUNT Routine 05/20/2024 7:29 AM EST Essential (primary) hypertension THYROID STIMULATING HORMONE Routine 05/20/2024 7:29 AM EST Essential (primary) hypertension COMPREHENSIVE METABOLIC PANEL Routine 05/20/2024 7:29 AM EST Essential (primary) hypertension documented in this encounter Results * Travel phlebotomy fee (05/20/2024 7:29 AM EST) [facility] TRAVEL PHLEBOTOMY FEE Completed 05/20/2024 11:01 AM EST [facility] ([facility] Blood Venous blood specimen / Unknown Venipuncture / Unknown 05/20/2024 7:29 AM EST 05/20/2024 10:36 AM EST Yesy Schwartz MD LAB BLOOD ORDERABLES Fin al Result Performing Organization Address [facility]/State/ZIP Co de Phone Number [facility] [address] [place] [address], [place] [phone] * Thyroid stimulating hormone (05/20/2024 7:29 AM EST) Pathologist [facility] TSH 1.92 0.40 - 4.00 mcIU/mL LAB CHEMISTRY METHOD 05/20/2024 11:56 AM [facility] Blood Venous blood specimen / Unknown Venipuncture / Unknown 05/20/2024 7:29 AM EST 05/20/2024 10:36 AM EST Yesy Schwartz MD LAB BLOOD ORDERABLES Fin al Result Performing Organization Address [facility]/ZIP Co de Phone Number [facility] [address] [place] [address], [place] [phone] * (ABNORMAL) Comprehensive metabolic panel (05/20/2024 7:29 AM EST) [facility] Sodium 139 133 - 145 mmol/L LAB CHEMISTRY METHOD 05/20/2024 11:52 AM [facility] Potassium 3.7 3.5 - 5.5 mmol/L LAB CHEMISTRY METHOD 05/20/2024 11:52 AM [facility] Chloride 105 96 - 110 mmol/L LAB CHEMISTRY METHOD 05/20/2024 11:52 AM [facility] CO2 29 21 - 32 mmol/L LAB CHEMISTRY METHOD 05/20/2024 11:52 AM [facility] Anion Gap 5 3 - 11 LAB CHEMISTRY METHOD 05/20/2024 11:52 AM [facility] Glucose 167(H) 70 - 100 mg/dL LAB CHEMISTRY METHOD 05/20/2024 11:52 AM [facility] BUN 8 5 - 25 mg/dL LAB CHEMISTRY METHOD 05/20/2024 11:52 AM [facility] Creatinine 0.88 0.70 - 1.30 mg/dL LAB CHEMISTRY METHOD 05/20/2024 11:52 AM [facility] eGFR 88 >=60 mL/min/1. 73m2 LAB CHEMISTRY METHOD 05/20/2024 11:52 AM [facility] Comment:Calculation based on the??Chronic Kidney Disease Epidemiology Collaboration (CKD-EPI) equation refit??without adjustment for race. BUN/Creatinine Ratio 9.1 LAB CHEMISTRY METHOD 05/20/2024 11:52 AM [facility] Calcium 8.7 8.5 - 10.5 mg/dL LAB CHEMISTRY METHOD 05/20/2024 11:52 AM [facility] AST (SGOT) 39 10 - 42 unit/L LAB CHEMISTRY METHOD 05/20/2024 11:52 AM [facility] ALT (SGPT) 36 10 - 60 unit/L LAB CHEMISTRY METHOD 05/20/2024 11:52 AM [facility] Alkaline Phosphatase 159(H) 42 - 121 unit/L LAB CHEMISTRY METHOD 05/20/2024 11:52 AM [facility] Total Protein 6.6 6.0 - 8.0 g/dL LAB CHEMISTRY METHOD 05/20/2024 11:52 AM [facility] Albumin 3.4 3.2 - 5.0 g/dL LAB CHEMISTRY METHOD 05/20/2024 11:52 AM [facility] Total Bilirubin 1.4 0.0 - 1.4 mg/dL LAB CHEMISTRY METHOD 05/20/2024 11:52 AM [facility] Blood Venous blood specimen / Unknown Venipuncture / Unknown 05/20/2024 7:29 AM EST 05/20/2024 10:36 AM EST us Yesy Schwartz MD LAB BLOOD ORDERABLES Fin al Result [facility] [address] [place] [address], * Complete blood count (05/20/2024 7:29 AM EST) WBC 8.6 4.8 - 10.8 K/mcL LAB HEMETOLOGY METHOD 05/20/2024 11:31 AM EST [facility] RBC 5.10 4.50 - 5.50 M/mcL LAB HEMETOLOGY METHOD 05/20/2024 11:31 AM [facility] Hemoglobin 15.7 13.5 - 17.5 g/dL LAB HEMETOLOGY METHOD 05/20/2024 11:31 AM [facility] Hematocrit 47.7 42.0 - 54.0 % LAB HEMETOLOGY METHOD 05/20/2024 11:31 AM [facility] MCV 92.8 79.0 - 98.0 FL LAB HEMETOLOGY METHOD 05/20/2024 11:31 AM [facility] MCH 30.5 27.0 - 32.0 pcg LAB HEMETOLOGY METHOD 05/20/2024 11:31 AM [facility] MCHC 32.9 32.0 - 37.0 g/dL LAB HEMETOLOGY METHOD 05/20/2024 11:31 AM [facility] RDW 13.3 11.0 - 15.0 % LAB HEMETOLOGY METHOD 05/20/2024 11:31 AM [facility] Platelets 198 130 - 400 K/mcL LAB HEMETOLOGY METHOD 05/20/2024 11:31 AM [facility] MPV 10.5 7.0 - 11.0 FL LAB HEMETOLOGY METHOD 05/20/2024 11:31 AM EST [facility] NRBC 0.0 <1.0 % LAB HEMETOLOGY METHOD 05/20/2024 11:31 AM EST [facility] NRBC Absolute 0.00 <0.10 K/mcL LAB HEMETOLOGY METHOD 05/20/2024 11:31 AM EST [facility] Blood Venous blood specimen / Unknown Venipuncture / Unknown 05/20/2024 7:29 AM EST 05/20/2024 10:36 AM EST us Yesy Schwartz MD LAB BLOOD ORDERABLES Fin al Result [facility] [address] [place] [address], [place] [phone] documented in this encounter Visit Diagnoses Diagnosis Essential (primary) hypertension Unspecified essential hypertension documented in this encounter Care Teams Scaler Packer Relationship Specialty Start Date End Date Yesy Schwartz MD [address] [address] PCP - General Family Medicine 07/21/24 documented as of this encounter
--- OUTSIDE RECORDS SUMMARY | 2024-09-05 13:50 | XMS_ITS | Clinical Summary ---
Author Organization 299 [facility] Address [address] [place] [address] Phone Care Team Providers Care Chemical Laboratory Assistant Name Role Phone Yesy Schwartz MD Primary Care Provider + Encounters Date Type Department Care Team Description 08/24/[address] [facility] [address] [place] [phone] Yesy Schwartz MD Other terminal make up operator (current) drug therapy 08/18/[address] [facility] [address] [place] [phone] Yesy Schwartz MD Other senior care (current) drug therapy 07/24/[address] [facility] [address] [place] [phone] Yesy Schwartz MD Epilepsy, unspecified, not intractable, without status epilepticus (CMS/HCC); Type 2 diabetes mellitus with other circulatory complications (CMS/HCC); Type 2 diabetes mellitus without complications (CMS/HCC) 07/21/[address] [facility] [address] [place] [phone] Yesy Schwartz MD Type 2 diabetes mellitus without complications (CMS/HCC) from Last 3 Months Social History Tobacco Use Types Packs/Day Years Used Date Smoking Tobacco: Never Assessed Sex and Gender Information Value Date Recorded Sex Assigned at Not on file Legal Sex Male 12:58 AM EST Gender Identity Not on file Sexual Orientation Not on file Plan of Treatment Health Maintenance Due Date Last Done Comments Diabetes: Annual Foot Exam 1955 Diabetes: Annual Retina Eye Exam 1955 DTaP,Tdap,and Td Vaccines (1 - Tdap) 1964 Pneumococcal Vaccine: 50+ Years (1 of 2 - PCV) 1964 Zoster Vaccines (1 of 2) 1995 RSV Immunization Patients 60+ Years Old (1 - 1-dose 75+ series) 2020 Cholesterol Screening (Lipid Panel) 06/17/2022 Depression Screening 06/17/2022 Falls Risk Assessment 06/17/2022 Hepatitis C Screening 06/17/2022 Medicare Annual Wellness Visit 06/17/2022 Social Influencers of Health Screening 06/17/2022 COVID-19 Vaccine ( - season) 2024 Influenza Vaccine (#1) 2024 Diabetes: Annual Urine Albumin-Creatinine Ratio (uACR) 05/21/2024 Diabetes: Blood Sugar Control Test (HGBA1C) 01/18/2025 07/21/2024, 05/21/2024 Diabetes: Annual GFR (Glomerular Filtration Rate) 08/24/2025 08/24/2024, 08/19/2024, 07/24/2024, Additional history exists Hypertension/CHF/CAD Annual BMP Blood Test 08/24/2025 08/24/2024, 08/19/2024, 07/24/2024, Additional history exists HIB Vaccines Aged Out No longer eligi ble based on patient's age to complete this topic HPV Vaccines Aged Out No longer eligi ble based on patient's age to complete this topic Hepatitis A Vaccines Aged Out No long er eligible based on patient's age to complete this topic Hepatitis B Vaccines Aged Out No long er eligible based on patient's age to complete this topic IPV Vaccines Aged Out No longer eligi ble based on patient's age to complete this topic MMR Vaccines Aged Out No longer eligi ble based on patient's age to complete this topic Meningococcal ACWY Vaccine Aged Out N o longer eligible based on patient's age to complete this topic Meningococcal B Vacine Aged Out No lo nger eligible based on patient's age to complete this topic RSV Immunization Patients Under 20 months Aged Out No longer eligible based on patient's age to complete this topic Varicella Vaccines Aged Out No longer eligible based on patient's age to complete this topic Procedures Procedure Name Priority Date/Time Associated Diagnosis Comments LEVETIRACETAM LEVEL Routine 08/24/2024 1 0:13 AM EST Other senior care (current) drug therapy BASIC METABOLIC PANEL Routine 08/24/2024 10:13 AM EST Other terminal make up operator (current) drug therapy COMPLETE BLOOD COUNT Routine 08/24/2024 10:13 AM EST Other terminal make up operator (current) drug therapy BASIC METABOLIC PANEL Routine 08/19/2024 7:34 AM EST Other senior care (current) drug therapy CBC WITH AUTO DIFFERENTIAL Routine 07/24/2024 5:25 [...] 2 diabetes mellitus without complications (CMS/HCC) CBC WITH AUTO DIFFERENTIAL Routine 07/21/2024 5:00 AM EST Type 2 diabetes mellitus without complications (CMS/HCC) HEMOGLOBIN A1C Routine 07/21/2024 5:00 AM EST Type 2 diabetes mellitus without complications (CMS/HCC) COMPREHENSIVE METABOLIC PANEL Routine 07/21/2024 5:00 AM EST Type 2 diabetes mellitus without complications (CMS/HCC) CBC AND DIFFERENTIAL Routine 07/21/2024 5:00 AM EST Type 2 diabetes mellitus without complications (CMS/HCC) from Last 3 Months Results * Levetiracetam level (08/24/2024 10:13 AM EST) Only the most recent of2 resultswithin the time period is included. Levetiracetam <1.0 3.0 - 60.0 ug/mL 08/27/2024 6:32 AM EST [facility] Comment: Steady state trough serum or plasma levels following doses of 1000 to 3000 mg/Day: ??3 to 37 ug/mL. The same dosage regimen will typically result in peak levels of 10 to 60 ug/mL, at approximately 1.5 hours post dose. If applicable, any drug confirmation testing reported here was developed and the performance characteristics determined by [facility]. This confirmation testing has not been cleared or approved by the FDA. The laboratory is regulated under CLIA as qualified to perform high-complexity testing. This test is used for patient testing purposes. It should not be regarded as investigational or for research. Test performed at [facility], [address] , [place], [place] ??[address] ? [phone] Alma Berrios MD, PhD - Oral And Maxillofacial Surgery Resident Blood Venous blood specimen / Unknown Venipuncture / Unknown 08/24/2024 10:13 AM EST 08/24/2024 11:35 AM EST us Yesy Schwartz MD LAB BLOOD ORDERABLES Fin al Result [facility] [address] [place] [address] * Complete blood count (08/24/2024 10:13 AM EST) WBC 6.2 4.8 - 10.8 K/[facility] LAB HEMETOLOGY METHOD 08/24/2024 1:07 PM EST [facility] RBC 4.90 4.50 - 5.50 M/mcL LAB HEMETOLOGY METHOD 08/24/2024 1:07 PM [facility] Hemoglobin 15.3 13.5 - 17.5 g/dL LAB HEMETOLOGY METHOD 08/24/2024 1:07 PM [facility] Hematocrit 45.4 42.0 - 54.0 % LAB HEMETOLOGY METHOD 08/24/2024 1:07 PM [facility] MCV 91.9 79.0 - 98.0 FL LAB HEMETOLOGY METHOD 08/24/2024 1:07 PM [facility] MCH 31.0 27.0 - 32.0 pcg LAB HEMETOLOGY METHOD 08/24/2024 1:07 PM [facility] MCHC 33.7 32.0 - 37.0 g/dL LAB HEMETOLOGY METHOD 08/24/2024 1:07 PM [facility] RDW 13.5 11.0 - 15.0 % LAB HEMETOLOGY METHOD 08/24/2024 1:07 PM [facility] Platelets 184 130 - 400 K/mcL LAB HEMETOLOGY METHOD 08/24/2024 1:07 PM [facility] MPV 10.6 7.0 - 11.0 FL LAB HEMETOLOGY METHOD 08/24/2024 1:07 PM [facility] NRBC 0.0 <1.0 % LAB HEMETOLOGY METHOD 08/24/2024 1:07 PM [facility] NRBC Absolute 0.00 <0.10 K/mcL LAB HEMETOLOGY METHOD 08/24/2024 1:07 PM [facility] Blood Venous blood specimen / Unknown Venipuncture / Unknown 08/24/2024 10:13 AM EST 08/24/2024 11:35 AM EST Yesy Schwartz MD LAB BLOOD ORDERABLES Fin al Result [facility] [address] [place] [address], * (ABNORMAL) Basic metabolic panel (08/24/2024 10:13 AM EST) Only the most recent of3 resultswithin the time period is included. Sodium 139 133 - 145 mmol/L LAB CHEMISTRY METHOD 08/24/2024 3:33 PM [facility] Potassium 4.0 3.5 - 5.5 mmol/L LAB CHEMISTRY METHOD 08/24/2024 3:33 PM [facility] Chloride 104 96 - 110 mmol/L LAB CHEMISTRY METHOD 08/24/2024 3:33 PM [facility] CO2 30 21 - 32 mmol/L LAB CHEMISTRY METHOD 08/24/2024 3:33 PM [facility] Anion Gap 5 3 - 11 LAB CHEMISTRY METHOD 08/24/2024 3:33 PM [facility] Glucose 253(H) 70 - 100 mg/dL LAB CHEMISTRY METHOD 08/24/2024 3:33 PM [facility] BUN 8 5 - 25 mg/dL LAB CHEMISTRY METHOD 08/24/2024 3:33 PM [facility] Creatinine 0.89 0.70 - 1.30 mg/dL LAB CHEMISTRY METHOD 08/24/2024 3:33 PM [facility] eGFR 87 >=60 mL/min/1. 73m2 LAB CHEMISTRY METHOD 08/24/2024 3:33 PM [facility] Comment:Calculation based on the??Chronic Kidney Disease Epidemiology Collaboration (CKD-EPI) equation refit??without adjustment for race. BUN/Creatinine Ratio 9.0 LAB CHEMISTRY METHOD 08/24/2024 3:33 PM [facility] Calcium 8.5 8.5 - 10.5 mg/dL LAB CHEMISTRY METHOD 08/24/2024 3:33 PM [facility] Blood Venous blood specimen / Unknown Venipuncture / Unknown 08/24/2024 10:13 AM EST 08/24/2024 11:35 AM EST us Yesy Schwartz MD LAB BLOOD ORDERABLES Fin al Result [facility] [address] [place] [address], * CBC auto differential (07/24/2024 5:25 AM EST) Only the most recent of2 resultswithin the time period is included. WBC 7.4 4.8 - 10.8 K/mcL LAB HEMETOLOGY METHOD 07/24/2024 10:30 AM [facility] RBC 5.20 4.50 - 5.50 M/mcL LAB HEMETOLOGY METHOD 07/24/2024 10:30 AM [facility] Hemoglobin 16.0 13.5 - 17.5 g/dL LAB HEMETOLOGY METHOD 07/24/2024 10:30 AM [facility] Hematocrit 47.2 42.0 - 54.0 % LAB HEMETOLOGY METHOD 07/24/2024 10:30 AM [facility] MCV 91.5 79.0 - 98.0 FL LAB HEMETOLOGY METHOD 07/24/2024 10:30 AM [facility] MCH 31.0 27.0 - 32.0 pcg LAB HEMETOLOGY METHOD 07/24/2024 10:30 AM [facility] MCHC 33.9 32.0 - 37.0 g/dL LAB HEMETOLOGY METHOD 07/24/2024 10:30 AM [facility] RDW 13.5 11.0 - 15.0 % LAB HEMETOLOGY METHOD 07/24/2024 10:30 AM [facility] Platelets 204 130 - 400 K/mcL LAB HEMETOLOGY METHOD 07/24/2024 10:30 AM [facility] MPV 10.8 7.0 - 11.0 FL LAB HEMETOLOGY METHOD 07/24/2024 10:30 AM [facility] NRBC 0.0 <1.0 % LAB HEMETOLOGY METHOD 07/24/2024 10:30 AM [facility] NRBC Absolute 0.00 <0.10 K/mcL LAB HEMETOLOGY METHOD 07/24/2024 10:30 AM [facility] Neutrophils Relative 45.1 % LAB HEMETOLOGY METHOD 07/24/2024 10:30 AM [facility] Lymphocytes Relative 39.9 % LAB HEMETOLOGY METHOD 07/24/2024 10:30 AM [facility] Monocytes Relative 7.9 % LAB HEMETOLOGY METHOD 07/24/2024 10:30 AM [facility] Eosinophils Relative 5.7 % LAB HEMETOLOGY METHOD 07/24/2024 10:30 AM [facility] Basophils Relative 1.0 % LAB HEMETOLOGY METHOD 07/24/2024 10:30 AM [facility] Immature Granulocytes Relative 0.4 % LAB HEMETOLOGY METHOD 07/24/2024 10:30 AM [facility] Neutrophils Absolute 3.32 1.50 - 7.00 K/mcL LAB HEMETOLOGY METHOD 07/24/2024 10:30 AM [facility] Lymphocytes Absolute 2.93 1.00 - 5.00 K/mcL LAB HEMETOLOGY METHOD 07/24/2024 10:30 AM [facility] Monocytes Absolute 0.58 0.20 - 1.00 K/mcL LAB HEMETOLOGY METHOD 07/24/2024 10:30 AM [facility] Eosinophils Absolute 0.42 0.00 - 0.50 K/mcL LAB HEMETOLOGY METHOD 07/24/2024 10:30 AM EST [facility] Basophils Absolute 0.07 0.00 - 0.20 K/[facility] LAB HEMETOLOGY METHOD 07/24/2024 10:30 AM EST [facility] Immature Granulocytes Absolute 0.03 0.00 - 0.03 K/[facility] LAB HEMETOLOGY METHOD 07/24/2024 10:30 AM EST [facility] Blood Venous blood specimen / Unknown Venipuncture / Unknown 07/24/2024 5:25 AM EST 07/24/2024 9:23 AM EST Yesy Schwartz MD LAB BLOOD ORDERABLES Fin al Result Performing Organization Address [facility]/ZIP Co de Phone Number [facility] [address] [place] [address], * (ABNORMAL) Hemoglobin A1c (07/21/2024 5:00 AM EST) Hemoglobin A1C 8.8(H) <6.5 % LAB CHEMISTRY METHOD 07/21/2024 11:54 AM EST [facility] Mean Bld Glu Estim. 206 mg/dL LAB CHEMISTRY METHOD 07/21/2024 11:54 AM EST [facility] Blood Venous blood specimen / Unknown Venipuncture / Unknown 07/21/2024 5:00 AM EST 07/21/2024 8:49 AM EST Yesy Schwartz MD LAB BLOOD ORDERABLES Fin al Result Performing Organization Address City/[facility]/ZIP Co de Phone Number [facility] [address] [place] [address], [place] [phone] * (ABNORMAL) Comprehensive metabolic panel (07/21/2024 5:00 AM EST) Sodium 137 133 - 145 mmol/L LAB CHEMISTRY METHOD 07/21/2024 11:36 AM [facility] Potassium 4.8 3.5 - 5.5 mmol/L LAB CHEMISTRY METHOD 07/21/2024 11:36 AM [facility] Chloride 104 96 - 110 mmol/L LAB CHEMISTRY METHOD 07/21/2024 11:36 AM [facility] CO2 28 21 - 32 mmol/L LAB CHEMISTRY METHOD 07/21/2024 11:36 AM [facility] Anion Gap 5 3 - 11 LAB CHEMISTRY METHOD 07/21/2024 11:36 AM [facility] Glucose 116(H) 70 - 100 mg/dL LAB CHEMISTRY METHOD 07/21/2024 11:36 AM [facility] BUN 8 5 - 25 mg/dL LAB CHEMISTRY METHOD 07/21/2024 11:36 AM [facility] Creatinine 0.70 0.70 - 1.30 mg/dL LAB CHEMISTRY METHOD 07/21/2024 11:36 AM [facility] eGFR 94 >=60 mL/min/1. 73m2 LAB CHEMISTRY METHOD 07/21/2024 11:36 AM [facility] Comment:Calculation based on the??Chronic Kidney Disease Epidemiology Collaboration (CKD-EPI) equation refit??without adjustment for race. BUN/Creatinine Ratio 11.4 LAB CHEMISTRY METHOD 07/21/2024 11:36 AM [facility] Calcium 8.6 8.5 - 10.5 mg/dL LAB CHEMISTRY METHOD 07/21/2024 11:36 AM [facility] AST (SGOT) 34 10 - 42 unit/L LAB CHEMISTRY METHOD 07/21/2024 11:36 AM [facility] ALT (SGPT) 32 10 - 60 unit/L LAB CHEMISTRY METHOD 07/21/2024 11:36 AM [facility] Alkaline Phosphatase 154(H) 42 - 121 unit/L LAB CHEMISTRY METHOD 07/21/2024 11:36 AM EST [facility] Total Protein 6.6 6.0 - 8.0 g/dL LAB CHEMISTRY METHOD 07/21/2024 11:36 AM EST [facility] Albumin 3.3 3.2 - 5.0 g/dL LAB CHEMISTRY METHOD 07/21/2024 11:36 AM EST [facility] Total Bilirubin 1.5(H) 0.0 - 1.4 mg/dL LAB CHEMISTRY METHOD 07/21/2024 11:36 AM EST [facility] Blood Venous blood specimen / Unknown Venipuncture / Unknown 07/21/2024 5:00 AM EST 07/21/2024 8:49 AM EST us Yesy Schwartz MD LAB BLOOD ORDERABLES Fin al Result [facility] [address] [place] [address], from Last 3 Months Insurance MEDICAID - [place] MEDICARE Care Teams Chemical Laboratory Assistant Relationship Specialty Start Date End Date Yesy Schwartz MD [address] [place] [address] PCP - General Family Medicine 07/21/24
--- NOTE | 2024-09-05 13:53 | ECG_ITS ---
Test Reason : SEIZURES Blood Pressure : */* mmHG Vent. Rate : 75 BPM Atrial Rate : 75 BPM P-R Int : 292 ms QRS Dur : 92 ms QT Int : 396 ms P-R-T Axes : 73 -81 33 degrees QTcB Int : 442 ms Sinus rhythm with 1st degree A-V block Left axis deviation Inferior infarct , age undetermined Anterolateral infarct (cited on or before 09-Feb-2021) Abnormal ECG When compared with ECG of 23-Mar-2022 18:26, No significant change was found Referred By: Oswaldo Thornton Electronically Signed By: AMELIA MATHEW
--- NOTE | 2024-09-05 13:54 | ED_ITS ---
HPI - Seizure General Chief Complaint: Seizure Stated Complaint: SZ IN BED,POSTICTAL/COMBATIVE FROM SNF PER EMS Time Seen by Provider: 09/05/24 13:53 Source: EMS Mode of arrival: EMS Limitations: altered mental status History of Present Illness HPI Narrative: This is a 79 years old coming from nursing facility [facility] after an episode of seizure which was witnessed by the EMS, he was given a 4 mg IM Versed followed by 2 mg IV Versed he arrived to us postictal unable to give any history at this time. He has history of diabetes, alcohol abuse in the past, seizure disorder, dementia. I did speak with the nurse at the intermediate I was told that he has been taking off Keppra about 1 year ago because seizure free, per nurse at the intermediate seizure lasts for about 1 minute MD complaint: seizure Onset (ago): hour(s) (1 ) Description of Episode: tonic-clonic movement Witnessed: Yes - by EMS Trauma: No Seizure History: Yes Place: intermediate Possible Precipitating Event: none Related Data Home Medications ?Medication ?Instructions ?Recorded ?Confirmed acetaminophen 325 mg tablet 650 mg PO Q4H PRN PAIN OR TEMP 02/09/21 03/31/21 (Tylenol) >100F amlodipine 5 mg tablet 1 tab PO DAILY 02/09/21 03/31/21 aspirin 81 mg chewable tablet 81 mg PO DAILY 02/09/21 03/31/21 atorvastatin 80 mg tablet 1 tab PO DAILY 02/09/21 03/31/21 citalopram 20 mg tablet 1 tab PO DAILY 02/09/21 03/31/21 donepezil 5 mg tablet 1 tab PO BEDTIME 02/09/21 03/31/21 folic acid 1 mg tablet 1 mg PO DAILY 02/09/21 03/31/21 latanoprost 0.005 % eye drops 1 drp ophthalmic (eye) BEDTIME 02/09/21 03/31/21 magnesium hydroxide 400 mg/5 mL 30 ml PO BEDTIME PRN Constipation 02/09/21 03/31/21 oral suspension (Milk of Magnesia) melatonin 3 mg tablet 6 mg PO BEDTIME PRN Insomnia 02/09/21 03/31/21 multivitamin 1 tab PO DAILY 02/09/21 03/31/21 naltrexone 50 mg tablet 1 tab PO QAM 02/09/21 03/31/21 dextrose 40 % oral gel (Glucose 20 g PO Q15M PRN Hypoglycemia 03/31/21 03/31/21 Gel) Previous Rx's ?Medication ?Instructions ?Recorded thiamine HCl (vitamin B1) 100 mg 100 mg PO DAILY #30 tabs 02/13/21 tablet levetiracetam 500 mg tablet 500 mg PO BID #30 tabs 06/06/21 (Keppra) levetiracetam 500 mg tablet 500 mg PO BID #60 tabs 09/05/24 (Keppra) Allergies Allergy/AdvReac Type Severity Reaction Status Date / Time No Known Allergies Allergy Verified 09/05/24 13:34 Review of Systems 2 Review of Systems: Yes Unobtainable due to mental status [facility] Past Medical History [facility] Narrative: seizure/alcohol abuse in the past /cognitive impairement Medical History History of alcohol abuse MDD (major depressive disorder) Wernicke encephalopathy EtOH dependence Diabetes HTN (hypertension) Social History Social History Household Members: None Housing: Assisted Living Facility Unable to assess alcohol history related to: Unable to respond Alcohol intake: never Comment: 1:1 sitter Patient Tobacco Use Status: Tobacco use Unknown Advance Directives: Yes Advance Directives on File: Yes Advance Directives Date on File: 02/09/21 Current occupational status: retired Physical Exam 2 Vital Signs: Vital Signs: Last Vital Signs Temp 98.6 F 09/05/24 13:31 Pulse 78 09/05/24 16:52 Resp 14 09/05/24 16:52 BP 108/75 09/05/24 16:52 Pulse Ox 94 09/05/24 16:52 O2 Del Method Room Air 09/05/24 16:52 Oxygen Flow Rate 2 09/05/24 13:31 BMI result Body Mass Index 29.4 Patient is now postictal, received benzodiazepine prior to the arrival Const: Other: Lethargic Nutritional Appearance: average body habitus HEENT: Other: No evidence of trauma Neck: Other: Supple neck Neck: Yes full ROM Chest: Chest palpation & inspection: normal inspection of the chest Resp: Effort & Inspection: normal respiratory effort Auscultation: clear to auscultation bilaterally Cardio: Jugular venous distension: no JVD Rate: regular rate Rhythm: r egular rhythm GI: Inspection: Yes normal to inspection Palpation (GI): Soft to palpation Skin: General skin exam: no rashes or lesions noted and elasticity normal Course Reevaluation(s) Reevaluation #1: still sleeping ,respond to painful stimuli,CBC normal, WBC normal Reevaluation #2: I re-evaluated the patient at this time the patient is now awake alert follow command. Anticipate discharge back to the intermediate on Keppra. Time: 16:20 Reevaluation #3: I re-examined the patient at this time he is now awake and alert asking to go to the bathroom, he was observed in the emergency room for about 3 hours remained stable seizure free. I think at this point can be safely discharged back to the nursing facility I think it is reasonable to resume his Keppra 500 mg twice a day to start. Time: 16:47 Medications Administered Discontinued Medications Generic Name Dose Route Start Last Admin Trade Name Freq PRN Reason Stop Dose Admin Levetiracetam 1,500 mg in 100 mls @ 400 mls/hr 09/05/24 13:50 09/05/24 14:28 Keppra IV 09/05/24 14:04 Infused ONCE ONE Infusion Sodium Chloride 500 mls @ 500 mls/hr 09/05/24 14:30 09/05/24 14:28 Ns IV 09/05/24 15:29 500 mls/hr .Q1H MIGNON Administration Medical Decision Making Medical Decision Making [facility] Narrative: Patient is here after seizure we will check labs electrolytes, we will load him with Keppra Differential Diagnosis Differential Diagnoses: The differential diagnosis associated with the presentation includes Electrolytes normality hypomagnesemia seizure alcohol withdrawal Admission/Observation Consideration of admission/observation: Escalation of care including admission/observation considered Lab Data [facility] Lab Attestation statement: I reviewed the patient's lab results. 09/05/24 14:59 09/05/24 14:59 Labs: Lab Results 09/05/24 Range/Units 14:59 WBC 8.2 (4.8-10.8) X10*3/uL RBC 5.12 (4.60-5.80) X10*6/uL Hgb 16.1 (14.0-18.0) g/dl Hct 45.2 (42.0-52.0) % MCV 88.3 (80.0-98.0) fL MCH 31.4 (27.0-33.0) pg MCHC 35.6 (31.0-36.0) g/dl RDW 13.4 (11.0-16.0) % Plt Count 172 (160-400) X10*3/uL MPV 9.8 (9.4-12.4) fL Immature Gran % (Auto) 0.2 (0.0-0.4) % Neut % (Auto) 68.1 (45-73) % Lymph % (Auto) 21.5 (20-40) % [place] % (Auto) 7.3 (2-11) % Eos % (Auto) 2.4 (0-4) % Baso % (Auto) 0.5 (0-2) % Lymph # (Auto) 1.8 (1.2-4.9) X10*3/uL [place] # (Auto) 0.6 (0.1-1.2) X10*3/uL Eos # (Auto) 0.2 (0.0-0.4) X10*3/uL Baso # (Auto) 0.0 (0.0-0.2) X10*3/uL Abs Immat Gran (auto) 0.02 (0.00-0.03) X10*3/uL Absolute Neuts (auto) 5.6 (2.0-8.3) x10*3/uL Absolute Nucleated RBC 0.000 (0.0-0.012) X10*3/uL Nucleated RBC % (auto) 0.0 (0.0-0.2) /100WBC Sodium 137 (135-145) mmol/L Potassium 4.0 (3.3-5.1) mmol/L Chloride 106 (96-108) mmol/L Carbon Dioxide 24 (22-29) mmol/L Anion Gap 11 L (12-20) BUN 10 (9-16) mg/dL Creatinine 0.70 (0.5-1.4) mg/dL Estim Creat Clear Calc 92.0 Estimated GFR > 60 Random Glucose 164 H (60-115) mg/dL Calcium 8.8 (8.4-10.2) mg/dL Magnesium 2.1 (1.6-2.6) mg/dL Total Bilirubin 1.4 H (0.0-1.0) mg/dL AST 42 H (5-37) U/L ALT 31 (0-40) U/L Alkaline Phosphatase 136 H (39-117) U/L Total Protein 7.1 (6.5-8.0) g/dL Albumin 3.5 (3.5-5.0) g/dL Independent Historian I spoke with the staff at the intermediate. External Record Review External record reviewed: Inpatient record Critical Care Time Critical Care Time Critical Care Time: Yes Total Critical Care Time: 60 Attestation: seizure postictal Discharge Plan Discharge Clinical Impression: Seizure Patient Disposition: [facility] Bed Instructions: Recurrent Seizures in Adults (ED) Additional Instructions: Resume Keppra 500 mg twice a day. Return to the emergency room if worse follow- up with your primary care physician, also we will give you the name of the neurologist for follow-up. We sent a prescription for you to [facility] pharmacy [address] [place] [address] Prescriptions: New levetiracetam [Keppra] 500 mg tablet 500 mg PO BID Qty: 60 0RF No Action multivitamin Tablet 1 tab PO DAILY latanoprost 0.005 % drops 1 drp ophthalmic (eye) BEDTIME atorvastatin 80 mg tablet 1 tab PO DAILY acetaminophen [Tylenol] 325 mg Tablet 650 mg PO Q4H PRN (Reason: PAIN OR TEMP >100F) donepezil 5 mg tablet 1 tab PO BEDTIME naltrexone 50 mg tablet 1 tab PO QAM melatonin 3 mg Tablet 6 mg PO BEDTIME PRN (Reason: Insomnia) amlodipine 5 mg tablet 1 tab PO DAILY citalopram 20 mg tablet 1 tab PO DAILY magnesium hydroxide [Milk of Magnesia] 400 mg/5 mL Suspension 30 ml PO BEDTIME PRN (Reason: Constipation) aspirin 81 mg Tablet,Chewable 81 mg PO DAILY folic acid 1 mg Tablet 1 mg PO DAILY thiamine HCl (vitamin B1) 100 mg tablet 100 mg PO DAILY Qty: 30 0RF dextrose [Glucose Gel] 40 % Gel 20 g PO Q15M PRN (Reason: Hypoglycemia) levetiracetam [Keppra] 500 mg tablet 500 mg PO BID Qty: 30 0RF Referrals: Miles Moya MD [Physician] - (Call neurologist make an appointment for follow-up) Print Language: Italian
--- NOTE | 2024-09-05 13:57 | MHC.EDTECH ---
Patient is off to CT. Delayed on EKG for that reason.
[2024-09-05] MEDS: levETIRAcetam in NaCl (iso-os) 1,500 MG/100 ML PIGGYBACK 400 MG IV (14:27)
[2024-09-05] MEDS: 0.9 % Sodium Chloride 500 ML IV (14:28)
[2024-09-05 15:03] LABS: MANUAL DIFF FLAG NO
[2024-09-05 15:04] LABS: Basophils Percent Auto 0.5 % (0-2); Eosinophils Absolute Auto 0.2 X10*3/uL (0.0-0.4); Eosinophils Percent Auto 2.4 % (0-4); Hematocrit 45.2 % (42.0-52.0); Hemoglobin 16.1 g/dl (14.0-18.0); Imm Gran Abs Auto 0.02 X10*3/uL (0.00-0.03); Imm Gran Pct Auto 0.2 % (0.0-0.4); Lymphocytes Absolute Auto 1.8 X10*3/uL (1.2-4.9); Lymphocytes Percent Auto 21.5 % (20-40); Mean Corpuscular HGB Conc 35.6 g/dl (31.0-36.0); Mean Corpuscular Hemoglobin 31.4 pg (27.0-33.0); Mean Corpuscular Volume 88.3 fL (80.0-98.0); Mean Platelet Volume 9.8 fL (9.4-12.4); Monocytes Absolute Auto 0.6 X10*3/uL (0.1-1.2); Monocytes Percent Auto 7.3 % (2-11); Neutrophils Absolute Auto 5.6 x10*3/uL (2.0-8.3); Neutrophils Percent Auto 68.1 % (45-73); Platelet Count 172 X10*3/uL (160-400); Red Blood Count 5.12 X10*6/uL (4.60-5.80); Red Cell Distribution Width 13.4 % (11.0-16.0); White Blood Count 8.2 X10*3/uL (4.8-10.8)
[2024-09-05 15:32] LABS: Alanine Aminotransferase 31 U/L (0-40); Albumin Level 3.5 g/dL (3.5-5.0); Anion Gap 11 (12-20); Aspartate Amino Transferase 42 U/L (5-37); Bilirubin Total 1.4 mg/dL (0.0-1.0); Blood Urea Nitrogen 10 mg/dL (9-16); Calcium 8.8 mg/dL (8.4-10.2); Carbon Dioxide 24 mmol/L (22-29); Chloride 106 mmol/L (96-108); Estimated Glomerular Filt Rate > 60; Glucose Random 164 mg/dL (60-115); Magnesium 2.1 mg/dL (1.6-2.6); Sodium 137 mmol/L (135-145); Total Protein 7.1 g/dL (6.5-8.0)
[2024-09-05 16:26] LABS: Alkaline Phosphatase 136 U/L (39-117)
[2024-09-05 16:52] VITALS: BP 108/75; PULSE 78; RESP 14; O2SAT 94
--- NOTE | 2024-09-05 19:14 | PC.NURSE ---
Report called on pts return to facility, EMS report given, IV removed prior to dispo. Pt remained seizure free in ED, given a dose of keppra and rx sent for continuation at facility, since medication had been stopped.
== END 2024-09-05 19:17 | disposition swing bed (61) ==
PROVIDERS: Emergency Provider Emergency Medicine; PCP Internal Medicine
DX: R56.9 Unspecified convulsions (principal); E11.9 Type 2 diabetes mellitus without complications; I10 Essential (primary) hypertension; F10.27 Alcohol dependence with alcohol-induced persisting dementia; E51.2 Wernicke's encephalopathy; Z79.02 Long term (current) use of antithrombotics/antiplatelets; Z79.899 Other long term (current) drug therapy; Z79.82 Long term (current) use of aspirin
CPT/HCPCS: 36415; 70450; 80053; 83735; 85025; 93005; 96361; 96374; 99284; J1953

== ENCOUNTER → 2024-09-05 13:53 | Outpatient (BNV) | payer MEDICARE, MEDICAID, SELFPAY | PROVIDERS: Emergency Provider Emergency Medicine; PCP Internal Medicine; Visit Provider Internal Medicine | DX: I44.0 Atrioventricular block, first degree (principal); I25.2 Old myocardial infarction | CPT/HCPCS: 93010 ==

== ENCOUNTER → 2024-09-05 13:53 | Outpatient (BNV) | payer MEDICARE, MEDICAID, SELFPAY | PROVIDERS: Emergency Provider Emergency Medicine; PCP Internal Medicine; Visit Provider Radiology Diagnostic Radiology | DX: R56.9 Unspecified convulsions (principal) | CPT/HCPCS: 70450 ==